=== PATIENT | female | born 1990 | race Caucasian/White ===

== ENCOUNTER 2017-12-15 18:28 | Outpatient (CLI) | payer MEDICAID ==
[2017-12-15] MEDS ORDERED: TERBUTALINE 1 MG/ML VIAL SUBQ ONE (19:12)
[2017-12-15 19:34] VITALS: BP 130/56
[2017-12-15] MEDS ORDERED: TERBUTALINE 1 MG/ML VIAL SUBQ SCH (20:00)
[2017-12-15] MEDS ORDERED: TERBUTALINE 2.5 MG TABLET PO SCH ×2 (20:12→21:00)
[2017-12-15] MEDS ORDERED: TERBUTALINE 2.5 MG TABLET PO PRN (21:00)
== END 2017-12-15 20:52 | disposition home or self-care (01) ==
LOC: WFO 18:28 → FBP 18:36 → WFO 20:52
PROVIDERS: ATTEND Obstetrics & Gynecology
DX: O47.03 False labor before 37 completed weeks of gestation, third trimester (principal); Z3A.34 34 weeks gestation of pregnancy; O99.89 Other specified diseases and conditions complicating pregnancy, childbirth and the puerperium; R10.11 Right upper quadrant pain; R51 Headache
CPT/HCPCS: 82731; 96372; 99213; A9270

== ENCOUNTER 2018-01-11 20:22 | Outpatient (CLI) | payer MEDICAID ==
[2018-01-11 20:44] VITALS: BP 121/76
== END 2018-01-11 21:48 | disposition home or self-care (01) ==
LOC: WFO 20:22 → FBP 20:25 → WFO 21:48
PROVIDERS: ATTEND Obstetrics & Gynecology
DX: Z34.03 Encounter for supervision of normal first pregnancy, third trimester (principal); Z3A.37 37 weeks gestation of pregnancy
CPT/HCPCS: 99213

== ENCOUNTER 2018-01-19 12:46 | Outpatient (CLI) | payer MEDICAID ==
[2018-01-19 12:59] VITALS: BP 127/79
[2018-01-19 14:15] LABS: RUPTURE OF MEMBRANES PLUS NEGATIVE (NEGATIVE)
== END 2018-01-19 14:30 | disposition home or self-care (01) ==
LOC: WFO 12:46 → FBP 12:46 → WFO 14:30
PROVIDERS: ATTEND Obstetrics & Gynecology
DX: O75.89 Other specified complications of labor and delivery (principal); Z3A.37 37 weeks gestation of pregnancy
CPT/HCPCS: 84112; 99213

== ENCOUNTER 2019-01-10 15:23 | Emergency (ER) | payer MEDICAID ==
[2019-01-10 16:04] LABS: BILIRUBIN,URINE NEGATIVE (NEGATIVE); CLARITY,URINE CLEAR (CLEAR); GLUCOSE, URINE (UA) NEGATIVE (NEGATIVE); KETONES,URINE (UA) NEGATIVE (NEGATIVE); LEUKOCYTE ESTERASE, URINE NEGATIVE (NEGATIVE); NITRITE,URINE NEGATIVE (NEGATIVE); OCCULT BLOOD,URINE TRACE-LYSE (NEGATIVE); PROTEIN,URINE NEGATIVE (NEGATIVE); UROBILINOGEN,URINE 0.2 (NORMAL) E.U./dL (NORMAL)
[2019-01-10 16:07] LABS: HCG UR QUAL POSITIVE
--- NOTE | 2019-01-10 17:18 | Ultrasound Report ---
Reason: vaginal bleeding Procedure Date: 01/10/2019 Accession Number: [id number] / [id number] Procedure: US - OB First Trimester CPT Code: FULL RESULT: EXAM: FIRST TRIMESTER OBSTETRIC ULTRASOUND (Less than 11 weeks) EXAM DATE: 01/10/2019 04:49 PM. CLINICAL HISTORY: Vaginal bleeding. LMP: 11/23/2018. COMPARISONS: None. TECHNIQUE: Transabdominal and transvaginal ultrasound examination with static image documentation. ASSESSMENT: Gestational Sac: Single intrauterine. Mean gestational sac diameter: 8 mm = 4 weeks 5 days. Embryo: CRL (crown-rump length) 3 mm = 5 weeks 6 days. Cardiac activity: 113 beats per minute. Yolk sac: 2 mm. Amniotic fluid: Not accurately assessed at this gestational age. Early placenta: Not visible at this gestational age. Other: No perigestational fluid collection demonstrated. MATERNAL STRUCTURES: Uterus: Anteverted. Unremarkable. Cervix: Closed. Right Ovary/Adnexa: Unremarkable. Left Ovary/Adnexa: Unremarkable. Free Fluid: None. Other: None. IMPRESSION: There is a single live intrauterine gestation. [place]-rump length of 0.3 cm corresponds to an estimated gestational age by ultrasound of 5 weeks 6 days. heart rate is 113 bpm. No significant perigestational or adnexal abnormalities are seen. RADIA
--- NOTE | 2019-01-10 17:34 | ED Physician Documentation ---
PD HPI ABD PAIN - Stated complaint Stated Complaint: FEM /7WKS PREG - Chief complaint Chief Complaint: Abd Pain - History obtained from History obtained from: Patient - History of Present Illness Timing - onset: Other ( at 6-7 weeks presents with ongoing light vaginal bleeding for a few days. She was seen in the clinic but was unable to obtain an outpatient ultrasound. Blood type is known to be O+.) Review of Systems Constitutional: reports: Reviewed and negative Cardiac: reports: Reviewed and negative Respiratory: reports: Reviewed and negative PD PAST MEDICAL HISTORY - Allergies Allergies/Adverse Reactions: Allergies Allergy/AdvReac Type Severity Reaction Status Date / Time Sulfa (Sulfonamide Allergy Unknown Unknown Verified 01/10/19 15:40 Antibiotics) PD ED PE NORMAL - Vitals Vital signs reviewed: Yes - General General: Alert and oriented X 3, No acute distress - Abdomen Abdomen: Soft, Non tender - Neuro Neuro: Alert and oriented X 3, Normal speech Results - Vitals Vitals: Vital Signs - 24 hr 01/10/19 15:36 Temperature 36.6 C Heart Rate 97 Respiratory 18 Rate Blood Pressure 132/69 H O2 Saturation 100 Oxygen O2 Source Room air - Labs Labs: Laboratory Tests 01/10/19 01/10/19 01/10/19 15:57 15:57 16:00 Urine Color YELLOW Urine Clarity CLEAR Urine pH 6.0 Ur Specific [place] <=1.005 <=1.005 Urine Protein NEGATIVE Urine Glucose (UA) NEGATIVE Urine Ketones NEGATIVE Urine Occult Blood TRACE-LYSE Urine Nitrite NEGATIVE Urine Bilirubin NEGATIVE Urine Urobilinogen 0.2 (NORMAL) Ur Leukocyte Esterase NEGATIVE Ur Microscopic Review NOT INDICATED Urine Culture Comments NOT INDICATED Urine HCG, Qual POSITIVE Blood Type O POSITIVE - Rads (name of study) OB sono Radiology: EMP read contemporaneously (Single live intrauterine with gestational age of 5 weeks and 6 days, heart rate 113.) Departure - Departure Disposition: 01 Home, Self Care Clinical Impression: Threatened affecting intrauterine Condition: Good Record reviewed to determine appropriate education?: Yes Comments: Return for new or worsening symptoms, follow-up with your OB later this week.
[2019-01-10 17:47] VITALS: BP 115/80
== END 2019-01-10 17:50 | disposition home or self-care (01) ==
LOC: ED 15:23
DX: O20.0 Threatened abortion (principal); Z3A.01 Less than 8 weeks gestation of pregnancy
CPT/HCPCS: 36415; 76801; 76817; 81001; 81003; 81025; 86900; 86901; 87086; 99283

== ENCOUNTER 2019-04-10 06:59 | Emergency (ER) | payer MEDICAID ==
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
--- NOTE | 2019-04-10 08:50 | Ultrasound Report ---
Reason: abdominal contusion right sided pain/contractions Procedure Date: 04/10/2019 Accession Number: [id number] / [id number] Procedure: US - OB 14+ Weeks CPT Code: FULL RESULT: EXAM: FOLLOW-UP OBSTETRICAL ULTRASOUND EXAM DATE: 04/10/2019 07:40 AM. CLINICAL HISTORY: Abdominal contusion right sided pain/contractions. COMPARISON: OB FIRST TRIMESTER 01/10/2019 4:17 PM. TECHNIQUE: Real-time sonographic evaluation of the fetus performed by the court stenographer. Additional transvaginal imaging to more accurately evaluate cervical length/placental position/etc. Multiple airline security representative static images were saved for review. DATING: DATING: Established EGA 18 weeks 3 days with RITA 09/08/2019 per patient stated RITA. EGA by prior ultrasound of 01/10/2019 18 weeks 5 days with RITA 09/06/2019. EGA by current ultrasound 18 weeks 2 days with RITA 09/09/2019. GENERAL EVALUATION Bartholomew . Cardiac activity: 146 bpm. movement: Visualized. Presentation: Cephalic. Placenta: Anterior/maternal right position. Focal thickening of the anterior lower uterine segment probably contraction. Amniotic fluid: Objectively normal. MVP 5.9 cm. BIOMETRY Bi-Parietal Diameter (BPD): 4.3 cm, 18 weeks 6 days Head Circumference (HC): 15.4 cm, 18 weeks 2 days Abdominal Circumference (AC): 13.2 cm, 18 weeks 4 days Femur Length (FL): 2.6 cm, 18 weeks 6 days Estimated Weight: 236 g, 41 percentile for 18 weeks 3 days. ANATOMY Limited evaluation of anatomy. No gross abnormality. MATERNAL STRUCTURES Cervix appears closed measuring 4.2 cm transabdominally. Otherwise unremarkable to the extent visualized. IMPRESSION: 1. Bartholomew live intrauterine with gestational age 18 weeks 3 days (RITA 09/08/2019) based on patient stated RITA. 2. Estimated weight is within expected limits for assigned dating. 3. Probable lower uterine segment contraction. Consider short interval follow-up ultrasound to confirm resolution. RADIA
[2019-04-10 09:30] LABS: BILIRUBIN,URINE NEGATIVE (NEGATIVE); GLUCOSE, URINE (UA) NEGATIVE (NEGATIVE); KETONES,URINE (UA) NEGATIVE (NEGATIVE); LEUKOCYTE ESTERASE, URINE NEGATIVE (NEGATIVE); NITRITE,URINE NEGATIVE (NEGATIVE); OCCULT BLOOD,URINE NEGATIVE (NEGATIVE); PH,URINE 6.5 PH (5.0-7.5); PROTEIN,URINE NEGATIVE (NEGATIVE); UROBILINOGEN,URINE 0.2 (NORMAL) E.U./dL (NORMAL)
[2019-04-10 09:33] LABS: CLARITY,URINE CLEAR (CLEAR)
[2019-04-10] MEDS ORDERED: NIFEdipine 10 MG CAPSULE PO STA (09:47)
[2019-04-10] MEDS ORDERED: ONDANSETRON 4 MG/2 ML VIAL IVP STA (12:12)
[2019-04-10] MEDS ORDERED: ONDANSETRON ODT 4 MG TABLET TL STA ×2 (12:13→12:46)
[2019-04-10 13:17] VITALS: BP 115/73
== END 2019-04-10 13:22 | disposition home or self-care (01) ==
LOC: ED 06:59
DX: O99.89 Other specified diseases and conditions complicating pregnancy, childbirth and the puerperium (principal); S30.1XXA Contusion of abdominal wall, initial encounter; X50.9XXA Other and unspecified overexertion or strenuous movements or postures, initial encounter; Y93.89 Activity, other specified
CPT/HCPCS: 76805; 81003; 87210; 99283; A9270; Q0162; 81001; 87086

== ENCOUNTER 2019-06-27 09:01 | Outpatient (CLI) | payer MEDICAID ==
[2019-06-27 09:33] VITALS: BP 129/81
[2019-06-27 10:01] LABS: BASOPHILS % (AUTO) 0.4 %; EOSINOPHILS # (AUTO) 0.1 10^3/uL (0.0-0.7); HGB - HEMOGLOBIN 11.7 g/dL (12.0-16.0); LYMPHOCYTES # (AUTO) 1.2 10^3/uL (1.5-3.5); LYMPHOCYTES % (AUTO) 10.7 %; MEAN CORPUSCULAR HEMOGLOBIN 30.6 pg (27.0-31.0); MEAN CORPUSCULAR HGB CONC 33.5 g/dL (32.0-36.0); MEAN CORPUSCULAR VOLUME 91.4 fL (81.0-99.0); MEAN PLATELET VOLUME 9.8 fL (7.9-10.8); MONOCYTES # (AUTO) 0.9 10^3/uL (0.0-1.0); MONOCYTES % (AUTO) 8.3 %; NEUTROPHILS # (AUTO) 8.7 10^3/uL (1.5-6.6); NEUTROPHILS % (AUTO) 78.9 %; PLT - PLATELET COUNT 222 10^3/uL (130-450); RED BLOOD COUNT 3.82 10^6/uL (4.20-5.40); RED CELL DISTRIBUTION WIDTH 12.1 % (12.0-15.0)
[2019-06-27 10:22] LABS: BILIRUBIN,URINE NEGATIVE (NEGATIVE); GLUCOSE, URINE (UA) NEGATIVE (NEGATIVE); KETONES,URINE (UA) NEGATIVE (NEGATIVE); LEUKOCYTE ESTERASE, URINE NEGATIVE (NEGATIVE); NITRITE,URINE NEGATIVE (NEGATIVE); OCCULT BLOOD,URINE NEGATIVE (NEGATIVE); PROTEIN,URINE NEGATIVE (NEGATIVE); UROBILINOGEN,URINE 0.2 (NORMAL) E.U./dL (NORMAL)
[2019-06-27 10:28] LABS: CLARITY,URINE CLEAR (CLEAR)
[2019-06-27 10:33] LABS: BACTERIA,URINE Rare /HPF (None Seen); RBC,URINE 0-5 /HPF (0-5); SQUAMOUS EPITHELIAL CELL,UR FEW Squamous (<= Few)
[2019-06-27] MEDS ORDERED: SODIUM CHLORIDE FLUSH 0.9% 10 ML SYRINGE ONE ×2 (12:39→13:08)
[2019-06-27] MEDS ORDERED: LACTATED RINGERS 1,000 ML IV ONE ×2 (12:39→13:45)
--- NOTE | 2019-06-27 14:30 | PROVIDER PROGRESS NOTE ---
- HPI Chief Complaint: Labor Check (The patient came in todayComplaining of lower pelvic pain mostly on the right at first and then bilateral as well as low back pain. She is a patient of [facility]. She is a 28-year-old 3 Para 1-0-1-1. She has an RITA of 09/08/2019.She had intercourse last night and had some spotting earlier.She denies any fevers or chills or vaginal fluid.) Current : Vital Signs Temperature 37.2 C 06/27/19 09:29 Heart Rate 98 06/27/19 09:29 Respiratory Rate 17 06/27/19 09:29 Blood Pressure 129/81 H 06/27/19 09:29 O2 Saturation 100 06/27/19 09:29 Temperature 37.2 C 06/27/19 09:29 Heart Rate 98 06/27/19 09:29 Respiratory Rate 17 06/27/19 09:29 Blood Pressure 129/81 H 06/27/19 09:29 O2 Saturation 100 06/27/19 09:29 - Procedures OB Procedure Performed: NST Diagnosis/Indication for NST: Other ( contractions) NST Procedure: The fetus is reactive. Service Date of procedure: 06/27/19 Findings: The fetus is reactive. - Plan Plan: Physical exam: Heart: Regular rate and rhythm without murmur Lungs: Lungs are clear to auscultation bilaterally without wheezes, Rales or rhonchi Neck: Neck is supple without thyromegaly, cervical lymphadenopathy or supraclavicular lymphadenopathy. Abdomen: The abdomen is soft, pliable and nontender. She has normoactive bowel sounds. The uterus is soft and nontender. She appears to be having some very mild contractions on the monitor when she arrived. These are not even palpable however on exam. Pelvic: The cervix is thick closed and posterior. No parts are noted in the pelvis at all. The patient was hydrated. A urine and CBC were both unremarkable.After hydration there was no contractions noted all the patient also stated that she felt better. When she first arrived the nurse tried to have her take p.o. fluids but she really was not taking much with regards to p.o. fluids.The IV was therefore started.Her cervix was rechecked after approximately 2-1/2 to 3 hours and no cervical changes were appreciated. Impression: at29 weeks and 4 days gestation. Mild dehydration. Plan: The patient is being discharged home. She will follow-up with her regular OB provider. She will follow-up at [facility] if she has any further problems.
== END 2019-06-27 14:20 | disposition home or self-care (01) ==
LOC: WFO 09:01 → FBP 09:03 → WFO 14:20
PROVIDERS: ATTEND Obstetrics & Gynecology
DX: O99.283 Endocrine, nutritional and metabolic diseases complicating pregnancy, third trimester (principal); E86.0 Dehydration; Z3A.29 29 weeks gestation of pregnancy
CPT/HCPCS: 36415; 81001; 85025; 99214; J7120; 59025; 87086

== ENCOUNTER 2019-07-30 17:19 | Outpatient (CLI) | payer MEDICAID ==
[2019-07-30 17:33] VITALS: BP 130/74
--- NOTE | 2019-07-30 18:51 | PROVIDER PROGRESS NOTE ---
- HPI Chief Complaint: Labor Check Current : Current EDU 09/08/19 Gestation 34 Weeks and 2 Days 3 Para 1 Vital Signs Temperature 37.1 C 07/30/19 17:30 Heart Rate 100 07/30/19 17:30 Respiratory Rate 18 07/30/19 17:30 Blood Pressure 130/74 07/30/19 17:30 O2 Saturation 100 07/30/19 17:30 Temperature 37.1 C 07/30/19 17:30 Heart Rate 100 07/30/19 17:30 Respiratory Rate 18 07/30/19 17:30 Blood Pressure 130/74 07/30/19 17:30 O2 Saturation 100 07/30/19 17:30 The patient came to labor and delivery tonight for evaluation of your contractions. She stated that they began somewhat abruptly at about 3:00 this afternoon and were occurring about every 2 minutes and got stronger. She denied any vaginal bleeding or fluid. She did say that she passed a lot of mucus yesterday.She is without other complaint. She states that she is to deliver at [facility] due to possible skeletal dysplasia with regards to the fetus. Review of her last note reports that diagnosis somewhat in question at this time but still for safeguard reason she will deliver there. - Exam Lungs: Lungs were clear to auscultation bilaterally without wheezes rales or rhonchi Heart: Heart has regular rate and rhythm without murmur Abdomen: The abdomen is soft, pliable and nontender. The patient is having somewhat irregular contractions palpated. The uterus is soft and nontender between actually moderate contractions. Pelvic the labor and delivery nurse checked her about 45 minutes ago and her cervix at that time was reported to be 1 to 2 cm. My exam at this time reveals it to be unchanged. She appears to be may be 25% effaced. Cervix is posterior. The fetus is at a -2 station.There is a category 1 EFM noted. The fetus has good accelerations. The patient has now been in labor and delivery for proximately 2 hours. Her cervix is again rechecked and found to be completely unchanged.Contractions are somewhat irregular.A category 1 EFM is still noted - Procedures Findings: Impression: Intrauterine at 34 weeks 2 days gestation False labor Rule out early labor Possible skeletal dysplasia Plan: The patient is going to be discharged home. She was told that if she begins having strong contractions which occur every 5 minutesOr if she has vaginal bleeding or fluid to come back here or to had to [facility] for further evaluation.Her next appointment is on 08/08/2019.She was told to keep that appointment.Again her care at this point in time has been transferred completely to [facility] from [facility].
== END 2019-07-30 20:08 | disposition home or self-care (01) ==
LOC: WFO 17:19 → FBP 17:21 → WFO 20:08
PROVIDERS: ATTEND Obstetrics & Gynecology
DX: O47.03 False labor before 37 completed weeks of gestation, third trimester (principal); Z3A.34 34 weeks gestation of pregnancy
CPT/HCPCS: 59025; 99214

== ENCOUNTER 2019-11-04 05:38 | Emergency (ER) | payer MEDICAID ==
[2019-11-04] MEDS ORDERED: ONDANSETRON ODT 4 MG TABLET TL STA (05:54)
--- NOTE | 2019-11-04 05:57 | ED Physician Documentation ---
History of Present Illness - Stated complaint Stated Complaint: CHEST PX/ ARMS HEAVY, N/V - Chief complaint Chief Complaint: Cardiac - Additonal information Additional information: This is a 29-year-old female who presents with chest pain and left arm tingling. Patient was up around 3 hours ago with her young child, and she suddenly began developing some pain in her chest, which was substernal, and was followed by her left arm going numb and tingly. The subsequently resolved, patient states that she has been under a lot of stress and not sleeping well because the new child. She is about 9 weeks . She denies any history of blood clots, no leg swelling, her breathing feels normal at this time. She has no fever, no abdominal pain. She did vomit at home prior to arrival. Review of Systems Constitutional: denies: Fever Cardiac: reports: Chest pain / pressure Respiratory: denies: Hemoptysis GI: denies: Abdominal Pain : denies: Dysuria Skin: denies: Rash Neurologic: denies: Generalized weakness Immunocompromised: denies: Immunocompromised PD PAST MEDICAL HISTORY - Past Surgical History Past Surgical History: No - Present Medications Home Medications: Ambulatory Orders Medication Instructions Recorded Confirmed Sertraline [Zoloft] 25 mg PO DAILY 11/04/19 11/04/19 - Allergies Allergies/Adverse Reactions: Allergies Allergy/AdvReac Type Severity Reaction Status Date / Time Sulfa (Sulfonamide Allergy Unknown Unknown Verified 11/04/19 05:45 Antibiotics) - Social History Does the pt smoke?: No Smoking Status: Never smoker Does the pt drink ETOH?: No Does the pt have substance abuse?: No - Immunizations Immunizations are current?: Yes PD ED PE NORMAL - Vitals Vital signs reviewed: Yes - General General: Alert and oriented X 3, No acute distress - HEENT HEENT: PERRL - Neck Neck: Supple, no meningeal sign - Cardiac Cardiac: Other (Tachycardic, regular rhythm) - Respiratory Respiratory: No respiratory distress, Clear bilaterally - Abdomen Abdomen: Normal bowel sounds, Soft, Non distended, Other (Mild epigastric tenderness with very deep palpation, abdomen is otherwise nontender. No RUQ tenderness) - Derm Derm: Warm and dry - Extremities Extremities: No deformity - Neuro Neuro: Alert and oriented X 3, supply chain development manager 2-12 intact, No motor deficit, No sensory deficit, Normal speech - Psych Psych: Normal mood, Normal affect Results - Vitals Vitals: Vital Signs - 24 hr 11/04/19 11/04/19 11/04/19 05:42 06:04 06:25 Temperature 36.7 C Heart Rate 101 H 97 93 Respiratory 16 27 H 17 Rate Blood Pressure 142/85 H 156/107 H 156/107 H O2 Saturation 96 95 96 Oxygen O2 Source Room air - EKG (time done) 5:54 Other comments: Other comments (Rate 93, rhythm sinus, there is no ST segment elevation or depression, no abnormal T wave inversions.) - Labs Labs: Laboratory Tests 11/04/19 11/04/19 11/04/19 06:00 06:00 06:00 WBC 4.0 L RBC 4.46 Hgb 13.7 Hct 41.5 MCV 93.0 MCH 30.7 MCHC 33.0 RDW 14.9 Plt Count 185 MPV 9.4 Neut # (Auto) 2.9 Lymph # (Auto) 0.7 L [place] # (Auto) 0.4 Eos # (Auto) 0.0 Baso # (Auto) 0.0 Absolute Nucleated RBC 0.00 Nucleated RBC % 0.0 D-Dimer Sodium 138 Potassium 3.7 Chloride 101 Carbon Dioxide 23 Anion Gap 14.0 H BUN 11 Creatinine 0.5 Estimated GFR (MDRD) 144 Glucose 90 Calcium 8.6 Total Bilirubin 0.9 AST 210 H ALT 191 H Alkaline Phosphatase 82 Troponin I High Sens < 2.3 L Total Protein 7.8 Albumin 4.5 Globulin 3.3 Albumin/Globulin Ratio 1.4 Lipase 24 HCG, Quant 11/04/19 11/04/19 06:00 06:00 WBC RBC Hgb Hct MCV MCH MCHC RDW Plt Count MPV Neut # (Auto) Lymph # (Auto) [place] # (Auto) Eos # (Auto) Baso # (Auto) Absolute Nucleated RBC Nucleated RBC % D-Dimer 233.0 Sodium Potassium Chloride Carbon Dioxide Anion Gap BUN Creatinine Estimated GFR (MDRD) Glucose Calcium Total Bilirubin AST ALT Alkaline Phosphatase Troponin I High Sens Total Protein Albumin Globulin Albumin/Globulin Ratio Lipase HCG, Quant < 0.60 - Rads (name of study) Chest Radiology: Other (No acute cardiopulmonary abnormality) RUQ US Radiology: Other (Increased echogenicity of the liver, representing potentially fatty liver disease. No gallstones, gallbladder wall edema, or common bile duct dilation.) PD MEDICAL DECISION MAKING - ED course Complexity details: considered differential (ACS, dysrhythmia, PE, anxiety, biliary colic, cholecystitis, choledocholithiasis, hepatitis, electrolyte abnormality) ED course: On arrival patient is mildly tachycardic, well-appearing with a normal neurologic exam. Her EKG shows no convincing signs of ischemia or dysrhythmia. Labs were drawn, and her blood counts are unremarkable, HS troponin is negative, given her history, and low cardiac risk factors ACS is extremely unlikely. PE also is unlikely, but given that she is tachycardic a d-dimer was obtained and is negative. Chest x-ray shows no acute cardiopulmonary abnormality. Her labs are notable for an ALT and AST elevation, reviewing her past records I do not see any prior values for comparison. She is not really tender in her abdomen, but given her vomiting, right upper quadrant ultrasound was obtained and shows likely fatty liver disease with no signs of acute biliary pathology. On repeat examination patient is feeling well, her abdomen is soft and non-tender, she is tolerating PO fluids without issue, she has had no further chest pain or arm symptoms. I discussed the results, return precautions, and the importance of following up closely with her primary care provider on both her symptoms and her LFT elevations. It also sounds like patient has been under a lot of stress with her new baby, she has no SI, and it sounds like she has excellent support network and plans to lean on them more going forward. Patient agrees with this plan and was discharged home in the care of family. Departure - Departure Disposition: 01 Home, Self Care Clinical Impression: Elevated LFTs Chest pain Qualifiers: Chest pain type: unspecified Qualified Code(s): R07.9 - Chest pain, unspecified Condition: Good Instructions: ED Chest Pain Atypical Unkn Cause Follow-Up: Your,PCP [Other] Comments: You were seen today for an episode of chest pain, arm tingling, and vomiting. Your labs today are overall reassuring, though your liver enzymes are somewhat elevated (AST 210, ALT 190 alk phos 82, bilirubin 0.9). We do not see signs of acute problems with your gallbladder, but there is some fatty liver on ultras ound. Please follow-up on your liver enzyme tests with your primary care provider. If you are having worsening symptoms such as recurring or worsening chest pain, repeated vomiting, abdominal pain, yellowing of your skin, or fever, return to the emergency department.
[2019-11-04 06:11] LABS: BASOPHILS % (AUTO) 0.7 %; EOSINOPHILS % (AUTO) 0.5 %; HGB - HEMOGLOBIN 13.7 g/dL (12.0-16.0); LYMPHOCYTES # (AUTO) 0.7 10^3/uL (1.5-3.5); LYMPHOCYTES % (AUTO) 17.4 %; MEAN CORPUSCULAR HEMOGLOBIN 30.7 pg (27.0-31.0); MEAN PLATELET VOLUME 9.4 fL (7.9-10.8); MONOCYTES # (AUTO) 0.4 10^3/uL (0.0-1.0); MONOCYTES % (AUTO) 9.5 %; NEUTROPHILS # (AUTO) 2.9 10^3/uL (1.5-6.6); NEUTROPHILS % (AUTO) 71.7 %; PLT - PLATELET COUNT 185 10^3/uL (130-450); RED BLOOD COUNT 4.46 10^6/uL (4.20-5.40); RED CELL DISTRIBUTION WIDTH 14.9 % (12.0-15.0)
[2019-11-04 06:26] LABS: ALBUMIN 4.5 g/dL (3.2-5.5); ALBUMIN/GLOBULIN RATIO 1.4 (1.0-2.2); BILIRUBIN,TOTAL 0.9 mg/dL (0.2-1.0); CALCIUM 8.6 mg/dL (8.5-10.3); CREATININE 0.5 mg/dL (0.4-1.0); TOTAL PROTEIN 7.8 g/dL (6.7-8.2)
--- NOTE | 2019-11-04 06:53 | XRAY Report ---
Reason: cough Procedure Date: 11/04/2019 Accession Number: [id number] / [id number] Procedure: XR - Chest 2 View X-Ray CPT Code: 45808 Final Report FULL RESULT: EXAM: CHEST RADIOGRAPHY EXAM DATE: 11/04/2019 06:46 AM. CLINICAL HISTORY: Cough. COMPARISON: XR CHEST PA AND LAT 01/05/2009 11:42 PM. TECHNIQUE: 2 views. FINDINGS: Lungs/Pleura: No focal opacities evident. No pleural effusion. No pneumothorax. Normal volumes. Mediastinum: Heart and mediastinal contours are unremarkable. Other: None. IMPRESSION: Normal 2-view chest radiography. RADIA
--- NOTE | 2019-11-04 07:42 | Ultrasound Report ---
Reason: Vomiting, LFT elevations Procedure Date: 11/04/2019 Accession Number: [id number] / [id number] Procedure: US - Abdomen Limited CPT Code: Final Report FULL RESULT: EXAM: ABDOMEN ULTRASOUND LIMITED, RUQ EXAM DATE: 11/04/2019 07:14 AM. CLINICAL HISTORY: Vomiting, LFT elevations. Epigastric pain. COMPARISON: None. TECHNIQUE: Real-time scanning was performed with static images obtained. FINDINGS: Liver: Diffusely heterogeneous and increased in echogenicity suggesting fatty infiltration or other hepatocellular disease. Measures 16.2 cm. No focal lesions identified sonographically. Main portal vein flow: Hepatopetal. Gallbladder: Normal. No stones, pericholecystic fluid, wall thickening, or sonographic Valdovinos's sign. Biliary System: CBD measures 4 mm, within normal limits. No intrahepatic or extrahepatic ductal dilatation. Pancreas: Visualized portions unremarkable. Other: Right kidney measures 12.7 cm in length without hydronephrosis. IMPRESSION: 1. No cholelithiasis or cholecystitis. 2. Diffusely echogenic/heterogeneous liver suggesting fatty infiltration or other hepatocellular disease. RADIA
[2019-11-04 08:08] VITALS: BP 147/81
== END 2019-11-04 08:09 | disposition home or self-care (01) ==
LOC: ED 05:38
DX: R07.9 Chest pain, unspecified (principal); R00.0 Tachycardia, unspecified; R11.10 Vomiting, unspecified; R74.8 Abnormal levels of other serum enzymes; R94.5 Abnormal results of liver function studies
CPT/HCPCS: 36415; 71046; 76705; 80053; 83690; 84484; 84702; 85025; 85379; 93005; 99284; Q0162

== ENCOUNTER 2019-11-05 14:18 | Emergency (ER) | payer MEDICAID ==
[2019-11-05 14:26] VITALS: BP 139/88
[2019-11-05] MEDS ORDERED: PROPARACAINE 0.5% OPHTH DROPS 15 ML LEFTEYE STA (14:36)
--- NOTE | 2019-11-05 14:37 | ED Physician Documentation ---
PD HPI OPHTHO - Stated complaint Stated Complaint: EYE PX - Chief complaint Chief Complaint: Heent - History obtained from History obtained from: Patient, Family - History of Present Illness Timing - onset: Last night Timing - duration: Hours Timing - details: Abrupt onset, Still present, Still present in ED Location: Left Quality / character: Sharp Associated symptoms: Redness, Tearing, FB sensation, Photophobia. No: Decreased vision, Loss of vision Contributing factors: Wears contacts Similar symptoms before: Diagnosis (corneal abrasion) Recently seen: Emergency Dept - Additional information Additional information: 29-year-old female who wears contact lenses got something in her eye last night. She has persistent FB sensation and tearing. She has had corneal abrasion previously and this feels similar. She has had shingles to the area around her waist previously. She was recently seen in the ED for stress. Review of Systems Constitutional: denies: Fever Eyes: reports: Photophobia, Irritation. denies: Decreased vision Ears: denies: Ear pain Nose: denies: Rhinorrhea / runny nose, Congestion Respiratory: denies: Cough PD PAST MEDICAL HISTORY - Past Medical History Psych: Depression, Other Other Past Medical History: Narcolepsy. - Past Surgical History Past Surgical History: Yes HEENT: Tonsil/Adenoidectomy - Present Medications Home Medications: Ambulatory Orders Medication Instructions Recorded Confirmed Sertraline [Zoloft] 25 mg PO DAILY 11/04/19 11/04/19 Neomycin/Poly/Dex Ophth Drops 1 drops LEFTEYE QID #1 bottle 11/05/19 [Maxitrol Ophth Drops] - Allergies Allergies/Adverse Reactions: Allergies Allergy/AdvReac Type Severity Reaction Status Date / Time Sulfa (Sulfonamide Allergy Unknown Unknown Verified 11/04/19 05:45 Antibiotics) - Social History Does the pt smoke?: No Smoking Status: Never smoker Does the pt drink ETOH?: No Does the pt have substance abuse?: No - Immunizations Immunizations are current?: Yes - POLST Patient has POLST: No PD ED PE NORMAL - Vitals Vital signs reviewed: Yes (hypertensive ) - General General: Alert and oriented X 3, Well developed/nourished - HEENT HEENT: Atraumatic, PERRL, EOMI, Other (There is central uptake of fluoscien in a tiny spot isolated. There is no FB under the lid, there is no direct trauma to the globe. It appears intact without hyphema and a symetric pupil. ) - Neck Neck: Supple, no meningeal sign, No bony TTP - Respiratory Respiratory: No respiratory distress - Derm Derm: Normal color, Warm and dry, No rash - Extremities Extremities: No deformity, No edema - Neuro Neuro: Alert and oriented X 3, sole buffer 2-12 intact, No motor deficit, No sensory deficit, Normal speech Eye Opening: Spontaneous Motor: Obeys Commands Verbal: Oriented GCS Score: 15 - Psych Psych: Normal mood, Normal affect Results - Vitals Vitals: Vital Signs - 24 hr 11/05/19 14:24 Temperature 36.9 C Heart Rate 76 Respiratory 18 Rate Blood Pressure 139/88 H O2 Saturation 99 Oxygen O2 Source Room air PD MEDICAL DECISION MAKING - ED course Complexity details: considered differential, d/w patient ED course: 29-year-old female with a corneal abrasion to the left eye does not have evidence of simplex and the abrasion does not appear deep or large. We will place her on Maxitrol ophthalmic drops and she will follow-up with Dr. Jung as needed. Departure - Departure Disposition: 01 Home, Self Care Clinical Impression: Corneal abrasion, left Qualifiers: Encounter type: initial encounter Qualified Code(s): S05.02XA - Injury of conjunctiva and corneal abrasion without foreign body, left eye, initial encounter Condition: Stable Instructions: ED Eye Injury Corneal Abrasion Follow-Up: Joseph Jung MD [Provider Admit Priv/Credential] - Prescriptions: Neomycin/Poly/Dex Ophth Drops [Maxitrol Ophth Drops] 1 drops LEFTEYE QID #1 bottle
== END 2019-11-05 15:06 | disposition home or self-care (01) ==
LOC: ED 14:18
DX: S05.02XA Injury of conjunctiva and corneal abrasion without foreign body, left eye, initial encounter (principal); X58.XXXA Exposure to other specified factors, initial encounter
CPT/HCPCS: 99282; 99284; J3490

== ENCOUNTER 2020-01-29 19:58 | Emergency (ER) | payer MEDICAID ==
[2020-01-29] MEDS ORDERED: SODIUM CHLORIDE 0.9% 1,000 ML IV ONE (20:34)
[2020-01-29] MEDS ORDERED: HYDROmorphone 1 MG/ML SYRINGE IVP STA (20:34)
[2020-01-29] MEDS ORDERED: KETOROLAC 30 MG/ML VIAL IVP STA (20:34)
--- NOTE | 2020-01-29 20:37 | ED Physician Documentation ---
History of Present Illness - Stated complaint Stated Complaint: RT SIDE PX - Chief complaint Chief Complaint: Abd Pain - History obtained from History obtained from: Patient - Additonal information Additional information: Patient comes emergency department complaining of right upper quadrant abdominal pain that started today. Patient states she has had a little bit of nausea but has not been vomiting. She states that the pain started soon after she woke up. She does not notice any worsening with eating or with certain types of foods. She states that she has chronic diarrhea to some degree, and has a history of diverticulitis. She has not had any fevers. No blood in her stools. No urinary symptoms. Patient has no history of urinary calculi. She still has her gallbladder and appendix. She does not have any personal or family history of gallstones that she knows of. Patient states she does have a history of fatty liver. Otherwise, she states she is healthy. She states she is about 5 months . She describes her pain as a strong cramp which comes in waves. She states at worst is a 10 out of 10 and is made worse by movement or deep breathing. Nothing makes it better. No other complaints at this time. Review of Systems Ten Systems: 10 systems reviewed and negative Constitutional: reports: Reviewed and negative Eyes: reports: Reviewed and negative Ears: reports: Reviewed and negative Nose: reports: Reviewed and negative Throat: reports: Reviewed and negative Cardiac: reports: Reviewed and negative Respiratory: reports: Reviewed and negative GI: reports: Abdominal Pain, Nausea : reports: Reviewed and negative Skin: reports: Reviewed and negative Musculoskeletal: reports: Reviewed and negative Neurologic: reports: Reviewed and negative Psychiatric: reports: Reviewed and negative Endocrine: reports: Reviewed and negative Immunocompromised: reports: Reviewed and negative PD PAST MEDICAL HISTORY - Past Medical History Past Medical History: Yes GI: Diverticulitis Psych: Other Other Past Medical History: Fatty Liver; Cataplexy - Past Surgical History Past Surgical History: Yes HEENT: Tonsil/Adenoidectomy - Present Medications Home Medications: Ambulatory Orders Medication Instructions Recorded Confirmed No Known Home Medications 01/29/20 01/29/20 - Allergies Allergies/Adverse Reactions: Allergies Allergy/AdvReac Type Severity Reaction Status Date / Time Sulfa (Sulfonamide Allergy Unknown Unknown Verified 01/29/20 20:13 Antibiotics) codeine AdvReac Nausea Verified 01/29/20 20:13 - Social History Does the pt smoke?: No Smoking Status: Never smoker Does the pt drink ETOH?: No Does the pt have substance abuse?: No - Immunizations Immunizations are current?: Yes - POLST Patient has POLST: No PD ED PE NORMAL - Vitals Vital signs reviewed: Yes - General General: Alert and oriented X 3, No acute distress, Well developed/nourished, Other (Patient appears moderately uncomfortable, holding her right side and occasionally grimacing.) - HEENT HEENT: Atraumatic, PERRL, EOMI, Moist mucous membranes - Neck Neck: Supple, no meningeal sign - Cardiac Cardiac: RRR, No murmur - Respiratory Respiratory: Clear bilaterally - Abdomen Abdomen: Soft, Non distended, Other (Patient has marked tenderness in her epigastrium and right upper quadrant without rebound. She has voluntary guarding.) - Back Back: Other (Moderate right CVA tenderness.) - Derm Derm: Warm and dry - Extremities Extremities: No deformity, Normal ROM s pain, No edema - Neuro Neuro: Alert and oriented X 3, lieutenant governor 2-12 intact, No motor deficit, No sensory deficit, Normal speech - Psych Psych: Normal mood, Normal affect Results - Vitals Vitals: Vital Signs - 24 hr 01/29/20 01/29/20 01/29/20 20:00 20:57 21:06 Temperature 37.0 C Heart Rate 108 H 88 102 H Respiratory 16 16 Rate Blood Pressure 137/113 H 139/93 H 130/93 H O2 Saturation 97 92 95 01/29/20 01/29/20 01/30/20 21:48 23:10 00:07 Temperature 36.5 C Heart Rate 85 80 85 Respiratory 16 16 16 Rate Blood Pressure 115/98 H 144/90 H 137/85 H O2 Saturation 97 98 97 Oxygen O2 Source Room air - Labs Labs: Laboratory Tests 01/29/20 01/29/20 01/29/20 20:45 20:45 20:45 WBC 5.6 RBC 4.29 Hgb 13.8 Hct 41.5 MCV 96.7 MCH 32.2 H MCHC 33.3 RDW 13.4 Plt Count 150 MPV 10.2 Neut # (Auto) 3.7 Lymph # (Auto) 1.2 L [place] # (Auto) 0.6 Eos # (Auto) 0.0 Baso # (Auto) 0.0 Absolute Nucleated RBC 0.00 Nucleated RBC % 0.0 PT 12.2 INR 1.1 Sodium 135 Potassium 3.7 Chloride 99 L Carbon Dioxide 25 Anion Gap 11.0 BUN 9 Creatinine 0.4 Estimated GFR (MDRD) 186 Glucose 94 Calcium 8.6 Total Bilirubin 0.6 AST 143 H ALT 103 H Alkaline Phosphatase 69 Total Protein 6.9 Albumin 4.2 Globulin 2.7 Albumin/Globulin Ratio 1.6 Lipase 37 Urine Color Urine Clarity Urine pH Ur Specific [place] Urine Protein Urine Glucose (UA) Urine Ketones Urine Occult Blood Urine Nitrite Urine Bilirubin Urine Urobilinogen Ur Leukocyte Esterase Ur Microscopic Review Urine Culture Comments Urine HCG, Qual 01/29/20 20:50 WBC RBC Hgb Hct MCV MCH MCHC RDW Plt Count MPV Neut # (Auto) Lymph # (Auto) [place] # (Auto) Eos # (Auto) Baso # (Auto) Absolute Nucleated RBC Nucleated RBC % PT INR Sodium Potassium Chloride Carbon Dioxide Anion Gap BUN Creatinine Estimated GFR (MDRD) Glucose Calcium Total Bilirubin AST ALT Alkaline Phosphatase Total Protein Albumin Globulin Albumin/Globulin Ratio Lipase Urine Color LT. YELLOW Urine Clarity CLEAR Urine pH 7.0 Ur Specific [place] <=1.005 Urine Protein NEGATIVE Urine Glucose (UA) NEGATIVE Urine Ketones NEGATIVE Urine Occult Blood NEGATIVE Urine Nitrite NEGATIVE Urine Bilirubin NEGATIVE Urine Urobilinogen 0.2 (NORMAL) Ur Leukocyte Esterase NEGATIVE Ur Microscopic Review NOT INDICATED Urine Culture Comments NOT INDICATED Urine HCG, Qual NEGATIVE PD MEDICAL DECISION MAKING - ED course Complexity details: reviewed results, re-evaluated patient, considered differential, d/w patient ED course: Patient was treated symptomatically in the emergency department with IV fluids, Zofran, Toradol, and Dilaudid. She was worked up with labs and initially, ultrasound of the right upper quadrant. Departure - Departure Disposition: 01 Home, Self Care Clinical Impression: Abdominal pain Qualifiers: Abdominal location: right upper quadrant Qualified Code(s): R10.11 - Right upper quadrant pain Condition: Fair Instructions: ED Abdominal Pain Unkn Cause Comments: Your labs show mild elevation of your liver enzymes. This is most likely from the fatty liver that you have chronically. Your gallbladder actually looks okay, and the CT scan does not show an unusually placed, inflamed appendix or other identifiable reason for your pain. As we have discussed, fatty liver generally is not a painful condition. It is possible that you have some focal inflammation from a viral illness, or that you could have some inflammation within the first part of your small intestine from other causes. This can sometimes lead to ulceration. If you continue to have the pain for more than the next few days, you should follow-up with your primary care physician to discuss whether an endoscopy may be helpful for further evaluation. Please take the medication for pain and nausea, as needed.
[2020-01-29] MEDS ORDERED: ONDANSETRON 4 MG/2 ML VIAL IVP STA (20:39)
[2020-01-29 20:55] LABS: BASOPHILS % (AUTO) 0.4 %; EOSINOPHILS % (AUTO) 0.7 %; HGB - HEMOGLOBIN 13.8 g/dL (12.0-16.0); LYMPHOCYTES # (AUTO) 1.2 10^3/uL (1.5-3.5); LYMPHOCYTES % (AUTO) 21.1 %; MEAN CORPUSCULAR HEMOGLOBIN 32.2 pg (27.0-31.0); MEAN CORPUSCULAR HGB CONC 33.3 g/dL (32.0-36.0); MEAN CORPUSCULAR VOLUME 96.7 fL (81.0-99.0); MEAN PLATELET VOLUME 10.2 fL (7.9-10.8); MONOCYTES # (AUTO) 0.6 10^3/uL (0.0-1.0); NEUTROPHILS # (AUTO) 3.7 10^3/uL (1.5-6.6); NEUTROPHILS % (AUTO) 66.4 %; PLT - PLATELET COUNT 150 10^3/uL (130-450); RED BLOOD COUNT 4.29 10^6/uL (4.20-5.40); RED CELL DISTRIBUTION WIDTH 13.4 % (12.0-15.0); WHITE BLOOD COUNT 5.6 x10^3/uL (4.8-10.8)
[2020-01-29 21:00] LABS: BILIRUBIN,URINE NEGATIVE (NEGATIVE); GLUCOSE, URINE (UA) NEGATIVE (NEGATIVE); KETONES,URINE (UA) NEGATIVE (NEGATIVE); LEUKOCYTE ESTERASE, URINE NEGATIVE (NEGATIVE); NITRITE,URINE NEGATIVE (NEGATIVE); OCCULT BLOOD,URINE NEGATIVE (NEGATIVE); PROTEIN,URINE NEGATIVE (NEGATIVE); UROBILINOGEN,URINE 0.2 (NORMAL) E.U./dL (NORMAL)
[2020-01-29 21:01] LABS: INR 1.1 (0.8-1.2); PT - PROTHROMBIN TIME 12.2 secs (9.9-12.6)
[2020-01-29 21:03] LABS: CLARITY,URINE CLEAR (CLEAR); HCG UR QUAL NEGATIVE
[2020-01-29 21:12] LABS: ALBUMIN 4.2 g/dL (3.2-5.5); ALBUMIN/GLOBULIN RATIO 1.6 (1.0-2.2); BILIRUBIN,TOTAL 0.6 mg/dL (0.2-1.0); CALCIUM 8.6 mg/dL (8.5-10.3); CREATININE 0.4 mg/dL (0.4-1.0); TOTAL PROTEIN 6.9 g/dL (6.7-8.2)
--- NOTE | 2020-01-29 22:25 | Ultrasound Report ---
Reason: RUQ abd pain/nausea Procedure Date: 01/29/2020 Accession Number: [id number] / [id number] Procedure: US - Abdomen Limited CPT Code: Final Report FULL RESULT: EXAM: ABDOMEN ULTRASOUND LIMITED, RUQ EXAM DATE: 01/29/2020 09:54 PM. CLINICAL HISTORY: RUQ abd pain/nausea. COMPARISON: ABDOMEN LIMITED 11/04/2019 6:46 AM. TECHNIQUE: Real-time scanning was performed with static images obtained. FINDINGS: Liver: Enlarged and diffusely echogenic with coarsened echotexture.. 19.6 cm. Main portal vein flow: Hepatopetal. No ascites. Gallbladder: Normal. No stones, wall thickening, or sonographic Valdovinos's sign. Biliary System: CBD measures 4 mm. No intrahepatic or extrahepatic ductal dilatation. Pancreas: The visible portions are within normal limits. Right kidney: 12.8 cm in length. Normal echogenicity. No hydronephrosis. IMPRESSION: 1. Moderate diffuse hepatic steatosis. 2. Normal gallbladder. [facility]
[2020-01-29] MEDS ORDERED: diphenhydrAMINE INJ 50 MG/ML VIAL IVP STA (22:59)
[2020-01-29] MEDS ORDERED: PROMETHAZINE INJ 25 MG in SODIUM CHLORIDE 0.9% 50 ML IV STA (22:59)
[2020-01-29] MEDS ORDERED: IOVERSOL 320 100 ML VIAL IVP ONE ×2 (23:00→23:38)
--- NOTE | 2020-01-29 23:54 | CT Report ---
Reason: R side abdominal pain Procedure Date: 01/29/2020 Accession Number: [id number] / [id number] Procedure: CT - Abdomen/Pelvis W CPT Code: Final Report FULL RESULT: EXAM: CT ABDOMEN AND PELVIS EXAM DATE: 01/29/2020 11:36 PM. CLINICAL HISTORY: R side abdominal pain. COMPARISONS: None. TECHNIQUE: Routine helical CT imaging was performed through the abdomen and pelvis. IV contrast: OPTIRAY 320. Enteric contrast: No. Reconstructions: Coronal and sagittal. In accordance with CT protocol optimization, one or more of the following dose reduction techniques were utilized for this exam: automated exposure control, adjustment of mA and/or KV based on patient size, or use of iterative reconstructive technique. FINDINGS: Lung Bases: Unremarkable. Liver: The liver is enlarged measuring 20 cm in length and there is diffuse fatty infiltration. Gallbladder/Bile Ducts: Unremarkable. Spleen: Normal. Pancreas: Normal. Adrenal Glands: Normal. Kidneys: Normal. No masses or hydronephrosis. Peritoneal Cavity/Bowel: Normal. No free fluid, free air or adenopathy. No masses or acute inflammatory process. The appendix is partially seen and there are no inflammatory changes. No inflammatory changes contiguous with the cecum. The colon is unremarkable. Pelvic Organs: Normal. The bladder and visualized pelvic organs are within normal limits. Vasculature: No aneurysms or other significant abnormality. Bones: No significant abnormality. Other: None. IMPRESSION: 1. Hepato-steatosis. Hepatomegaly. 2. Otherwise, negative CT scan abdomen and pelvis. RAD[facility]
[2020-01-30] MEDS ORDERED: HYDROmorphone 1 MG/ML SYRINGE IVP STA (00:25)
[2020-01-30 00:38] VITALS: BP 134/85
== END 2020-01-30 00:38 | disposition home or self-care (01) ==
LOC: ED 19:58
DX: R10.11 Right upper quadrant pain (principal); K76.0 Fatty (change of) liver, not elsewhere classified
CPT/HCPCS: 36415; 74177; 76705; 80053; 81003; 81025; 83690; 85025; 85610; 96361; 96365; 96375; 96376; 99285; J1170; J1200; J7040; Q9967; 81001; 87086

== ENCOUNTER 2020-02-11 16:56 | Outpatient (CLI) | payer MEDICAID | END 2020-02-11 16:57 | disposition critical access hospital (66) | LOC: EMS 16:56 | PROVIDERS: ATTEND Surgery | DX: R55 Syncope and collapse (principal); R06.02 Shortness of breath; R07.89 Other chest pain | CPT/HCPCS: A0425; A0427; A0999 ==

== ENCOUNTER 2020-02-11 17:17 | Emergency (ER) | payer MEDICAID ==
[2020-02-11] MEDS ORDERED: SODIUM CHLORIDE 0.9% 1,000 ML IV ONE (17:24)
--- NOTE | 2020-02-11 17:26 | ED Physician Documentation ---
History of Present Illness - Stated complaint Stated Complaint: SYNCOPE - Chief complaint Chief Complaint: Neuro - History obtained from History obtained from: Patient, EMS - History of Present Illness Timing: Today (29-year-old woman with history of narcolepsy and cataplexy recently treated for diverticulitis about 2 months ago and more recently diagnosed by ultrasound? With a ulcer last week. Today she suddenly felt dizzy and short of breath couple of hours ago. She felt like maybe her usual narcolepsy medicine was too strong but it is her usual dose, no new prescription. Usual timing. She got short of breath and passed out twice without injury. No cough. She remains short of breath now.) Review of Systems Ten Systems: 10 systems reviewed and negative Constitutional: reports: Fatigue. denies: Fever, Chills Nose: denies: Rhinorrhea / runny nose, Congestion Throat: denies: Sore throat Cardiac: denies: Chest pain / pressure, Palpitations, Pedal edema, Calf pain Respiratory: reports: Dyspnea. denies: Cough PD PAST MEDICAL HISTORY - Past Medical History GI: Diverticulitis Psych: Other - Past Surgical History Past Surgical History: Yes HEENT: Tonsil/Adenoidectomy - Present Medications Home Medications: Ambulatory Orders Medication Instructions Recorded Confirmed Dextroamphetamine/Amphetamine 5 mg PO 02/11/20 [Adderall 5 mg Tablet] - Allergies Allergies/Adverse Reactions: Allergies Allergy/AdvReac Type Severity Reaction Status Date / Time Sulfa (Sulfonamide Allergy Unknown Unknown Verified 01/29/20 20:13 Antibiotics) codeine AdvReac Nausea Verified 01/29/20 20:13 - Social History Does the pt smoke?: No Smoking Status: Never smoker Does the pt drink ETOH?: No Does the pt have substance abuse?: No - Immunizations Immunizations are current?: Yes - POLST Patient has POLST: No PD ED PE NORMAL - Vitals Vital signs reviewed: Yes - General General: Alert and oriented X 3, No acute distress - HEENT HEENT: PERRL, EOMI - Neck Neck: Supple, no meningeal sign, No bony TTP - Cardiac Cardiac: Other (Cardiac but regular without murmur) - Respiratory Respiratory: Clear bilaterally, Other (Slightly tachypneic to my eye) - Abdomen Abdomen: Normal bowel sounds, Soft, Non tender - Back Back: No CVA TTP, No spinal TTP - Derm Derm: Normal color, Warm and dry - Extremities Extremities: No edema, No calf tenderness / cord - Neuro Neuro: Alert and oriented X 3, Normal speech Results - Vitals Vitals: Vital Signs - 24 hr 02/11/20 02/11/20 02/11/20 17:20 17:24 17:54 Temperature 37.7 C H Heart Rate 118 H 108 H 110 H Heart Rate [ Sitting] Heart Rate [ Standing] Heart Rate [ Supine] Respiratory 16 20 20 Rate Blood Pressure 173/111 H 145/99 H 153/110 H Blood Pressure [Sitting] Blood Pressure [Standing] Blood Pressure [Supine] O2 Saturation 98 100 100 02/11/20 02/11/20 02/11/20 18:24 18:54 19:12 Temperature 36.7 C Heart Rate 116 H 112 H 110 H Heart Rate [ Sitting] Heart Rate [ Standing] Heart Rate [ Supine] Respiratory 16 16 18 Rate Blood Pressure 129/76 120/74 147/101 H Blood Pressure [Sitting] Blood Pressure [Standing] Blood Pressure [Supine] O2 Saturation 99 100 99 02/11/20 19:28 Temperature Heart Rate Heart Rate [ 112 H Sitting] Heart Rate [ 123 H Standing] Heart Rate [ 114 H Supine] Respiratory Rate Blood Pressure Blood Pressure 149/103 H [Sitting] Blood Pressure 144/110 H [Standing] Blood Pressure 152/96 H [Supine] O2 Saturation Oxygen O2 Source Room air - EKG (time done) 1727 Rate: Rate (enter#) (104) Rhythm: Sinus tachycardia [place]: Normal Intervals: Normal DC QRS: Normal Ischemia: Normal ST segments Computer interpretation: Agree with computer 1920 Rate: Rate (enter#) (113) Rhythm: Sinus tachycardia [place]: Normal Intervals: Normal DC QRS: Normal Ischemia: Normal ST segments Computer interpretation: Agree with computer - Labs Labs: Laboratory Tests 02/11/20 02/11/20 02/11/20 17:25 17:25 17:25 WBC 3.1 L RBC 3.88 L Hgb 12.6 Hct 37.6 MCV 96.9 MCH 32.5 H MCHC 33.5 RDW 14.2 Plt Count 123 L MPV 9.9 Neut # (Auto) 2.0 Lymph # (Auto) 0.7 L [place] # (Auto) 0.4 Eos # (Auto) 0.0 Baso # (Auto) 0.0 Absolute Nucleated RBC 0.00 Nucleated RBC % 0.0 Sodium 137 Potassium 3.0 L Chloride 103 Carbon Dioxide 21 Anion Gap 13.0 BUN 6 Creatinine 0.4 Estimated GFR (MDRD) 186 Glucose 99 Calcium 8.5 Total Bilirubin 0.9 AST 175 H ALT 103 H Alkaline Phosphatase 64 Troponin I High Sens 3.5 Total Protein 7.0 Albumin 4.3 Globulin 2.7 Albumin/Globulin Ratio 1.6 Lipase 29 Ur Specific [place] Urine HCG, Qual Urine Opiates Screen Ur Oxycodone Screen Urine Methadone Screen Ur Propoxyphene Screen Ur Barbiturates Screen Ur Tricyclics Screen Ur Phencyclidine Scrn Ur Amphetamine Screen U Methamphetamines Scrn U Benzodiazepines Scrn Urine Cocaine Screen U Cannabinoids Screen Influenza A (Rapid) Influenza B (Rapid) 02/11/20 02/11/20 02/11/20 17:40 17:48 17:48 WBC RBC Hgb Hct MCV MCH MCHC RDW Plt Count MPV Neut # (Auto) Lymph # (Auto) [place] # (Auto) Eos # (Auto) Baso # (Auto) Absolute Nucleated RBC Nucleated RBC % Sodium Potassium Chloride Carbon Dioxide Anion Gap BUN Creatinine Estimated GFR (MDRD) Glucose Calcium Total Bilirubin AST ALT Alkaline Phosphatase Troponin I High Sens Total Protein Albumin Globulin Albumin/Globulin Ratio Lipase Ur Specific [place] 1.010 Urine HCG, Qual NEGATIVE Urine Opiates Screen NEGATIVE Ur Oxycodone Screen NEGATIVE Urine Methadone Screen NEGATIVE Ur Propoxyphene Screen NEGATIVE Ur Barbiturates Screen NEGATIVE Ur Tricyclics Screen NEGATIVE Ur Phencyclidine Scrn NEGATIVE Ur Amphetamine Screen POSITIVE H U Methamphetamines Scrn NEGATIVE U Benzodiazepines Scrn NEGATIVE Urine Cocaine Screen NEGATIVE U Cannabinoids Screen NEGATIVE Influenza A (Rapid) Negative Influenza B (Rapid) Negative - Rads (name of study) CTA chest Radiology: EMP read contemporaneously (neg except hepatic steatosis which the patient was already aware of) PD MEDICAL DECISION MAKING - ED course ED course: 29-year-old woman presents with 2 syncopal episodes today, she is tachycardic and borderline febrile with shortness of breath. Flu swab negative. CBC notable for leukopenia which could be consistent with COVID19, test is ordered but limitations including turnaround time are discussed with the patient and the need to self quarantine were discussed. No evidence of pneumonia on CT. PE also considered but CT negative for that too. After the administration of IV fluids she was not orthostatic, she had a repeat EKG which was without ischemic change given some new mild chest pain. Departure - Departure Disposition: 01 Home, Self Care Clinical Impression: Viral syndrome, Hepatic steatosis Syncope Qualifiers: Syncope type: unspecified Qualified Code(s): R55 - Syncope and collapse Condition: Good Record reviewed to determine appropriate education?: Yes Instructions: ED Fainting Unkn Cause Comments: Your work-up today is notable for some lymphopenia and low platelet count. This could be due to a viral syndrome. We have sent coronavirus testing but currently the turnaround time for that test is taking a long time so you need to self quarantine until you are completely better +24 hours. Return for new or worsening symptoms drink plenty of fluids. Continue current medications. Call your doctor to arrange a follow-up appointment, make the next available appointment. In the interim, return anytime if worse or if new symptoms develop.
[2020-02-11] MEDS ORDERED: IOVERSOL 320 100 ML VIAL IVP ONE ×2 (17:31→18:38)
[2020-02-11 17:33] LABS: BASOPHILS % (AUTO) 0.6 %; EOSINOPHILS % (AUTO) 0.6 %; HGB - HEMOGLOBIN 12.6 g/dL (12.0-16.0); LYMPHOCYTES # (AUTO) 0.7 10^3/uL (1.5-3.5); LYMPHOCYTES % (AUTO) 21.2 %; MEAN CORPUSCULAR HEMOGLOBIN 32.5 pg (27.0-31.0); MEAN CORPUSCULAR HGB CONC 33.5 g/dL (32.0-36.0); MEAN CORPUSCULAR VOLUME 96.9 fL (81.0-99.0); MEAN PLATELET VOLUME 9.9 fL (7.9-10.8); MONOCYTES # (AUTO) 0.4 10^3/uL (0.0-1.0); MONOCYTES % (AUTO) 12.5 %; NEUTROPHILS % (AUTO) 64.8 %; PLT - PLATELET COUNT 123 10^3/uL (130-450); RED BLOOD COUNT 3.88 10^6/uL (4.20-5.40); RED CELL DISTRIBUTION WIDTH 14.2 % (12.0-15.0); WHITE BLOOD COUNT 3.1 x10^3/uL (4.8-10.8)
[2020-02-11 17:49] LABS: ALBUMIN 4.3 g/dL (3.2-5.5); ALBUMIN/GLOBULIN RATIO 1.6 (1.0-2.2); BILIRUBIN,TOTAL 0.9 mg/dL (0.2-1.0); CALCIUM 8.5 mg/dL (8.5-10.3); CREATININE 0.4 mg/dL (0.4-1.0)
[2020-02-11 18:03] LABS: MUDS CUTOFF CONCENTRATIONS CUTOFF CONC BELOW:
[2020-02-11 18:11] LABS: HCG UR QUAL NEGATIVE
[2020-02-11 18:18] LABS: AMPHETAMINE SCREEN,URINE POSITIVE (NEGATIVE); BENZODIAZEPINES SCREEN, URINE NEGATIVE (NEGATIVE); COCAINE SCREEN URINE NEGATIVE (NEGATIVE); METHADONE SCREEN, URINE NEGATIVE (NEGATIVE); METHAMPHETAMINES SCREEN, URINE NEGATIVE (NEGATIVE); OPIATE SCREEN, URINE NEGATIVE (NEGATIVE); OXYCODONE SCREEN, URINE NEGATIVE (NEGATIVE); PROPOXYPHENE SCREEN, URINE NEGATIVE (NEGATIVE); TRICYCLIC ANTIDEPRESSANT,URINE NEGATIVE (NEGATIVE)
--- NOTE | 2020-02-11 19:07 | CT Report ---
Reason: syncope/dyspnea Procedure Date: 02/11/2020 Accession Number: [id number] / [id number] Procedure: CT - ANGIO CHEST W/WO CPT Code: Final Report FULL RESULT: EXAM: CT ANGIOGRAM CHEST EXAM DATE: 02/11/2020 06:37 PM. CLINICAL HISTORY: Syncope/dyspnea. COMPARISON: None. TECHNIQUE: Routine helical imaging was performed through the chest in the pulmonary arterial phase. IV Contrast: OPTIRAY 320. Reconstructions: Coronal 3-D MIP reconstructions. Sagittal and coronal. In accordance with CT protocol optimization, one or more of the following dose reduction techniques were utilized for this exam: automated exposure control, adjustment of mA and/or KV based on patient size, or use of iterative reconstructive technique. FINDINGS: Pulmonary Arteries: Diagnostic quality: Adequate through the mid segmental arteries. No evidence for acute or chronic pulmonary emboli. RV/LV is within normal limits. There is no interventricular septal bowing. There is no reflux of contrast material in the IVC. Lungs/Pleura: No consolidation, nodules, or edema. No effusions or pneumothorax. Mediastinum: Normal. No cardiac enlargement or adenopathy. Thoracic Aorta: Unremarkable. Upper Abdomen: There is severe hepatic steatosis. Other: None. IMPRESSION: 1. No evidence of acute pulmonary embolism. 2. No aortic dissection. 3. No consolidation or pneumothorax. 4. There is severe hepatic steatosis. RAD[facility]
[2020-02-11 19:50] VITALS: BP 146/96
== END 2020-02-11 20:10 | disposition home or self-care (01) ==
LOC: EDUNIT# → ED 17:17
DX: J06.9 Acute upper respiratory infection, unspecified (principal); R55 Syncope and collapse; K76.0 Fatty (change of) liver, not elsewhere classified
CPT/HCPCS: 36415; 71275; 80053; 80306; 81025; 81599; 83690; 84484; 85025; 87275; 87276; 93005; 99283; 99284; Q9967

== ENCOUNTER 2020-04-18 18:41 | Outpatient (CLI) | payer MEDICAID | END 2020-04-18 23:59 | disposition EMS.NT | LOC: EMS 18:41 | PROVIDERS: ATTEND Surgery | DX: R42 Dizziness and giddiness (principal); R07.9 Chest pain, unspecified; R03.0 Elevated blood-pressure reading, without diagnosis of hypertension ==

== ENCOUNTER 2020-04-20 11:06 | Emergency (ER) | payer MEDICAID ==
[2020-04-20 12:04] LABS: BASOPHILS # (AUTO) 0.1 10^3/uL (0.0-0.1); BASOPHILS % (AUTO) 0.7 %; EOSINOPHILS % (AUTO) 0.4 %; HGB - HEMOGLOBIN 14.6 g/dL (12.0-16.0); LYMPHOCYTES # (AUTO) 1.5 10^3/uL (1.5-3.5); LYMPHOCYTES % (AUTO) 18.8 %; MEAN CORPUSCULAR HGB CONC 34.9 g/dL (32.0-36.0); MEAN CORPUSCULAR VOLUME 97.2 fL (81.0-99.0); MEAN PLATELET VOLUME 10.4 fL (7.9-10.8); MONOCYTES # (AUTO) 0.6 10^3/uL (0.0-1.0); MONOCYTES % (AUTO) 7.8 %; NEUTROPHILS # (AUTO) 5.9 10^3/uL (1.5-6.6); NEUTROPHILS % (AUTO) 71.9 %; PLT - PLATELET COUNT 269 10^3/uL (130-450); RED CELL DISTRIBUTION WIDTH 11.2 % (12.0-15.0); WHITE BLOOD COUNT 8.2 x10^3/uL (4.8-10.8)
[2020-04-20 12:12] LABS: ACETAMINOPHEN < 10 ug/mL (10-30); ALBUMIN 4.4 g/dL (3.2-5.5); ALBUMIN/GLOBULIN RATIO 1.3 (1.0-2.2); ALKALINE PHOSPHATASE 86 IU/L (42-121); ALT ALANINE AMINOTRANSFERASE 98 IU/L (10-60); AST ASPARTATE AMINOTRANSFERASE 95 IU/L (10-42); BILIRUBIN,TOTAL 0.6 mg/dL (0.2-1.0); BUN - BLOOD UREA NITROGEN 13 mg/dL (6-20); CALCIUM 9.6 mg/dL (8.5-10.3); CARBON DIOXIDE - CO2 24 mmol/L (21-32); CHLORIDE 98 mmol/L (101-111); CREATININE 0.6 mg/dL (0.4-1.0); GLUCOSE 100 mg/dL (70-100); LIPASE 24 U/L (22-51); MAGNESIUM 1.9 mg/dL (1.7-2.8); SALICYLATE < 6.0 mg/dL; SODIUM 135 mmol/L (135-145); TOTAL PROTEIN 7.8 g/dL (6.7-8.2)
[2020-04-20 12:31] LABS: MUDS CUTOFF CONCENTRATIONS CUTOFF CONC BELOW:
[2020-04-20 12:35] LABS: BILIRUBIN,URINE NEGATIVE (NEGATIVE); GLUCOSE, URINE (UA) NEGATIVE (NEGATIVE); KETONES,URINE (UA) TRACE mg/dL (NEGATIVE); LEUKOCYTE ESTERASE, URINE NEGATIVE (NEGATIVE); NITRITE,URINE NEGATIVE (NEGATIVE); OCCULT BLOOD,URINE NEGATIVE (NEGATIVE); PH,URINE >=9.0 PH (5.0-7.5); PROTEIN,URINE NEGATIVE (NEGATIVE); UROBILINOGEN,URINE 0.2 (NORMAL) E.U./dL (NORMAL)
[2020-04-20 12:40] LABS: CLARITY,URINE CLEAR (CLEAR)
[2020-04-20 12:44] LABS: AMPHETAMINE SCREEN,URINE POSITIVE (NEGATIVE)
[2020-04-20 12:45] LABS: BENZODIAZEPINES SCREEN, URINE NEGATIVE (NEGATIVE); COCAINE SCREEN URINE NEGATIVE (NEGATIVE); METHADONE SCREEN, URINE NEGATIVE (NEGATIVE); METHAMPHETAMINES SCREEN, URINE NEGATIVE (NEGATIVE); OPIATE SCREEN, URINE NEGATIVE (NEGATIVE); OXYCODONE SCREEN, URINE NEGATIVE (NEGATIVE); PROPOXYPHENE SCREEN, URINE NEGATIVE (NEGATIVE); TRICYCLIC ANTIDEPRESSANT,URINE NEGATIVE (NEGATIVE)
--- NOTE | 2020-04-20 12:47 | XRAY Report ---
Reason: soa Procedure Date: 04/20/2020 Accession Number: [id number] / [id number] Procedure: XR - Chest 1 View X-Ray CPT Code: 24174 Final Report FULL RESULT: EXAM: CHEST RADIOGRAPHY EXAM DATE: 04/20/2020 12:06 PM. CLINICAL HISTORY: Shortness of breath COMPARISON: CHEST 2 VIEW 11/04/2019 6:37 AM. TECHNIQUE: 1 view. FINDINGS: Lungs/Pleura: No focal opacities evident. No pleural effusion. No pneumothorax. Mediastinum: Within exam limitations, the cardiomediastinal contour is normal. Other: None. IMPRESSION: Negative for active cardiopulmonary process. RADIA
[2020-04-20] MEDS ORDERED: POTASSIUM CHLORIDE 20 MEQ TABLET PO STA (13:42)
--- NOTE | 2020-04-20 14:30 | ED Physician Documentation ---
History of Present Illness - Stated complaint Stated Complaint: SOA/CHEST PX - Chief complaint Chief Complaint: Neuro - History obtained from History obtained from: Patient, Family, EMS - History of Present Illness Timing: Today - Additonal information Additional information: 29-year-old female with Ross has developed episodes of weakness and jitteriness that she will have for a day at a time and today she was having a bad day developed some shaking some numbness around her lips fingertips and toes and she became unable to move her extremities. She called the ambulance was transported to the hospital with some shaking she was conscious the entire time. She has a prior history of a seizure disorder. She does not feel that this was a seizure she was conscious the entire time. She did not note rapid breathing but does state that she has been having some dyspnea. She has been told that she has a 10% function of her liver left and she has an appointment to be seen at the [facility] which has been canceled a number of times. She has a 8-month-old and a 3-year-old child at home. Review of Systems Constitutional: reports: Fatigue. denies: Fever, Chills Ears: denies: Ear pain Nose: denies: Congestion Throat: denies: Sore throat Cardiac: reports: Chest pain / pressure, Palpitations Respiratory: reports: Dyspnea GI: denies: Nausea, Vomiting : denies: Dysuria Skin: denies: Rash PD PAST MEDICAL HISTORY - Past Medical History GI: Diverticulitis Psych: Other - Past Surgical History Past Surgical History: Yes HEENT: Tonsil/Adenoidectomy - Present Medications Home Medications: Ambulatory Orders Medication Instructions Recorded Confirmed No Known Home Medications 04/20/20 04/20/20 - Allergies Allergies/Adverse Reactions: Allergies Allergy/AdvReac Type Severity Reaction Status Date / Time Sulfa (Sulfonamide Allergy Unknown Unknown Verified 04/20/20 11:26 Antibiotics) codeine AdvReac Nausea Verified 04/20/20 11:26 - Social History Does the pt smoke?: No Smoking Status: Never smoker Does the pt drink ETOH?: No Does the pt have substance abuse?: No - Immunizations Immunizations are current?: Yes - POLST Patient has POLST: No PD ED PE NORMAL - Vitals Vital signs reviewed: Yes (tachycardic and hypertensive ) - General General: Alert and oriented X 3, No acute distress, Well developed/nourished - HEENT HEENT: Atraumatic, PERRL, EOMI, Ears normal, Moist mucous membranes, Pharynx benign, Dentition benign - Neck Neck: Supple, no meningeal sign, No bony TTP - Cardiac Cardiac: RRR, No murmur - Respiratory Respiratory: No respiratory distress, Clear bilaterally - Abdomen Abdomen: Normal bowel sounds, Soft, Non distended, No organomegaly, Other (mild LUQ tenderness without garding. ) - Back Back: No CVA TTP, No spinal TTP - Derm Derm: Normal color, Warm and dry, No rash - Extremities Extremities: No deformity, No tenderness to palpate, Normal ROM s pain, No edema, No calf tenderness / cord - Neuro Neuro: Alert and oriented X 3, gliding pilot instructor 2-12 intact, No motor deficit, No sensory deficit, Normal speech Eye Opening: Spontaneous Motor: Obeys Commands Verbal: Oriented GCS Score: 15 - Psych Psych: Normal mood, Normal affect Results - Vitals Vitals: Vital Signs - 24 hr 04/20/20 04/20/20 04/20/20 11:10 11:26 11:39 Temperature 37.4 C Heart Rate 121 H 110 H 104 H Respiratory 18 20 Rate Blood Pressure 116/115 H 154/101 H 146/97 H O2 Saturation 99 96 04/20/20 04/20/20 04/20/20 12:38 13:00 13:30 Temperature Heart Rate 101 H 96 92 Respiratory 17 14 20 Rate Blood Pressure 137/93 H 140/95 H 139/94 H O2 Saturation 96 99 95 04/20/20 04/20/20 04/20/20 14:00 14:30 15:00 Temperature Heart Rate 98 88 95 Respiratory 18 18 16 Rate Blood Pressure 142/98 H 144/96 H 139/103 H O2 Saturation 96 97 96 Oxygen O2 Source Room air - EKG (time done) 1111 Rate: Rate (enter#) (105) Rhythm: Sinus tachycardia Ischemia: Normal ST segments Compare to prior EKG: Unchanged from prior EKG (SPT 02-11-2020 no changes) Computer interpretation: Agree with computer - Labs Labs: Laboratory Tests 04/20/20 04/20/20 04/20/20 11:12 11:12 11:12 WBC 8.2 RBC 4.30 Hgb 14.6 Hct 41.8 MCV 97.2 MCH 34.0 H MCHC 34.9 RDW 11.2 L Plt Count 269 MPV 10.4 Neut # (Auto) 5.9 Lymph # (Auto) 1.5 [place] # (Auto) 0.6 Eos # (Auto) 0.0 Baso # (Auto) 0.1 Absolute Nucleated RBC 0.00 Nucleated RBC % 0.0 Sodium 135 Potassium 3.3 L Chloride 98 L Carbon Dioxide 24 Anion Gap 13.0 BUN 13 Creatinine 0.6 Estimated GFR (MDRD) 117 Glucose 100 Lactic Acid Calcium 9.6 Magnesium 1.9 Total Bilirubin 0.6 AST 95 H ALT 98 H Alkaline Phosphatase 86 Total Protein 7.8 Albumin 4.4 Globulin 3.4 Albumin/Globulin Ratio 1.3 Lipase 24 TSH 1.10 HCG, Quant Urine Color Urine Clarity Urine pH Ur Specific [place] Urine Protein Urine Glucose (UA) Urine Ketones Urine Occult Blood Urine Nitrite Urine Bilirubin Urine Urobilinogen Ur Leukocyte Esterase Ur Microscopic Review Urine Culture Comments Salicylates < 6.0 Urine Opiates Screen Ur Oxycodone Screen Urine Methadone Screen Ur Propoxyphene Screen Acetaminophen < 10 L Ur Barbiturates Screen Ur Tricyclics Screen Ur Phencyclidine Scrn Ur Amphetamine Screen U Methamphetamines Scrn U Benzodiazepines Scrn Urine Cocaine Screen U Cannabinoids Screen Ethyl Alcohol < 5.0 04/20/20 04/20/20 04/20/20 11:12 12:06 12:23 WBC RBC Hgb Hct MCV MCH MCHC RDW Plt Count MPV Neut # (Auto) Lymph # (Auto) [place] # (Auto) Eos # (Auto) Baso # (Auto) Absolute Nucleated RBC Nucleated RBC % Sodium Potassium Chloride Carbon Dioxide Anion Gap BUN Creatinine Estimated GFR (MDRD) Glucose Lactic Acid 1.1 Calcium Magnesium Total Bilirubin AST ALT Alkaline Phosphatase Total Protein Albumin Globulin Albumin/Globulin Ratio Lipase TSH HCG, Quant < 0.60 Urine Color YELLOW Urine Clarity CLEAR Urine pH >=9.0 H Ur Specific [place] 1.010 Urine Protein NEGATIVE Urine Glucose (UA) NEGATIVE Urine Ketones TRACE Urine Occult Blood NEGATIVE Urine Nitrite NEGATIVE Urine Bilirubin NEGATIVE Urine Urobilinogen 0.2 (NORMAL) Ur Leukocyte Esterase NEGATIVE Ur Microscopic Review NOT INDICATED Urine Culture Comments NOT INDICATED Salicylates Urine Opiates Screen NEGATIVE Ur Oxycodone Screen NEGATIVE Urine Methadone Screen NEGATIVE Ur Propoxyphene Screen NEGATIVE Acetaminophen Ur Barbiturates Screen NEGATIVE Ur Tricyclics Screen NEGATIVE Ur Phencyclidine Scrn NEGATIVE Ur Amphetamine Screen POSITIVE H U Methamphetamines Scrn NEGATIVE U Benzodiazepines Scrn NEGATIVE Urine Cocaine Screen NEGATIVE U Cannabinoids Screen NEGATIVE Ethyl Alcohol - Rads (name of study) Chest Radiology: Prelim report reviewed (Impression negative for active cardiopulmonary process.), EMP read indepedently, See rad report Procedures - IVC sono (time) 1125 Bedside IVC sono: IVC measures (cm) (1.49), Euvolemia PD MEDICAL DECISION MAKING - ED course Complexity details: reviewed old records, reviewed results, re-evaluated patient, considered differential, d/w patient, d/w family ED course: 29-year-old female with acute lip numbness fingertip numbness leg numbness and inability to move likely had this resulted as a panic attack or hyperventilation syndrome.Her work-up today is unremarkable. When I have gone into the patient's room with her mother present and described the reaction the patient was having as a panic attack or hyperventilation syndrome the mother became concerned and that she suspects there is something different going on and the patient herself wants to go home. When I confronted her with the amphetamine in her urine her heart rate jumped from 97 to 140. She indicated that she does not take that medicine anymore and has not taken it for 3 years. She does have a history of cataplexy and narcolepsy. She denies any current use of amphetamine. When I offered Ativan to the patient her mother insisted that this was a medication easy to get addicted to and the patient refused. Departure - Departure Disposition: 01 Home, Self Care Clinical Impression: Hyperventilation syndrome Condition: Stable Instructions: ED Hyperventilation Syndrome Follow-Up: Your, doctor [Other] Comments: Today your dramatic presentation is consistent with a hyperventilation attack. This is usually related to anxiety. Follow-up with your primary care doctor and discuss alternative forms of treatment for anxiety. Follow-up with your hepatic team as planned on April 28. Discharge Date/Time: 04/20/20 15:11
[2020-04-20 19:45] VITALS: BP 139/103
== END 2020-04-20 15:11 | disposition home or self-care (01) ==
LOC: ED 11:06
DX: F45.8 Other somatoform disorders (principal); R00.0 Tachycardia, unspecified
CPT/HCPCS: 36415; 71045; 80053; 80306; 80307; 80320; 80329; 81003; 83605; 83690; 83735; 84443; 84702; 85025; 93005; 99284; A9270; 81001; 87086

== ENCOUNTER 2021-07-06 06:59 | Emergency (ER) | payer MEDICAID ==
[2021-07-06 07:32] VITALS: BP 101/64
--- NOTE | 2021-07-06 08:39 | XRAY Report ---
PROCEDURE: Tib/Fib LT INDICATIONS: foot twist pain up fibula TECHNIQUE: 2 views of the tibia and fibula were acquired. COMPARISON: None FINDINGS: Bones: No fractures or dislocations. No suspicious bony lesions. Soft tissues: No suspicious soft tissue calcifications or masses. IMPRESSION: Unremarkable tibia and fibular radiographs Reviewed by: Curtis Calixto MD on 07/06/2021 7:38 AM MALIA Approved by: Curtis Calixto MD on 07/06/2021 7:38 AM AKSAVANAH Station ID: [id number]
--- NOTE | 2021-07-06 08:41 | XRAY Report ---
PROCEDURE: Foot 3 View LT INDICATIONS: twist inversion injury, pain to dorsum middle TECHNIQUE: 3 views of the foot were acquired. COMPARISON: None FINDINGS: Bones: No fractures or dislocations. No suspicious bony lesions. Soft tissues: No tibiotalar joint effusion. Achilles tendon appears normal. IMPRESSION: Unremarkable left foot radiographs Reviewed by: Curtis Calixto MD on 07/06/2021 7:40 AM MALIA Approved by: Curtis Calixto MD on 07/06/2021 7:40 AM MALIA Station ID: [id number]
--- NOTE | 2021-07-06 08:46 | ED Physician Documentation ---
PD HPI LOWER EXT INJURY - Stated complaint Stated Complaint: LT ANKLE/FOOT INJURY - Chief complaint Chief Complaint: Ext Problem - History obtained from History obtained from: Patient, Family - History of Present Illness PD HPI LOW EXT INJURY LOCATION: Left, Lower leg, Foot Type of injury: Fall, Twist Where injury occurred: Home Timing - onset: How many days ago (2) Timing - duration: Days (2) Timing - details: Abrupt onset, Still present Improved by: Rest Worsened by: Moving, Palpating Associated symptoms: No: Weakness, Numbness, Tingling, Swelling Contributing factors: No: Anticoagulated Similar symptoms before: Has not had sx before Recently seen: Not recently seen - Additional information Additional information: Please well 30-year-old female has had a twisting injury to her left leg. She was wearing flip-flops caught on the ground and her foot was inverted and she fell forward. She has pain from the dorsum of the foot all the way up to the lateral aspect of the knee. She has pain along the fibula and over the dorsum of the foot. Review of Systems Constitutional: denies: Fever Respiratory: denies: Cough GI: denies: Vomiting, Diarrhea PD PAST MEDICAL HISTORY - Past Medical History Cardiovascular: None Respiratory: None Neuro: Seizure disorder Endocrine/Autoimmune: None GI: Cirrhosis, Diverticulitis EMS EDUCATOR: None : None HEENT: None Psych: Anxiety, Other Musculoskeletal: None Derm: None - Past Surgical History Past Surgical History: Yes HEENT: Tonsil/Adenoidectomy - Present Medications Home Medications: Ambulatory Orders Medication Instructions Recorded Confirmed Gabapentin [Neurontin] 300 mg PO BID 07/06/21 07/06/21 Ondansetron Odt [Zofran Odt] 4 mg TL Q6H PRN 07/06/21 07/06/21 Promethazine [Phenergan] 12.5 mg PO Q6H PRN 07/06/21 07/06/21 hydrOXYzine pamoate [Vistaril] 50 mg PO Q6H PRN 07/06/21 07/06/21 traZODone [Desyrel] 50 mg PO HS 07/06/21 07/06/21 - Allergies Allergies/Adverse Reactions: Allergies Allergy/AdvReac Type Severity Reaction Status Date / Time Sulfa (Sulfonamide Allergy Unknown Anaphylaxis Verified 07/06/21 07:36 Antibiotics) adhesive tape AdvReac Unknown Rash Verified 07/06/21 07:36 codeine AdvReac Unknown Nausea Verified 07/06/21 07:36 - Social History Does the pt smoke?: No Smoking Status: Never smoker Does the pt drink ETOH?: Yes Does the pt have substance abuse?: No - Immunizations Immunizations are current?: Yes - POLST Patient has POLST: No PD ED PE NORMAL - Vitals Vital signs reviewed: Yes (Tachycardic) - General General: Alert and oriented X 3, No acute distress, Well developed/nourished - HEENT HEENT: Atraumatic, PERRL, EOMI - Respiratory Respiratory: No respiratory distress - Derm Derm: Normal color, Warm and dry, No rash - Extremities Extremities: No deformity, No edema, Other (Tenderness to the dorsum of the left foot over the midshaft of #2 and 3. There is tenderness along the fibula as well along the entire shaft. There is no mass no crepitance and no deformity) - Neuro Neuro: Alert and oriented X 3, helper steel fabrication 2-12 intact, No motor deficit, No sensory deficit, Normal speech Eye Opening: Spontaneous Motor: Obeys Commands Verbal: Oriented GCS Score: 15 - Psych Psych: Normal mood, Normal affect Results - Vitals Vitals: Vital Signs - 24 hr 07/06/21 07:29 Temperature 37.1 C Heart Rate 105 H Respiratory 18 Rate Blood Pressure 101/64 O2 Saturation 100 Oxygen O2 Source Room air - Rads (name of study) foot Radiology: Prelim report reviewed (Impression: Unremarkable left foot radiographs.), EMP read indepedently, See rad report Left tib-fib Radiology: Prelim report reviewed (Impression: Unremarkable tibia and fibular radiographs.), EMP read indepedently, See rad report Procedures - Splint (location) Left LE Splint applied by: Tech Type of splint: Fiberglass, Posterior Other: Patient tolerated well, No complications, Neurovascular intact, Good alignment, Crutches provided PD MEDICAL DECISION MAKING - ED course Complexity details: reviewed results, considered differential, d/w patient, d/w family ED course: 30-year-old female has twisted her left leg with injury to her foot extending up the lateral aspect of her calf. She is placed into a posterior splint and onto crutches. There is no evidence of a fracture. Departure - Departure Disposition: Home, Self Care Clinical Impression: Sprain and strain of left ankle Sprain of foot Qualifiers: Encounter type: initial encounter Laterality: left Qualified Code(s): S93.602A - Unspecified sprain of left foot, initial encounter Condition: Stable Instructions: ED Sprain Foot, ED Sprain Ankle Follow-Up: [facility] [Provider Group] Discharge Date/Time: 07/06/21 09:20
== END 2021-07-06 09:20 | disposition home or self-care (01) ==
LOC: ED 06:59
DX: G40.909 Epilepsy, unspecified, not intractable, without status epilepticus (principal); F41.9 Anxiety disorder, unspecified; S93.402A Sprain of unspecified ligament of left ankle, initial encounter; X50.1XXA Overexertion from prolonged static or awkward postures, initial encounter; Y92.009 Unspecified place in unspecified non-institutional (private) residence as the place of occurrence of the external cause
CPT/HCPCS: 29515; 99282

== ENCOUNTER 2021-08-29 17:49 | Emergency (ER) | payer MEDICAID ==
[2021-08-29 18:35] LABS: BASOPHILS % (AUTO) 0.7 %; EOSINOPHILS # (AUTO) 0.1 10^3/uL (0.0-0.7); EOSINOPHILS % (AUTO) 3.1 %; HCT - HEMATOCRIT 39.7 % (37.0-47.0); HGB - HEMOGLOBIN 13.2 g/dL (12.0-16.0); LYMPHOCYTES # (AUTO) 0.9 10^3/uL (1.5-3.5); LYMPHOCYTES % (AUTO) 22.2 %; MEAN CORPUSCULAR HEMOGLOBIN 31.2 pg (27.0-31.0); MEAN CORPUSCULAR HGB CONC 33.2 g/dL (32.0-36.0); MEAN CORPUSCULAR VOLUME 93.9 fL (81.0-99.0); MEAN PLATELET VOLUME 10.5 fL (7.9-10.8); MONOCYTES # (AUTO) 0.4 10^3/uL (0.0-1.0); MONOCYTES % (AUTO) 10.6 %; NEUTROPHILS # (AUTO) 2.6 10^3/uL (1.5-6.6); NEUTROPHILS % (AUTO) 62.9 %; PLT - PLATELET COUNT 115 10^3/uL (130-450); RED BLOOD COUNT 4.23 10^6/uL (4.20-5.40); RED CELL DISTRIBUTION WIDTH 13.3 % (12.0-15.0); WHITE BLOOD COUNT 4.1 x10^3/uL (4.8-10.8)
[2021-08-29] MEDS ORDERED: SODIUM CHLORIDE 0.9% 1,000 ML IV STA ×3 (18:37→20:48)
[2021-08-29] MEDS ORDERED: ONDANSETRON 4 MG/2 ML VIAL IVP STA (18:37)
[2021-08-29] MEDS ORDERED: ONDANSETRON 4 MG/2 ML VIAL ONE (18:38)
[2021-08-29 18:55] LABS: ALBUMIN/GLOBULIN RATIO 1.3 (1.0-2.2); BILIRUBIN,TOTAL 2.2 mg/dL (0.2-1.0); CALCIUM 9.3 mg/dL (8.5-10.3); CREATININE 0.5 mg/dL (0.4-1.0); POTASSIUM 3.7 mmol/L (3.5-5.0); TOTAL PROTEIN 8.8 g/dL (6.7-8.2)
--- NOTE | 2021-08-29 18:59 | ED Physician Documentation ---
PD HPI NVD - Stated complaint Stated Complaint: VOMITING BLOOD - Chief complaint Chief Complaint: Abd Pain - History obtained from History obtained from: Patient - History of Present Illness Timing - onset: Today Timing - duration: Days (1) Timing - details: Abrupt onset, Still present Associated symptoms: Abdominal pain (upper to mid abd cramping during the day.), Hematemesis (dark blood to coffee ground. No BRB. Also has had diarrhea several times today without noted blood/melena.), Loss of appetite. No: Fever Contributing factors: No: Sick contact, Bad food, Travel, Alcohol use Similar symptoms before: Has not had sx before Recently seen: Not recently seen (reports she had been doing okay recent with stomach/liver. Stable LFTs. Had EGD about a year ago without ulcers and she did not recognized the term varices. Her GI is at , but also has had some testing at [facility].) Review of Systems Constitutional: reports: Myalgias. denies: Fever, Chills Nose: denies: Rhinorrhea / runny nose, Congestion Throat: reports: Sore throat Respiratory: reports: Cough (today) GI: reports: Nausea, Vomiting (multiple times today), Diarrhea (multiple episodes today, watery), Hematemesis (coffee ground to dark purple. No bright red per patient.). denies: Abdominal Pain, Bloody / black stool Musculoskeletal: denies: Neck pain, Back pain Neurologic: reports: Generalized weakness. 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 Elevated LFTs. No prior gallbladder nor pancreatic problems. Last EGD about a years ago, per patient. Does not recognize the term varices.) [employer]ANT [employer] SERVICES: None : None HEENT: None Psych: Anxiety, Other Musculoskeletal: None Derm: None - Past Surgical History Past Surgical History: Yes HEENT: Tonsil/Adenoidectomy - Present Medications Home Medications: Ambulatory Orders Medication Instructions Recorded Confirmed Gabapentin [Neurontin] 300 mg PO BID 07/06/21 07/06/21 Ondansetron Odt [Zofran Odt] 4 mg TL Q6H PRN 07/06/21 07/06/21 Promethazine [Phenergan] 12.5 mg PO Q6H PRN 07/06/21 07/06/21 hydrOXYzine pamoate [Vistaril] 50 mg PO Q6H PRN 07/06/21 07/06/21 traZODone [Desyrel] 50 mg PO HS 07/06/21 07/06/21 Famotidine [Pepcid] 20 mg PO DAILY #20 tablet 08/30/21 Metoclopramide HCl [Metoclopramide 10 mg PO Q6H PRN #15 tab 08/30/21 HCl Odt] - Allergies Allergies/Adverse Reactions: Allergies Allergy/AdvReac Type Severity Reaction Status Date / Time Sulfa (Sulfonamide Allergy Unknown Anaphylaxis Verified 08/29/21 18:25 Antibiotics) adhesive tape AdvReac Unknown Rash Verified 08/29/21 18:25 codeine AdvReac Unknown Nausea Verified 08/29/21 18:25 - Living Situation Living Situation: reports: With family Living Arrangement: reports: At home - Social History Does the pt smoke?: No Smoking Status: Never smoker Does the pt drink ETOH?: Yes ETOH Use: Other (occasional, denies daily/heavy.) Does the pt have substance abuse?: No - Immunizations Immunizations are current?: Yes - POLST Patient has POLST: No PD ED PE NORMAL - Vitals Vital signs reviewed: Yes - General General: Alert and oriented X 3, Well developed/nourished, Other (appears in discomfort, somewhat pale, holding emesis bag and there is about 10-15 ml of coffee ground and purple colored blood in bag. Dry heaving during exam. ) - Neck Neck: Supple, no meningeal sign, No adenopathy - Cardiac Cardiac: No murmur. No: RRR (regular but tachycardic) - Respiratory Respiratory: Clear bilaterally - Abdomen Abdomen: Non distended, Other (liver enlargement to palpation. Very tender RUQ (I did minimal exam RUQ at patient request). LUQ tender with some guarding. No masses. Lower abd not tender. ). No: Normal bowel sounds (diminished) - Female Female : Deferred - Rectal Rectal: Deferred - Back Back: No CVA TTP - Derm Derm: Normal color, Warm and dry - Neuro Neuro: Alert and oriented X 3, No motor deficit, Normal speech Results - Vitals Vitals: Vital Signs - 24 hr 08/29/21 08/29/21 08/29/21 18:14 19:42 21:14 Temperature 37.8 C Heart Rate 132 H 110 H 115 H Respiratory 22 18 Rate Blood Pressure 148/74 H 133/73 H 138/78 H O2 Saturation 98 08/29/21 08/30/21 22:06 00:00 Temperature Heart Rate 108 H 107 H Respiratory 17 Rate Blood Pressure 137/78 H 120/65 O2 Saturation 100 Oxygen O2 Source Room air - Labs Labs: Laboratory Tests 08/29/21 08/29/21 08/29/21 18:29 18:29 18:29 WBC 4.1 L RBC 4.23 Hgb 13.2 Hct 39.7 MCV 93.9 MCH 31.2 H MCHC 33.2 RDW 13.3 Plt Count 115 L MPV 10.5 Neut # (Auto) 2.6 Lymph # (Auto) 0.9 L [place] # (Auto) 0.4 Eos # (Auto) 0.1 Baso # (Auto) 0.0 Absolute Nucleated RBC 0.00 Nucleated RBC % 0.0 Sodium 144 Potassium 3.7 Chloride 104 Carbon Dioxide 20 L Anion Gap 20.0 H BUN 10 Creatinine 0.5 Estimated GFR (MDRD) 142 Glucose 95 Calcium 9.3 Total Bilirubin 2.2 H AST 125 H ALT 45 Alkaline Phosphatase 149 H Total Protein 8.8 H Albumin 5.0 Globulin 3.8 Albumin/Globulin Ratio 1.3 Lipase 32 Serum HCG, Qual NEGATIVE Urine Color Urine Clarity Urine pH Ur Specific [place] Urine Protein Urine Glucose (UA) Urine Ketones Urine Occult Blood Urine Nitrite Urine Bilirubin Urine Urobilinogen Ur Leukocyte Esterase Urine RBC Urine WBC Ur Squamous Epith Cells Urine Bacteria Urine Mucus Ur Microscopic Review Urine Culture Comments Nasal Adenovirus (PCR) Nasal B. parapertussis DNA (PCR) Nasal Coronavir 229E PCR Nasal Coronavir HKU1 PCR Nasal Coronavir NL63 PCR Nasal Coronavir OC43 PCR Nasal Enterovir/Rhinovir PCR Nasal Influenza B PCR Nasal Influenza A PCR Nasal Parainfluen 1 PCR Nasal Parainfluen 2 PCR Nasal Parainfluen 3 PCR Nasal Parainfluen 4 PCR Nasal RSV (PCR) Nasal B.pertussis DNA PCR Nasal C.pneumoniae (PCR) Hitesh Human Metapneumo PCR Nasal M.pneumoniae (PCR) Nasal SARS-CoV-2 (PCR) 08/29/21 08/29/21 20:21 21:05 WBC RBC Hgb Hct MCV MCH MCHC RDW Plt Count MPV Neut # (Auto) Lymph # (Auto) [place] # (Auto) Eos # (Auto) Baso # (Auto) Absolute Nucleated RBC Nucleated RBC % Sodium Potassium Chloride Carbon Dioxide Anion Gap BUN Creatinine Estimated GFR (MDRD) Glucose Calcium Total Bilirubin AST ALT Alkaline Phosphatase Total Protein Albumin Globulin Albumin/Globulin Ratio Lipase Serum HCG, Qual Urine Color YELLOW Urine Clarity CLEAR Urine pH 6.0 Ur Specific [place] 1.025 Urine Protein TRACE Urine Glucose (UA) NEGATIVE Urine Ketones >=80 H Urine Occult Blood SMALL H Urine Nitrite NEGATIVE Urine Bilirubin NEGATIVE Urine Urobilinogen 0.2 (NORMAL) Ur Leukocyte Esterase NEGATIVE Urine RBC 6-10 H Urine WBC 0-3 Ur Squamous Epith Cells FEW Squamous Urine Bacteria Rare Urine Mucus Few Strands Ur Microscopic Review INDICATED Urine Culture Comments NOT INDICATED Nasal Adenovirus (PCR) NOT DETECTED Nasal B. parapertussis DNA (PCR) NOT DETECTED Nasal Coronavir 229E PCR NOT DETECTED Nasal Coronavir HKU1 PCR NOT DETECTED Nasal Coronavir NL63 PCR NOT DETECTED Nasal Coronavir OC43 PCR NOT DETECTED Nasal Enterovir/Rhinovir PCR NOT DETECTED Nasal Influenza B PCR NOT DETECTED Nasal Influenza A PCR NOT DETECTED Nasal Parainfluen 1 PCR NOT DETECTED Nasal Parainfluen 2 PCR NOT DETECTED Nasal Parainfluen 3 PCR NOT DETECTED Nasal Parainfluen 4 PCR NOT DETECTED Nasal RSV (PCR) NOT DETECTED Nasal B.pertussis DNA PCR NOT DETECTED Nasal C.pneumoniae (PCR) NOT DETECTED Hitesh Human Metapneumo PCR NOT DETECTED Nasal M.pneumoniae (PCR) NOT DETECTED Nasal SARS-CoV-2 (PCR) NOT DETECTED PD MEDICAL DECISION MAKING - ED course Complexity details: reviewed results, re-evaluated patient (several doses of antiemetics for improvement to stop vomiting in ER. ), considered differential, d/w patient ED course: evaluated and treated over several hours with fluids and antiemetics, some pain meds. She did have repeated vomiting after first doses of antiemetics. Further meds stopped the vomiting but remained nauseated. Her emeses in ER showed coffee ground to dark purple 5-10 ml volume or so. Evaluation with blood count and CT scan showed good H/H and CT did not show any signs of perforations/free fluid, no noted varices. Comment about likely portal HTN due to varicosities on the abd wall. With this, I felt the patient was not having variceal bleeding, and is safe being treated here. Concern certainly for gastritis/GI bleeding, even though the initiating process sounds likely viral GE or food related. She had 4 antiemetics dosings over several hours and still nauseated. I felt this met intractable criteria and compounded with concern of gastritis/bleeding, I felt pt less likely to return to good PO intake promptly. I talked with Hospitalist Dr. Sotelo about potential OBS with intractable nausea/vomiting and upper GI bleeding. He however did not feel the patient met criteria for hospitalization. Pt keeping down sips of water/ pennie kristina, though with nausea increased subsequent. Pt and mom willing to try going home. Encouraged to return if worse again. Departure - Departure Disposition: Home, Self Care Clinical Impression: Nausea vomiting and diarrhea Hematemesis Qualifiers: Nausea presence: with nausea Qualified Code(s): K92.0 - Hematemesis Acute gastritis Qualifiers: Gastritis type: unspecified gastritis Gastritis bleeding: with bleeding Qualified Code(s): K29.01 - Acute gastritis with bleeding Condition: Stable Record reviewed to determine appropriate education?: Yes Instructions: ED Bleed UGI Stable Prescriptions: Metoclopramide HCl [Metoclopramide HCl Odt] 10 mg PO Q6H PRN #15 tab PRN Reason: Nausea / Vomiting Famotidine [Pepcid] 20 mg PO DAILY #20 tablet Comments: Your blood count and vital signs are good so does not appear to be an excessive amount of bleeding. I understand you are still feeling not well and nauseous but not continuing to vomit. With these above findings, are hospitalist did not feel that you fit criteria for admission at this time. Your symptoms sound likely to be stomach and intestinal virus given the nausea vomiting and diarrhea. Obviously the stomach is irritated with the bleeding as well. Small frequent fluids and bland food for the next few days. Use your ondansetron at home if needed for nausea or alternatively metoclopramide dissolving tablet as well. Famotidine acid reducing medicine twice daily for the next several days and then once daily for another week or 2. I transmitted the scripts to [facility] pharmacy. You would anticipate some dark stool over the next day or 2 as bleeding from the stomach transits out through the intestine. It should clear after couple of days. Recheck if not improved well over the next day or 2 and return sooner if worse again. Discharge Date/Time: 08/30/21 00:26
[2021-08-29] MEDS ORDERED: HYDROmorphone 1 MG/ML CARPUJECT IVP STA (19:10)
[2021-08-29] MEDS ORDERED: FAMOTIDINE 20 MG/2 ML VIAL IVP STA (19:10)
[2021-08-29] MEDS ORDERED: DROPERIDOL 5 MG/2 ML VIAL IVP STA ×2 (19:10→20:03)
[2021-08-29] MEDS ORDERED: diphenhydrAMINE INJ 50 MG/ML VIAL IVP STA (20:03)
[2021-08-29 20:34] LABS: HCG,QUALITATIVE BLOOD NEGATIVE
[2021-08-29] MEDS ORDERED: IOVERSOL 320 100 ML VIAL IVP ONE ×2 (21:17→21:25)
[2021-08-29 21:25] LABS: BILIRUBIN,URINE NEGATIVE (NEGATIVE); GLUCOSE, URINE (UA) NEGATIVE (NEGATIVE); KETONES,URINE (UA) >=80 mg/dL (NEGATIVE); LEUKOCYTE ESTERASE, URINE NEGATIVE (NEGATIVE); NITRITE,URINE NEGATIVE (NEGATIVE); OCCULT BLOOD,URINE SMALL (NEGATIVE); PROTEIN,URINE TRACE mg/dL (NEGATIVE); UROBILINOGEN,URINE 0.2 (NORMAL) E.U./dL (NORMAL)
[2021-08-29 21:29] LABS: B. PARAPERTUSSIS- RESP PCR PAN NOT DETECTED; B. PERTUSSIS- RESP PCR PANEL NOT DETECTED; C. PNEUMONIAE- RESP PCR PANEL NOT DETECTED; CORONAVIRUS 229E-RESP PCR NOT DETECTED; CORONAVIRUS HKU1-RESP PCR NOT DETECTED; CORONAVIRUS NL63-RESP PCR NOT DETECTED; CORONAVIRUS OC43-RESP PCR NOT DETECTED; HUMAN METAPNEUMOVIRUS NOT DETECTED; INFLUENZA A- RESP PCR PANEL NOT DETECTED; INFLUENZA B - RESP PCR PANEL NOT DETECTED; M. PNEUMONIAE- RESP PCR PANEL NOT DETECTED; PARAINFLUENZA VIRUS 1 NOT DETECTED; PARAINFLUENZA VIRUS 2 NOT DETECTED; PARAINFLUENZA VIRUS 3 NOT DETECTED; PARAINFLUENZA VIRUS 4 NOT DETECTED; RHINOVIRUS/ENTEROVIRUS NOT DETECTED; RSV- RESP PCR PANEL NOT DETECTED; SARS-CoV-2 -RESP PCR PANEL NOT DETECTED
[2021-08-29 21:33] LABS: CLARITY,URINE CLEAR (CLEAR)
[2021-08-29 21:39] LABS: BACTERIA,URINE Rare /HPF (None Seen); MUCUS,URINE Few Strands; SQUAMOUS EPITHELIAL CELL,UR FEW Squamous (<= Few); WBC,URINE 0-3 /HPF (0-5)
--- NOTE | 2021-08-29 21:51 | CT Report ---
PROCEDURE: Abdomen/Pelvis W INDICATIONS: liver dz (Wilsons) and today hematemesis/abd pain CONTRAST: IV CONTRAST: Optiray 320 ml: 100 PO CONTRAST: *NO PO CONTRAST TECHNIQUE: After the administration of intravenous contrast, 5 mm thick sections acquired from the diaphragms to the symphysis. 5 mm thick coronal and sagittal reformats were acquired. For radiation dose reducti on, the following was used: automated exposure control, adjustment of mA and/or kV according to renato ent size. COMPARISON: 01/29/2020 spleen is normal in size. FINDINGS: Image quality: Excellent. ABDOMEN: Lung bases: Lung bases are clear. Heart size is normal. Solid organs: Again noted is diffuse hepatic steatosis. The left lobe of the liver is hypertrophied. Spleen is normal in size. Gallbladder is grossly unremarkable. Biliary system is non dilated. Pancr eas enhances normally. No adrenal nodules. Kidneys demonstrate normal size and enhancement, without hydronephrosis. Peritoneum and bowel: Bowel loops demonstrate normal wall thickness and caliber. No free fluid or a ir. Nodes and vessels: No retroperitoneal or mesenteric adenopathy by size criteria. Aorta and inferior vena cava are normal in size. Small upper abdominal varicosities. Miscellaneous: No ventral hernias. PELVIS: Genitourinary: Bladder wall thickness is normal. Miscellaneous: No inguinal hernias or adenopathy. 6.4 cm right adnexal cyst. Bones: No suspicious bony lesions. No vertebral body compression fractures. IMPRESSION: 1. Diffuse hepatic steatosis with a hypertrophied left lobe of the liver. 2. Small varicosities suggests portal venous hypertension. 3. 6.4 cm right adnexal cyst. Comment: Consider pelvic ultrasound in approximately 6 weeks to document resolution of the right adne xal cyst. Reviewed by: Mason Stevens MD on 08/29/2021 9:49 PM PDT Approved by: Mason Stevens MD on 08/29/2021 9:49 PM PDT Station ID: [id number]
[2021-08-29] MEDS ORDERED: PROCHLORPERAZINE 10 MG/2 ML VIAL IVP STA (22:56)
[2021-08-30 00:06] VITALS: BP 120/65
== END 2021-08-30 00:26 | disposition home or self-care (01) ==
LOC: ED 17:49
DX: K29.01 Acute gastritis with bleeding (principal); K21.9 Gastro-esophageal reflux disease without esophagitis; Z20.822 Contact with and (suspected) exposure to COVID-19; E83.01 Wilson's disease
CPT/HCPCS: 0202U; 36415; 74177; 80053; 81001; 83690; 84703; 85025; 96374; 96375; 96376; 99284; 99285; J1170; J1200; Q9967; 81003; 87086

== ENCOUNTER 2021-10-24 09:51 | Emergency (ER) | payer MEDICAID ==
--- NOTE | 2021-10-24 10:33 | ED Physician Documentation ---
PD HPI UPPER EXT INJURY - Stated complaint Stated Complaint: GLF-LT ARM/WRIST PX - Chief complaint Chief Complaint: Ext Problem - History obtained from History obtained from: Patient - Additonal information Additional information: Patient comes emergency department for chief complaint of alcohol withdrawal and left arm injury. Patient states that 2 days ago, she was walking when she tripped and fell forward onto her left arm. She states the entire thing hurts including her shoulder elbow, wrist, and fingers. No deformity. She has a point area of edema on the flexor aspect of her wrist on the radial side. She states that she has been drinking for the last several days and just now noticed the pain is alcohol is wearing off. She denies any vomiting but has been nauseated. She feels shaky. She would like to get help with her drinking. No other complaints at this time. No hallucinations. Review of Systems Ten Systems: 10 systems reviewed and negative Constitutional: reports: Reviewed and negative Eyes: reports: Reviewed and negative Ears: reports: Reviewed and negative Nose: reports: Reviewed and negative Throat: reports: Reviewed and negative Cardiac: reports: Reviewed and negative Respiratory: reports: Reviewed and negative GI: reports: Nausea : reports: Reviewed and negative Skin: reports: Reviewed and negative Musculoskeletal: reports: Extremity pain Neurologic: reports: Other (Tremors) Psychiatric: reports: Reviewed and negative Endocrine: reports: Reviewed and negative Immunocompromised: reports: Reviewed and negative PD PAST MEDICAL HISTORY - Past Medical History Cardiovascular: None Respiratory: None Neuro: Seizure disorder Endocrine/Autoimmune: None GI: GERD, 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 Elevated LFTs. No prior gallbladder nor pancreatic problems. Last EGD about a years ago, per patient. 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 : None HEENT: None Psych: Anxiety, Other Musculoskeletal: None Derm: None - Past Surgical History Past Surgical History: Yes HEENT: Tonsil/Adenoidectomy - Present Medications Home Medications: Ambulatory Orders Medication Instructions Recorded Confirmed Gabapentin [Neurontin] 300 mg PO BID 07/06/21 07/06/21 Ondansetron Odt [Zofran Odt] 4 mg TL Q6H PRN 07/06/21 07/06/21 Promethazine [Phenergan] 12.5 mg PO Q6H PRN 07/06/21 07/06/21 hydrOXYzine pamoate [Vistaril] 50 mg PO Q6H PRN 07/06/21 07/06/21 traZODone [Desyrel] 50 mg PO HS 07/06/21 07/06/21 Famotidine [Pepcid] 20 mg PO DAILY #20 tablet 08/30/21 Metoclopramide HCl [Metoclopramide 10 mg PO Q6H PRN #15 tab 08/30/21 HCl Odt] Ondansetron Odt [Zofran] 4 mg TL Q6H PRN #10 tablet 10/24/21 diazePAM [Valium] 5 mg PO TID PRN #6 tablet 10/24/21 - Allergies Allergies/Adverse Reactions: Allergies Allergy/AdvReac Type Severity Reaction Status Date / Time Sulfa (Sulfonamide Allergy Unknown Anaphylaxis Verified 10/24/21 10:12 Antibiotics) adhesive tape AdvReac Unknown Rash Verified 10/24/21 10:12 codeine AdvReac Unknown Nausea Verified 10/24/21 10:12 - Social History Does the pt smoke?: No Smoking Status: Never smoker Does the pt drink ETOH?: Yes Does the pt have substance abuse?: No - Immunizations Immunizations are current?: Yes - POLST Patient has POLST: No PD ED PE NORMAL - Vitals Vital signs reviewed: Yes - General General: Alert and oriented X 3, No acute distress, Well developed/nourished - HEENT HEENT: Atraumatic, PERRL, EOMI, Moist mucous membranes - Neck Neck: Supple, no meningeal sign - Cardiac Cardiac: No murmur, Strong equal pulses, Other (Tachycardic rate regular rhythm no murmurs) - Respiratory Respiratory: No respiratory distress, Clear bilaterally - Abdomen Abdomen: Soft, Non tender, Non distended - Derm Derm: Normal color, Warm and dry, No rash - Extremities Extremities: No deformity, No edema, No calf tenderness / cord, Other (2 cm diameter hematoma on radial/flexor aspect of left wrist. No deformity or edema elsewhere. No contusion. Patient has slow but fairly full range of motion of all joints in the left upper extremity.) - Neuro Neuro: Alert and oriented X 3, hand candle dipper 2-12 intact, Normal speech, Other (Mild tremors bilateral upper extremities.) - Psych Psych: Normal mood, Normal affect Results - Vitals Vitals: Oxygen O2 Source Room air - Labs Labs: Laboratory Tests 10/24/21 10/24/21 10/24/21 10:23 10:48 10:48 WBC 4.2 L RBC 3.69 L Hgb 11.0 L Hct 33.5 L MCV 90.8 MCH 29.8 MCHC 32.8 RDW 13.8 Plt Count 126 L MPV 10.3 Neut # (Auto) 3.1 Lymph # (Auto) 0.6 L [place] # (Auto) 0.4 Eos # (Auto) 0.0 Baso # (Auto) 0.0 Absolute Nucleated RBC 0.00 Nucleated RBC % 0.0 Sodium 140 Potassium 3.4 L Chloride 104 Carbon Dioxide 26 Anion Gap 10.0 BUN 10 Creatinine 0.3 L Estimated GFR (MDRD) 256 Glucose 99 Calcium 9.0 Total Bilirubin 2.0 H AST 69 H ALT 25 Alkaline Phosphatase 140 H Total Protein 7.8 Albumin 4.3 Globulin 3.5 Albumin/Globulin Ratio 1.2 Lipase 31 Nasal Adenovirus (PCR) Nasal B. parapertussis DNA (PCR) Nasal Coronavir 229E PCR Nasal Coronavir HKU1 PCR Nasal Coronavir NL63 PCR Nasal Coronavir OC43 PCR Nasal Enterovir/Rhinovir PCR Nasal Influenza B PCR Nasal Influenza A PCR Nasal Parainfluen 1 PCR Nasal Parainfluen 2 PCR Nasal Parainfluen 3 PCR Nasal Parainfluen 4 PCR Nasal RSV (PCR) Nasal B.pertussis DNA PCR Nasal C.pneumoniae (PCR) Hitesh Human Metapneumo PCR Nasal M.pneumoniae (PCR) Nasal SARS-CoV-2 (PCR) Urine Opiates Screen NEGATIVE Ur Oxycodone Screen NEGATIVE Urine Methadone Screen NEGATIVE Ur Propoxyphene Screen NEGATIVE Ur Barbiturates Screen NEGATIVE Ur Tricyclics Screen NEGATIVE Ur Phencyclidine Scrn NEGATIVE Ur Amphetamine Screen NEGATIVE U Methamphetamines Scrn NEGATIVE U Benzodiazepines Scrn NEGATIVE Urine Cocaine Screen NEGATIVE U Cannabinoids Screen POSITIVE H Ethyl Alcohol < 5.0 10/24/21 12:35 WBC RBC Hgb Hct MCV MCH MCHC RDW Plt Count MPV Neut # (Auto) Lymph # (Auto) [place] # (Auto) Eos # (Auto) Baso # (Auto) Absolute Nucleated RBC Nucleated RBC % Sodium Potassium Chloride Carbon Dioxide Anion Gap BUN Creatinine Estimated GFR (MDRD) Glucose Calcium Total Bilirubin AST ALT Alkaline Phosphatase Total Protein Albumin Globulin Albumin/Globulin Ratio Lipase Nasal Adenovirus (PCR) NOT DETECTED Nasal B. parapertussis DNA (PCR) NOT DETECTED Nasal Coronavir 229E PCR NOT DETECTED Nasal Coronavir HKU1 PCR NOT DETECTED Nasal Coronavir NL63 PCR NOT DETECTED Nasal Coronavir OC43 PCR NOT DETECTED Nasal Enterovir/Rhinovir PCR NOT DETECTED Nasal Influenza B PCR NOT DETECTED Nasal Influenza A PCR NOT DETECTED Nasal Parainfluen 1 PCR NOT DETECTED Nasal Parainfluen 2 PCR NOT DETECTED Nasal Parainfluen 3 PCR NOT DETECTED Nasal Parainfluen 4 PCR NOT DETECTED Nasal RSV (PCR) NOT DETECTED Nasal B.pertussis DNA PCR NOT DETECTED Nasal C.pneumoniae (PCR) NOT DETECTED Hitesh Human Metapneumo PCR NOT DETECTED Nasal M.pneumoniae (PCR) NOT DETECTED Nasal SARS-CoV-2 (PCR) NOT DETECTED Urine Opiates Screen Ur Oxycodone Screen Urine Methadone Screen Ur Propoxyphene Screen Ur Barbiturates Screen Ur Tricyclics Screen Ur Phencyclidine Scrn Ur Amphetamine Screen U Methamphetamines Scrn U Benzodiazepines Scrn Urine Cocaine Screen U Cannabinoids Screen Ethyl Alcohol - Rads (name of study) Left wrist x-ray series Radiology: Final report received, EMP read indepedently, See rad report (No fracture or dislocation) PD MEDICAL DECISION MAKING - ED course Complexity details: reviewed results, re-evaluated patient, considered differential, d/w patient ED course: Patient was treated with IV fluids, phenobarbital, Ativan and Toradol, after which she was feeling somewhat better. The patient's wrist x-ray was negative. Social work did speak with the patient and gave her some resource options for her alcohol abuse and desire for detox. The patient called around to various facilities, but no beds were available. At this point in time, social work and patient agreed that patient would go home and stay with her family and continue to call the rehab facilities to get the next available bed. We have discussed home management of her condition and the usual indications for return. The patient has been given a prescription for Valium to help with her alcohol withdrawal and transition off of alcohol. Departure - Departure Disposition: 01 Home, Self Care Clinical Impression: Alcohol withdrawal Qualifiers: Complication of substance-induced condition: uncomplicated Qualified Code(s): F10.230 - Alcohol dependence with withdrawal, uncomplicated Wrist contusion Qualifiers: Encounter type: initial encounter Laterality: left Qualified Code(s): S60.212A - Contusion of left wrist, initial encounter Condition: Stable Instructions: ED Withdrawal Alcohol, ED Contusion Upper Ext Prescriptions: diazePAM [Valium] 5 mg PO TID PRN #6 tablet PRN Reason: Spasms Ondansetron Odt [Zofran] 4 mg TL Q6H PRN #10 tablet PRN Reason: Nausea / Vomiting Comments: Your x-rays look good. Please call the detox facilities again tomorrow to see if any spaces have become available. You may take the Valium as needed for alcohol withdrawal symptoms. On the last day, you may cut the pills in half to help wean yourself down. Please do not drink any alcohol while you are on the pills. If you decide to drink, then please do not take the Valium, as this can be life-threatening. Your prescriptions have been electronically transmitted to [facility] pharmacy in [place]. Discharge Date/Time: 10/24/21 13:51
[2021-10-24] MEDS ORDERED: KETOROLAC 30 MG/ML VIAL IVP STA (10:34)
[2021-10-24] MEDS ORDERED: SODIUM CHLORIDE 0.9% 1,000 ML IV STA (10:35)
[2021-10-24] MEDS ORDERED: PHENobarbital 65 MG/ML VIAL IV STA (10:35)
[2021-10-24 10:58] LABS: BASOPHILS % (AUTO) 0.7 %; EOSINOPHILS % (AUTO) 0.2 %; HCT - HEMATOCRIT 33.5 % (37.0-47.0); LYMPHOCYTES # (AUTO) 0.6 10^3/uL (1.5-3.5); LYMPHOCYTES % (AUTO) 14.9 %; MEAN CORPUSCULAR HEMOGLOBIN 29.8 pg (27.0-31.0); MEAN CORPUSCULAR HGB CONC 32.8 g/dL (32.0-36.0); MEAN CORPUSCULAR VOLUME 90.8 fL (81.0-99.0); MEAN PLATELET VOLUME 10.3 fL (7.9-10.8); MONOCYTES # (AUTO) 0.4 10^3/uL (0.0-1.0); MONOCYTES % (AUTO) 9.7 %; NEUTROPHILS # (AUTO) 3.1 10^3/uL (1.5-6.6); NEUTROPHILS % (AUTO) 74.3 %; PLT - PLATELET COUNT 126 10^3/uL (130-450); RED BLOOD COUNT 3.69 10^6/uL (4.20-5.40); RED CELL DISTRIBUTION WIDTH 13.8 % (12.0-15.0); WHITE BLOOD COUNT 4.2 x10^3/uL (4.8-10.8)
[2021-10-24 11:08] LABS: MUDS CUTOFF CONCENTRATIONS CUTOFF CONC BELOW:
[2021-10-24 11:11] LABS: ALBUMIN 4.3 g/dL (3.2-5.5); ALBUMIN/GLOBULIN RATIO 1.2 (1.0-2.2); ALKALINE PHOSPHATASE 140 IU/L (42-121); ALT ALANINE AMINOTRANSFERASE 25 IU/L (10-60); AST ASPARTATE AMINOTRANSFERASE 69 IU/L (10-42); BUN - BLOOD UREA NITROGEN 10 mg/dL (6-20); CARBON DIOXIDE - CO2 26 mmol/L (21-32); CHLORIDE 104 mmol/L (101-111); CREATININE 0.3 mg/dL (0.4-1.0); ETOH - ETHANOL < 5.0 mg/dL; GFR - MDRD 256 (>89); GLUCOSE 99 mg/dL (70-100); LIPASE 31 U/L (22-51); POTASSIUM 3.4 mmol/L (3.5-5.0); SODIUM 140 mmol/L (135-145); TOTAL PROTEIN 7.8 g/dL (6.7-8.2)
[2021-10-24 11:27] LABS: AMPHETAMINE SCREEN,URINE NEGATIVE (NEGATIVE); BARBITURATE SCREEN,UR NEGATIVE (NEGATIVE); BENZODIAZEPINES SCREEN, URINE NEGATIVE (NEGATIVE); COCAINE SCREEN URINE NEGATIVE (NEGATIVE); METHADONE SCREEN, URINE NEGATIVE (NEGATIVE); METHAMPHETAMINES SCREEN, URINE NEGATIVE (NEGATIVE); OPIATE SCREEN, URINE NEGATIVE (NEGATIVE); OXYCODONE SCREEN, URINE NEGATIVE (NEGATIVE); PROPOXYPHENE SCREEN, URINE NEGATIVE (NEGATIVE); THC CANNABINOID SCREEN, URINE POSITIVE (NEGATIVE); TRICYCLIC ANTIDEPRESSANT,URINE NEGATIVE (NEGATIVE)
--- NOTE | 2021-10-24 12:11 | XRAY Report ---
PROCEDURE: Wrist 3 View LT INDICATIONS: fall/pain/swelling TECHNIQUE: 3 views of the wrist were acquired. COMPARISON: None. FINDINGS: Bones: No acute fractures or dislocations. No suspicious bony lesions. Soft tissues: No suspicious soft tissue calcifications. IMPRESSION: No acute osseous abnormality. If there is clinical concern or persistent symptoms, additional imaging such as repeat radiographs or advanced imaging (e.g. CT, MRI) may be helpful for further evaluation. Reviewed by: Gorge Neal MD on 10/24/2021 12:09 PM [facility] Approved by: Gorge Neal MD on 10/24/2021 12:09 PM [facility] Station ID: [id number]
[2021-10-24] MEDS ORDERED: diazePAM 5 MG TABLET PO STA (12:49)
[2021-10-24 13:41] LABS: B. PARAPERTUSSIS- RESP PCR PAN NOT DETECTED; B. PERTUSSIS- RESP PCR PANEL NOT DETECTED; C. PNEUMONIAE- RESP PCR PANEL NOT DETECTED; CORONAVIRUS 229E-RESP PCR NOT DETECTED; CORONAVIRUS HKU1-RESP PCR NOT DETECTED; CORONAVIRUS NL63-RESP PCR NOT DETECTED; CORONAVIRUS OC43-RESP PCR NOT DETECTED; HUMAN METAPNEUMOVIRUS NOT DETECTED; INFLUENZA A- RESP PCR PANEL NOT DETECTED; INFLUENZA B - RESP PCR PANEL NOT DETECTED; M. PNEUMONIAE- RESP PCR PANEL NOT DETECTED; PARAINFLUENZA VIRUS 1 NOT DETECTED; PARAINFLUENZA VIRUS 2 NOT DETECTED; PARAINFLUENZA VIRUS 3 NOT DETECTED; PARAINFLUENZA VIRUS 4 NOT DETECTED; RHINOVIRUS/ENTEROVIRUS NOT DETECTED; RSV- RESP PCR PANEL NOT DETECTED; SARS-CoV-2 -RESP PCR PANEL NOT DETECTED
[2021-10-24 13:51] VITALS: BP 126/80
== END 2021-10-24 13:51 | disposition home or self-care (01) ==
LOC: ED 09:51
DX: S60.212A Contusion of left wrist, initial encounter (principal); W01.0XXA Fall on same level from slipping, tripping and stumbling without subsequent striking against object, initial encounter; Y93.01 Activity, walking, marching and hiking; F10.230 Alcohol dependence with withdrawal, uncomplicated; Z20.822 Contact with and (suspected) exposure to COVID-19
CPT/HCPCS: 0202U; 36415; 73110; 80053; 80306; 80320; 83690; 85025; 96374; 99284; A9270

== ENCOUNTER 2021-12-23 19:28 | Outpatient (CLI) | payer MEDICAID | END 2021-12-23 19:29 | disposition EMS.NT | LOC: EMS 19:28 | DX: U07.1 COVID-19 (principal) ==

== ENCOUNTER 2022-01-18 05:03 | Emergency (ER) | payer MEDICAID ==
--- NOTE | 2022-01-18 05:30 | ED Physician Documentation ---
History of Present Illness - Stated complaint Stated Complaint: HEART PALPITATIONS - Chief complaint Chief Complaint: Cardiac - History obtained from History obtained from: Patient - History of Present Illness Timing: How many days ago (2-3) - Additonal information Additional information: patient states Marion relapsed on drugs and alcohol. She was inpatient at [facility] earlier this week, released 2 days ago. She says she has been drinking alcohol since release and has taken 2-3 adderall (not her rx although she had been on this rx in the past). She c/o insomnia, vague chest pain and rapid palpitations. Last drink of alcohol was last night. 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 Review of Systems Cardiac: reports: Palpitations. denies: Chest pain / pressure Respiratory: reports: Reviewed and negative GI: reports: Reviewed and negative : denies: Now EGA Neurologic: reports: Reviewed and negative Psychiatric: reports: Anxiety, Insomnia. 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 Elevated LFTs. No prior gallbladder nor pancreatic problems. Last EGD about a years ago, per patient. 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 DINKEY: None : None HEENT: None Psych: Anxiety, Other Musculoskeletal: None Derm: None - Past Surgical History Past Surgical History: Yes HEENT: Tonsil/Adenoidectomy - Present Medications Home Medications: Ambulatory Orders Medication Instructions Recorded Confirmed Gabapentin [Neurontin] 300 mg PO BID 07/06/21 01/18/22 hydrOXYzine pamoate [Vistaril] 50 mg PO Q6H PRN 07/06/21 01/18/22 LORazepam [Ativan] 1 mg PO TID PRN #8 tablet 01/18/22 - Allergies Allergies/Adverse Reactions: Allergies Allergy/AdvReac Type Severity Reaction Status Date / Time Sulfa (Sulfonamide Allergy Unknown Anaphylaxis Verified 01/18/22 05:24 Antibiotics) adhesive tape AdvReac Unknown Rash Verified 01/18/22 05:24 codeine AdvReac Unknown Nausea Verified 01/18/22 05:24 - Social History Does the pt smoke?: No Smoking Status: Never smoker Does the pt drink ETOH?: Yes Does the pt have substance abuse?: No - Immunizations Immunizations are current?: Yes - POLST Patient has POLST: No PD ED PE NORMAL - Vitals Vital signs reviewed: Yes - General General: Alert and oriented X 3, No acute distress, Well developed/nourished - HEENT HEENT: PERRL, EOMI, Moist mucous membranes - Cardiac Cardiac: No murmur - Respiratory Respiratory: No respiratory distress, Clear bilaterally - Neuro Neuro: Alert and oriented X 3 - Psych Psych: Normal mood, Normal affect PD ED PE EXPANDED - Cardiac Cardiac: Tachy, Regular Rhythm Results - Vitals Vitals: Vital Signs - 24 hr 01/18/22 01/18/22 01/18/22 05:05 05:27 05:40 Temperature 36.5 C Heart Rate 117 H 112 H 118 H Respiratory 16 19 16 Rate Blood Pressure 134/84 H 128/78 125/72 Blood Pressure 125/72 [Left] Blood Pressure 124/85 H [Right] O2 Saturation 99 97 98 01/18/22 06:44 Temperature Heart Rate 113 H Respiratory 18 Rate Blood Pressure 117/67 Blood Pressure [Left] Blood Pressure [Right] O2 Saturation 97 Oxygen O2 Source Room air - EKG (time done) No standard instances Rate: Rate (enter#) (109) Rhythm: Sinus tachycardia [place]: Normal Intervals: Normal OK QRS: Normal Ischemia: Normal ST segments - Labs Labs: Laboratory Tests 01/18/22 01/18/22 01/18/22 05:10 05:10 05:36 WBC RBC Hgb Hct MCV MCH MCHC RDW Plt Count MPV Neut # (Auto) Lymph # (Auto) [place] # (Auto) Eos # (Auto) Baso # (Auto) Absolute Nucleated RBC Nucleated RBC % Sodium 137 Potassium 3.5 Chloride 101 Carbon Dioxide 26 Anion Gap 10.0 BUN 10 Creatinine 0.6 Estimated GFR (MDRD) 115 Glucose 92 Calcium 9.2 Total Bilirubin 1.4 H AST 61 H ALT 28 Alkaline Phosphatase 80 Total Protein 7.5 Albumin 4.4 Globulin 3.1 Albumin/Globulin Ratio 1.4 Lipase 29 Urine Color YELLOW Urine Clarity CLEAR Urine pH 6.0 Ur Specific [place] >=1.030 H Urine Protein NEGATIVE Urine Glucose (UA) NEGATIVE Urine Ketones NEGATIVE Urine Occult Blood NEGATIVE Urine Nitrite NEGATIVE Urine Bilirubin NEGATIVE Urine Urobilinogen 1 (NORMAL) Ur Leukocyte Esterase NEGATIVE Ur Microscopic Review NOT INDICATED Urine HCG, Qual NEGATIVE Urine Opiates Screen NEGATIVE Ur Oxycodone Screen NEGATIVE Urine Methadone Screen NEGATIVE Ur Propoxyphene Screen NEGATIVE Ur Barbiturates Screen NEGATIVE Ur Tricyclics Screen NEGATIVE Ur Phencyclidine Scrn NEGATIVE Ur Amphetamine Screen POSITIVE H U Methamphetamines Scrn POSITIVE H U Benzodiazepines Scrn POSITIVE H Urine Cocaine Screen NEGATIVE U Cannabinoids Screen NEGATIVE Ethyl Alcohol 5.1 01/18/22 05:36 WBC 4.6 L RBC 3.78 L Hgb 10.9 L Hct 32.4 L MCV 85.7 MCH 28.8 MCHC 33.6 RDW 13.9 Plt Count 135 MPV 10.1 Neut # (Auto) 2.3 Lymph # (Auto) 1.6 [place] # (Auto) 0.5 Eos # (Auto) 0.1 Baso # (Auto) 0.0 Absolute Nucleated RBC 0.00 Nucleated RBC % 0.0 Sodium Potassium Chloride Carbon Dioxide Anion Gap BUN Creatinine Estimated GFR (MDRD) Glucose Calcium Total Bilirubin AST ALT Alkaline Phosphatase Total Protein Albumin Globulin Albumin/Globulin Ratio Lipase Urine Color Urine Clarity Urine pH Ur Specific [place] Urine Protein Urine Glucose (UA) Urine Ketones Urine Occult Blood Urine Nitrite Urine Bilirubin Urine Urobilinogen Ur Leukocyte Esterase Ur Microscopic Review Urine HCG, Qual Urine Opiates Screen Ur Oxycodone Screen Urine Methadone Screen Ur Propoxyphene Screen Ur Barbiturates Screen Ur Tricyclics Screen Ur Phencyclidine Scrn Ur Amphetamine Screen U Methamphetamines Scrn U Benzodiazepines Scrn Urine Cocaine Screen U Cannabinoids Screen Ethyl Alcohol PD MEDICAL DECISION MAKING - ED course Complexity details: reviewed old records, re-evaluated patient, considered differential, d/w patient ED course: drowsy but easily awakens to verbal stimuli. Recently released from [facility]. She says she was sober during [facility] stay and ETOH level tonight is 5.1. Given this timeline, patient is not in danger of serious alcohol withdrawal. She is tachyca rdic during ED stay which is attributable to adderall; she denies other drug use, specifically denies methamphetamine use. She is given 2mg IM lorazepam and on reevaluation her pulse improved to 90s-100s. She is calm, drowsy but awakens to verbal; we discussed what her goals are from this ED visit and after long discussion, she decides she is comfortable with d/c home with rx for short course of lorazepam to help with withdrawal. She says she intends to seek outpatient help with her addictions, and will consider inpatient if available and appropriate. I offer social work consult which she declines. Departure - Departure Disposition: Home, Self Care Clinical Impression: Alcohol withdrawal Qualifiers: Complication of substance-induced condition: uncomplicated Qualified Code(s): F10.230 - Alcohol dependence with withdrawal, uncomplicated Condition: Good Instructions: ED Withdrawal Alcohol Prescriptions: LORazepam [Ativan] 1 mg PO TID PRN #8 tablet PRN Reason: Anxiety Comments: Follow up with your primary care provider to discuss options for detox/rehab. A prescription for lorazepam (Ativan) has been electronically submitted to [facility] pharmacy in [place]. This is to be used sparingly for anxiety and alcohol withdrawal. Discharge Date/Time: 01/18/22 09:19
[2022-01-18 05:33] LABS: MUDS CUTOFF CONCENTRATIONS CUTOFF CONC BELOW:
[2022-01-18 05:34] LABS: BILIRUBIN,URINE NEGATIVE (NEGATIVE); GLUCOSE, URINE (UA) NEGATIVE (NEGATIVE); KETONES,URINE (UA) NEGATIVE (NEGATIVE); LEUKOCYTE ESTERASE, URINE NEGATIVE (NEGATIVE); NITRITE,URINE NEGATIVE (NEGATIVE); OCCULT BLOOD,URINE NEGATIVE (NEGATIVE); PROTEIN,URINE NEGATIVE (NEGATIVE); UROBILINOGEN,URINE 1 (NORMAL) E.U./dL (NORMAL)
[2022-01-18 05:35] LABS: CLARITY,URINE CLEAR (CLEAR)
[2022-01-18 05:37] LABS: HCG UR QUAL NEGATIVE
[2022-01-18 05:42] LABS: BASOPHILS % (AUTO) 0.7 %; EOSINOPHILS # (AUTO) 0.1 10^3/uL (0.0-0.7); EOSINOPHILS % (AUTO) 2.2 %; HCT - HEMATOCRIT 32.4 % (37.0-47.0); HGB - HEMOGLOBIN 10.9 g/dL (12.0-16.0); LYMPHOCYTES # (AUTO) 1.6 10^3/uL (1.5-3.5); LYMPHOCYTES % (AUTO) 35.5 %; MEAN CORPUSCULAR HEMOGLOBIN 28.8 pg (27.0-31.0); MEAN CORPUSCULAR HGB CONC 33.6 g/dL (32.0-36.0); MEAN CORPUSCULAR VOLUME 85.7 fL (81.0-99.0); MEAN PLATELET VOLUME 10.1 fL (7.9-10.8); MONOCYTES # (AUTO) 0.5 10^3/uL (0.0-1.0); MONOCYTES % (AUTO) 10.9 %; NEUTROPHILS # (AUTO) 2.3 10^3/uL (1.5-6.6); NEUTROPHILS % (AUTO) 50.5 %; PLT - PLATELET COUNT 135 10^3/uL (130-450); RED BLOOD COUNT 3.78 10^6/uL (4.20-5.40); RED CELL DISTRIBUTION WIDTH 13.9 % (12.0-15.0); WHITE BLOOD COUNT 4.6 x10^3/uL (4.8-10.8)
[2022-01-18 05:44] LABS: AMPHETAMINE SCREEN,URINE POSITIVE (NEGATIVE); BARBITURATE SCREEN,UR NEGATIVE (NEGATIVE); BENZODIAZEPINES SCREEN, URINE POSITIVE (NEGATIVE); COCAINE SCREEN URINE NEGATIVE (NEGATIVE); METHADONE SCREEN, URINE NEGATIVE (NEGATIVE); METHAMPHETAMINES SCREEN, URINE POSITIVE (NEGATIVE); OPIATE SCREEN, URINE NEGATIVE (NEGATIVE); OXYCODONE SCREEN, URINE NEGATIVE (NEGATIVE); PROPOXYPHENE SCREEN, URINE NEGATIVE (NEGATIVE); THC CANNABINOID SCREEN, URINE NEGATIVE (NEGATIVE); TRICYCLIC ANTIDEPRESSANT,URINE NEGATIVE (NEGATIVE)
[2022-01-18 05:54] LABS: ALBUMIN 4.4 g/dL (3.2-5.5); ALBUMIN/GLOBULIN RATIO 1.4 (1.0-2.2); BILIRUBIN,TOTAL 1.4 mg/dL (0.2-1.0); CALCIUM 9.2 mg/dL (8.5-10.3); CREATININE 0.6 mg/dL (0.4-1.0); ETOH - ETHANOL 5.1 mg/dL; POTASSIUM 3.5 mmol/L (3.5-5.0); TOTAL PROTEIN 7.5 g/dL (6.7-8.2)
[2022-01-18] MEDS ORDERED: LORazepam 2 MG/ML VIAL IM STA (06:32)
[2022-01-18 06:46] VITALS: BP 117/67
== END 2022-01-18 09:19 | disposition home or self-care (01) ==
LOC: ED 05:03
DX: F10.230 Alcohol dependence with withdrawal, uncomplicated (principal); Y90.0 Blood alcohol level of less than 20 mg/100 ml
CPT/HCPCS: 36415; 80053; 80306; 80320; 81003; 81025; 83690; 85025; 93005; 96372; 99284; J2060; 81001

== ENCOUNTER 2022-01-19 02:36 | Emergency (ER) | payer MEDICAID ==
[2022-01-19] MEDS ORDERED: hydrOXYzine PAMOATE 25 MG CAPSULE PO STA (03:06)
--- NOTE | 2022-01-19 03:07 | ED Physician Documentation ---
PD HPI MHE - Stated complaint Stated Complaint: SI - Chief complaint Chief Complaint: MHE - History obtained from History obtained from: Patient - History of Present Illness Primary symptom: Suicidal ideation, Self harm - cut - Additional information Additional information: Patient is a 31-year-old female presenting for evaluation of multiple self- inflicted lacerations to the left forearm that occurred approximately 1 hour ago in addition to suicidal thoughts.Patient is a poor historian at this time, answering questions softly and not wanting to elaborate with her answers. After having a conversation with her , she became upset. She cut herself mu ltiple times with a shaving razor. When asked what her intent was, Patient would not give a clear answer. Patient's tetanus is up-to-date. She does admit to alcohol use tonight but is unsure of how much. She denies any drug use.She denies concern for .She reports a history of suicide attempts and suicidal ideation in the past and was previously hospitalized a few months ago. She is currently taking gabapentin and hydroxyzine. 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 Elevated LFTs. No prior gallbladder nor pancreatic problems. Last EGD about a years ago, per patient. Does not recognize the term varices.) DIRECTOR OF SOCIAL SERVICES: None : None HEENT: None Psych: Anxiety, Other Musculoskeletal: None Derm: None - Past Surgical History Past Surgical History: Yes HEENT: Tonsil/Adenoidectomy - Present Medications Home Medications: Ambulatory Orders Medication Instructions Recorded Confirmed Gabapentin [Neurontin] 300 mg PO BID 07/06/21 01/18/22 hydrOXYzine pamoate [Vistaril] 50 mg PO Q6H PRN 07/06/21 01/18/22 LORazepam [Ativan] 1 mg PO TID PRN #8 tablet 01/18/22 - Allergies Allergies/Adverse Reactions: Allergies Allergy/AdvReac Type Severity Reaction Status Date / Time Sulfa (Sulfonamide Allergy Unknown Anaphylaxis Verified 01/18/22 05:24 Antibiotics) adhesive tape AdvReac Unknown Rash Verified 01/18/22 05:24 codeine AdvReac Unknown Nausea Verified 01/18/22 05:24 - Social History Does the pt smoke?: No Smoking Status: Never smoker Does the pt drink ETOH?: Yes Does the pt have substance abuse?: No - Immunizations Immunizations are current?: Yes - POLST Patient has POLST: No PD ED PE NORMAL - General General: Alert and oriented X 3, No acute distress, Well developed/nourished - HEENT HEENT: Atraumatic - Neck Neck: Supple, no meningeal sign - Cardiac Cardiac: Strong equal pulses, Other (Tachycardic, regular rhythm) - Respiratory Respiratory: No respiratory distress, Clear bilaterally - Extremities Extremities: Other (Multiple lacerations to left forearm, Distal pulses intact, no bony tenderness, No evidence of tendon injury, full range of motion at all joints, Motor and sensation intact) - Neuro Neuro: No motor deficit, No sensory deficit - Psych Psych: Other (Depressed, withdrawn, not wanting to make eye contact and very soft-spoken) PD ED PE EXPANDED - Extremities Extremities: Other - Visual Whole body visual: 1 - laceration Results - Vitals Vitals: Vital Signs - 24 hr 01/19/22 01/19/22 01/19/22 02:40 06:07 08:24 Temperature 36.1 C L 36.9 C Heart Rate 118 H 108 H 102 H Respiratory 18 16 14 Rate Blood Pressure 124/77 112/52 L O2 Saturation 97 96 01/19/22 15:39 Temperature 36.9 C Heart Rate 110 H Respiratory 14 Rate Blood Pressure 135/77 H O2 Saturation 96 Oxygen O2 Source Room air - Labs Labs: Laboratory Tests 01/19/22 01/19/22 01/19/22 03:06 03:11 03:11 WBC 4.6 L RBC 3.85 L Hgb 11.0 L Hct 33.3 L MCV 86.5 MCH 28.6 MCHC 33.0 RDW 13.9 Plt Count 119 L MPV 9.6 Neut # (Auto) 2.0 Lymph # (Auto) 2.0 [place] # (Auto) 0.4 Eos # (Auto) 0.1 Baso # (Auto) 0.0 Absolute Nucleated RBC 0.00 Nucleated RBC % 0.0 Sodium 142 Potassium 3.5 Chloride 104 Carbon Dioxide 25 Anion Gap 13.0 BUN 14 Creatinine 0.6 Estimated GFR (MDRD) 115 Glucose 102 H Calcium 9.3 Total Bilirubin 0.9 AST 55 H ALT 27 Alkaline Phosphatase 86 Total Protein 7.5 Albumin 4.4 Globulin 3.1 Albumin/Globulin Ratio 1.4 Lipase 33 TSH Urine Color Urine Clarity Urine pH Ur Specific [place] Urine Protein Urine Glucose (UA) Urine Ketones Urine Occult Blood Urine Nitrite Urine Bilirubin Urine Urobilinogen Ur Leukocyte Esterase Ur Microscopic Review Urine Culture Comments Urine HCG, Qual Salicylates < 6.0 Urine Opiates Screen Ur Oxycodone Screen Urine Methadone Screen Ur Propoxyphene Screen Acetaminophen < 10 L Ur Barbiturates Screen Ur Tricyclics Screen Ur Phencyclidine Scrn Ur Amphetamine Screen U Methamphetamines Scrn U Benzodiazepines Scrn Urine Cocaine Screen U Cannabinoids Screen Ethyl Alcohol 164.5 SARS-CoV-2 (PCR) DETECTED A 01/19/22 01/19/22 01/19/22 03:11 07:44 09:20 WBC RBC Hgb Hct MCV MCH MCHC RDW Plt Count MPV Neut # (Auto) Lymph # (Auto) [place] # (Auto) Eos # (Auto) Baso # (Auto) Absolute Nucleated RBC Nucleated RBC % Sodium Potassium Chloride Carbon Dioxide Anion Gap BUN Creatinine Estimated GFR (MDRD) Glucose Calcium Total Bilirubin AST ALT Alkaline Phosphatase Total Protein Albumin Globulin Albumin/Globulin Ratio Lipase TSH 1.11 Urine Color YELLOW Urine Clarity CLEAR Urine pH 6.0 Ur Specific [place] >=1.030 H Urine Protein NEGATIVE Urine Glucose (UA) NEGATIVE Urine Ketones NEGATIVE Urine Occult Blood NEGATIVE Urine Nitrite NEGATIVE Urine Bilirubin NEGATIVE Urine Urobilinogen 0.2 (NORMAL) Ur Leukocyte Esterase NEGATIVE Ur Microscopic Review NOT INDICATED Urine Culture Comments NOT INDICATED Urine HCG, Qual NEGATIVE Salicylates Urine Opiates Screen NEGATIVE Ur Oxycodone Screen NEGATIVE Urine Methadone Screen NEGATIVE Ur Propoxyphene Screen NEGATIVE Acetaminophen Ur Barbiturates Screen NEGATIVE Ur Tricyclics Screen NEGATIVE Ur Phencyclidine Scrn NEGATIVE Ur Amphetamine Screen POSITIVE H U Methamphetamines Scrn POSITIVE H U Benzodiazepines Scrn POSITIVE H Urine Cocaine Screen NEGATIVE U Cannabinoids Screen NEGATIVE Ethyl Alcohol 84.4 SARS-CoV-2 (PCR) Procedures - Laceration (location) Upper extremity left Length in cm: 2.5 Wound type: Linear, Clean Neurovascular status: Sensory intact, Motor intact, Vascular intact Tendon involvement: Tendon intact Anesthesia: EMLA Wound preparation: Betadine, Irrigated copiously NS, Wound explored Skin layer closure: Steri strips, Other (Patient refused sutures) Other: Patient tolerated well, Tetanus UTD PD MEDICAL DECISION MAKING - ED course ED course: 0345:Patient repeatedly requesting something to help her with her anxiety. States that the hydroxyzine does not help. She will not tell me how much alcohol she has had tonight. However she is able to converse with me when she wants and does not appear drowsy at this time. we will give her a very small dose of Ativan and reassess. 0405: Patient appears calm, laying on her side in hospital stretcher. EMLA cream was applied to the areas of laceration and were copiously irrigated and cleaned.There is at least one small wound requiring Single-layer stitches. Patient is requesting pain medication prior toSutures. I offered Tylenol which patient states she is not able to take. I also offered ibuprofen which the patient states she does not want. I explained that I would be applying additional lidocaine to the areas that would require sutures and reassured the patient that she is already received a topical anesthetic to the area. Patient states that she wants something stronger For pain before suturing. Her wounds appear quite superficial and I do not think warrant a narcotic medication for repair.I again offered Motrin and additional lidocaine prior to placing any sutures. Patient again declines. I did explain that some areas without sutures would have a larger scar And could be susceptible to infection. Patient indicates that she understands these risks. Patient is agreeable to having Steri-Strips And dressing placed. Psychology labs reviewed. CBC and chemistries additionally reviewed. CBC appears consistent with previous results. Patient h as been medically cleared for psychiatry evaluation.Consult has been requested. 0436: Patient's Covid test returned positive. She reports that she was Covid positive at the beginning of the month and quarantine for 14 days. She had mild symptoms at that time. She took another Covid test which was negative at the end of her quarantine. She denies any symptoms related to Covid at this time such as fever, cough, difficulty breathing.She did receive her first dose of the covid vaccine last week. Patient again was offered sutures to repair her lacerations. One wound in particular is gaping but still relatively superficial. Patient continues to decline sutures unless she is to get a strong pain medication in her words.Again I do not feel that is indicated in this clinical situation. Patient was agreeable to having Steri-Strips placed. 0712: Urine tests pending. Telepsych consult pending. Will sign out to oncoming physician. Departure - Departure Clinical Impression: Alcohol abuse, Suicidal ideation, Self-harming behavior, Multiple lacerations, COVID
[2022-01-19 03:18] LABS: BASOPHILS % (AUTO) 0.4 %; EOSINOPHILS # (AUTO) 0.1 10^3/uL (0.0-0.7); EOSINOPHILS % (AUTO) 3.1 %; HCT - HEMATOCRIT 33.3 % (37.0-47.0); LYMPHOCYTES % (AUTO) 44.5 %; MEAN CORPUSCULAR HEMOGLOBIN 28.6 pg (27.0-31.0); MEAN CORPUSCULAR VOLUME 86.5 fL (81.0-99.0); MEAN PLATELET VOLUME 9.6 fL (7.9-10.8); MONOCYTES # (AUTO) 0.4 10^3/uL (0.0-1.0); MONOCYTES % (AUTO) 8.3 %; NEUTROPHILS % (AUTO) 43.5 %; PLT - PLATELET COUNT 119 10^3/uL (130-450); RED BLOOD COUNT 3.85 10^6/uL (4.20-5.40); RED CELL DISTRIBUTION WIDTH 13.9 % (12.0-15.0); WHITE BLOOD COUNT 4.6 x10^3/uL (4.8-10.8)
[2022-01-19] MEDS ORDERED: LIDOCAINE/PRILOCAINE 2.5% CREAM 5 GM TUBE TOP STA (03:23)
[2022-01-19 03:33] LABS: ACETAMINOPHEN < 10 ug/mL (10-30); ALBUMIN 4.4 g/dL (3.2-5.5); ALBUMIN/GLOBULIN RATIO 1.4 (1.0-2.2); ALKALINE PHOSPHATASE 86 IU/L (42-121); ALT ALANINE AMINOTRANSFERASE 27 IU/L (10-60); AST ASPARTATE AMINOTRANSFERASE 55 IU/L (10-42); BILIRUBIN,TOTAL 0.9 mg/dL (0.2-1.0); BUN - BLOOD UREA NITROGEN 14 mg/dL (6-20); CALCIUM 9.3 mg/dL (8.5-10.3); CARBON DIOXIDE - CO2 25 mmol/L (21-32); CHLORIDE 104 mmol/L (101-111); CREATININE 0.6 mg/dL (0.4-1.0); ETOH - ETHANOL 164.5 mg/dL; GFR - MDRD 115 (>89); GLUCOSE 102 mg/dL (70-100); LIPASE 33 U/L (22-51); POTASSIUM 3.5 mmol/L (3.5-5.0); SALICYLATE < 6.0 mg/dL; SODIUM 142 mmol/L (135-145); TOTAL PROTEIN 7.5 g/dL (6.7-8.2)
[2022-01-19] MEDS ORDERED: LORazepam 0.5 MG TABLET PO STA (03:44)
--- NOTE | 2022-01-19 08:10 | TELEPSYCH PHYS NOTE ---
Telepsych Consultation Note Consult: [facility] Name: Ara SanOB: 1990 DateandTime: 01/19/2022 10:40:18 AM Location of the patient: [facility] EDLocation of the doctor: My office in [place], [place] Length of consult: 50 mins This evaluation was conducted via video telepsychiatry with the assistance of onsite staff Reason for consult: ED evaluation Requested by: Valentín Greene History of Present Illness: 31 year-old female with hx methamphetamine abuse, alcohol use disorder, and depression presented to the ED last night s/p suicide attempt by self-inflicted wrist lacerations in the setting of relapse to drugs and alcohol following release from residential substance abuse treatment; BAL on arrival = 165; UDS + methamphetamine and + benzos. At this time pt is calm, cooperative, and sleepy. She reports that she spent 30 days in "rehab" but became acutely suicidal following her relapse. She states she is glad she survived but she is "not sure" about whether she remains suicidal. She denies HI//AVH. No charles delusions or thought disorder appreciated. She c/o continued depressed mood and anxiety. requests Ativan and pain medication for her wounds. states Seroquel and hydroxyzine "don't work" for her anxiety symptoms. Collateral Contacted: Karen for not contacting the collateral:Patient meets criteria for admission Sleep issues?: YesSleep Quantity:Chronic insomniaSleep Quality:Poor Psychiatric History/Treatment History: Past diagnoses: Hx depression and PTSD Hospitalizations: YesDescription:Hx multiple IP BH; most recently admitted approx. 6 months ago Current Treatment:No Suicide Assessment: PSS-3: 1) Over the past 2 weeks have you felt down, depressed or hopeless?Yes 2) Over the past 2 weeks have you had thoughts of killing yourself?Yes 3) Have you ever in your life attempted to kill yourself?Yes If yes, within the past 6 months Yes PSS-3 Secondary Screen: If #2 is yes or #3 is yes within the past 6 months, then complete secondary screen: 1) Positive on PSS-3 questions 2 & 3 active SI with a past attempt?No 2) Have you been thinking about how you might kill yourself?Yes 3) Have you had some intention of acting on your thoughts?Yes 4) Lifetime psychiatric hospitalization?Yes 5) Has drinking or substance abuse ever been a problem for you?Yes 6) Current irritability, agitation, or aggression?No PSS-3 Secondary Screen Scoring: Mild Notes: Mild(0-2) No current attempt and no plan/intent Moderate(3-4) No current attempt, Plan OR intent but not both Severe(5-6) Current Attempt with Plan AND [facility] Safety Assessment: Risk Factors Stressors: relapse to drugs and alcohol Attempts/Self-injury: YesDescription:Recent suicide attempt by cutting Impulsivity:YesDescription: Drug/Alcohol History:YesDescription: Trauma History:YesDescription: Access to firearms:No HI/Violence/Property destruction:No Legal: No Family Psych History:Unknown-NA Family History of suicide:Unknown-NA Protective Factors: Can handle stress well?No Jehovah'S Witness?No External: Social supports/ Therapeutic relationships: YesDescription:Mother is supportive Relationship history: Living situation: Lives with her mother Employment: No Education: Some college Responsibility to family/children/work: No Future orientation:No Health History: Medical History: Trey's Disease Medications & Freq: Seroquel hydroxyzine Gabapentin 300mg PO TID Allergies: Sulfa Mental Status Exam: Appearance and Attire:Disheveled Psychomotor agitation:Psychomotor retardation Attitude and behavior:Cooperative Speech:Paucity of speech Mood:Depressed, Sleepy Affect:Flat Thought process:Linear, Vague Thought content:Suicidal ideation, No homicidal ideation Perception:No hallucinations Intel: Abstract:[place] Language: Orientation:Grossly oriented Sense:Normal Knowledge: Memory: Insight:Severe impairment Judgement:Severe impairment Gait:No abnormality Impression/Risk Assessment: Current Suicide Risk Elevated?Yes Current Violence Risk Elevated?No Issues with ability to care for self?No Summary: 31 year-old female with unspecified depression, methamphetamine abuse, alcohol use disorder, and historical PTSD s/p suicide attempt by wrist-cutting; she remains at elevated risk of intentional self-harm. Diagnosis: F32.8 Other depressive episodes CPT Codes: 42038 - Psychiatric Diagnostic Evaluation with Medical Services Treatment Plan: Level of Care: Hold for voluntary referral to [facility] resources; if she refuses then she would meet criteria for DCR referral. Psychiatric Clearance: No Observation level 1:1 needed?: Yes Pharmacological: Restart usual meds when pt more awake and alert Patient psychotic?No Therapy: Supportive Follow up needed while in the hospital?: No Discussed plan with onsite endless steamer tender: Thanks for the opportunity to participate in the care of this patient. Ilya Nicolas MD 01/19/22 @ 11:08 ET List names and roles of persons who participated in consult:
[2022-01-19 09:25] LABS: MUDS CUTOFF CONCENTRATIONS CUTOFF CONC BELOW:
[2022-01-19 09:27] LABS: BILIRUBIN,URINE NEGATIVE (NEGATIVE); GLUCOSE, URINE (UA) NEGATIVE (NEGATIVE); KETONES,URINE (UA) NEGATIVE (NEGATIVE); LEUKOCYTE ESTERASE, URINE NEGATIVE (NEGATIVE); NITRITE,URINE NEGATIVE (NEGATIVE); OCCULT BLOOD,URINE NEGATIVE (NEGATIVE); PROTEIN,URINE NEGATIVE (NEGATIVE); UROBILINOGEN,URINE 0.2 (NORMAL) E.U./dL (NORMAL)
[2022-01-19 09:31] LABS: CLARITY,URINE CLEAR (CLEAR); HCG UR QUAL NEGATIVE
[2022-01-19 09:38] LABS: AMPHETAMINE SCREEN,URINE POSITIVE (NEGATIVE); COCAINE SCREEN URINE NEGATIVE (NEGATIVE); METHAMPHETAMINES SCREEN, URINE POSITIVE (NEGATIVE); OPIATE SCREEN, URINE NEGATIVE (NEGATIVE); THC CANNABINOID SCREEN, URINE NEGATIVE (NEGATIVE)
[2022-01-19 09:39] LABS: BARBITURATE SCREEN,UR NEGATIVE (NEGATIVE); BENZODIAZEPINES SCREEN, URINE POSITIVE (NEGATIVE); METHADONE SCREEN, URINE NEGATIVE (NEGATIVE); OXYCODONE SCREEN, URINE NEGATIVE (NEGATIVE); PROPOXYPHENE SCREEN, URINE NEGATIVE (NEGATIVE); TRICYCLIC ANTIDEPRESSANT,URINE NEGATIVE (NEGATIVE)
--- NOTE | 2022-01-19 14:21 | ED Physician Documentation ---
ED Addendum - Addendum Addendum: 01/19/22 14:20 Social work evaluated the patient. There are no beds available in the region today. She does not appear to be safe to be discharged home at this time. We will continue to hold the patient in the emergency department for safety and further care. Patient is agreeable to staying and seeking voluntary placement.
[2022-01-19] MEDS ORDERED: LORazepam 1 MG TABLET PO STA (15:46)
[2022-01-19] MEDS ORDERED: QUEtiapine 100 MG TABLET PO STA (21:58)
[2022-01-20] MEDS ORDERED: GABAPENTIN 100 MG CAPSULE PO STA (14:15)
[2022-01-20] MEDS ORDERED: hydrOXYzine PAMOATE 25 MG CAPSULE PO STA (14:15)
[2022-01-20] MEDS ORDERED: LORazepam 1 MG TABLET PO STA (14:16)
[2022-01-20] MEDS ORDERED: hydrOXYzine PAMOATE 25 MG CAPSULE PO PRN (14:40)
[2022-01-20 14:42] VITALS: BP 128/73
--- NOTE | 2022-01-20 17:52 | ED Physician Documentation ---
ED Addendum - Addendum Addendum: 01/20/22 17:51 This is a 31-year-old woman who is been boarding in the department for help with depression, drug and alcohol use. Please see the social services's note. At this point she has contracted for safety and is felt safe for discharge. She was given resources and return precautions. Also a prescription for lorazepam 1 p.o. 3 times daily as needed anxiety #7 without refills E prescribed to Denisha. Diagnoses: 1. Depression 2. drug abuse 3. Alcohol use Disposition: Discharged home with mom Condition stable
[2022-01-20] MEDS ORDERED: GABAPENTIN 100 MG CAPSULE PO SCH (21:00)
== END 2022-01-20 18:08 | disposition home or self-care (01) ==
LOC: ED 02:36
DX: U07.1 COVID-19 (principal); F32.A Depression, unspecified; F10.129 Alcohol abuse with intoxication, unspecified; Y90.4 Blood alcohol level of 80-99 mg/100 ml; F15.94 Other stimulant use, unspecified with stimulant-induced mood disorder; F19.90 Other psychoactive substance use, unspecified, uncomplicated; S61.512A Laceration without foreign body of left wrist, initial encounter; X78.8XXA Intentional self-harm by other sharp object, initial encounter
CPT/HCPCS: 12001; 36415; 80053; 80306; 80307; 80320; 80329; 81003; 81025; 83690; 84443; 85025; 87635; 90836; 99283; A9270; J3490; J8499; Q3014; 81001; 87086

== ENCOUNTER 2022-02-12 11:17 | Emergency (ER) | payer MEDICAID ==
--- NOTE | 2022-02-12 11:52 | ED Physician Documentation ---
PD HPI DYSPNEA - Stated complaint Stated Complaint: SOA, CHEST PX - Chief complaint Chief Complaint: Resp - History obtained from History obtained from: Patient - History of Present Illness Inciting event(s): Other (recent heavy drinking and feeling she is having alcohol related symptoms (gastritis and withdrawal)) Worsened by: No: Exertion Associated symptoms: No: Fever, Cough, Hemoptysis Similar symptoms before: Diagnosis (similar to alcoholic gastritis in past. No history of pancreatitis. Has had withdrawal and feeling similar to that as well.) Review of Systems Constitutional: reports: Myalgias. denies: Fever, Chills Nose: denies: Rhinorrhea / runny nose, Congestion Throat: denies: Sore throat Cardiac: reports: Chest pain / pressure (substernal associated with nausea and vomiting.). denies: Palpitations, Pedal edema, Calf pain Respiratory: denies: Cough GI: reports: Abdominal Pain, Nausea, Vomiting, Diarrhea. denies: Hematemesis, Bloody / black stool : denies: Dysuria, Frequency Skin: denies: Rash Musculoskeletal: denies: Neck pain, Back pain Neurologic: reports: Generalized weakness. denies: Near syncope, Syncope, Altered mental status Psychiatric: denies: Suicidal, Homicidal Endocrine: denies: Weight loss Immunocompromised: reports: Other (chronic alcoholism, with recent sober period, but heavily again the past 1-2 weeks.). 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 : None HEENT: None Psych: Anxiety, Other Musculoskeletal: None Derm: None - Past Surgical History Past Surgical History: Yes HEENT: Tonsil/Adenoidectomy - Present Medications Home Medications: Ambulatory Orders Medication Instructions Recorded Confirmed Gabapentin [Neurontin] 300 mg PO BID 07/06/21 01/19/22 hydrOXYzine pamoate [Vistaril] 50 mg PO Q6H PRN 07/06/21 01/19/22 LORazepam [Ativan] 1 mg PO TID PRN #8 tablet 01/18/22 01/19/22 LORazepam [Ativan] 1 mg PO TID PRN #7 tablet 01/20/22 Albuterol Sulf [Ventolin Hfa 1 - 2 puffs INH Q4HR PRN #1 inhaler 02/12/22 Inhaler] LORazepam [Ativan] 1 mg PO BID PRN #12 tablet 02/12/22 Ondansetron Odt [Zofran] 4 mg TL Q6H PRN #20 tablet 02/12/22 PHENobarbitaL [Phenobarbital] 30 mg PO BID 6 Days #9 tablet 02/12/22 - Allergies Allergies/Adverse Reactions: Allergies Allergy/AdvReac Type Severity Reaction Status Date / Time Sulfa (Sulfonamide Allergy Unknown Anaphylaxis Verified 01/18/22 05:24 Antibiotics) adhesive tape AdvReac Unknown Rash Verified 01/18/22 05:24 codeine AdvReac Unknown Nausea Verified 01/18/22 05:24 - Social History Does the pt smoke?: No Smoking Status: Never smoker Does the pt drink ETOH?: Yes Does the pt have substance abuse?: No - Immunizations Immunizations are current?: Yes - POLST Patient has POLST: No PD ED PE NORMAL - Vitals Vital signs reviewed: Yes - General General: Alert and oriented X 3, Well developed/nourished, Other (appears uncomfortable, dry heaving in emesis bag, having upper abd pain, and is tachycardic and shaky. ) - HEENT HEENT: Pharynx benign. No: Moist mucous membranes - Neck Neck: Supple, no meningeal sign, No adenopathy - Cardiac Cardiac: No murmur. No: RRR (regular but tachycardic.) - Respiratory Respiratory: Clear bilaterally - Abdomen Abdomen: Normal bowel sounds, Soft, Non distended, No organomegaly, Other (tender epigastric area with guarding, but no percusssion tenderness.) - Female Female : Deferred - Rectal Rectal: Deferred - Back Back: No CVA TTP - Derm Derm: Normal color, Warm and dry - Extremities Extremities: No tenderness to palpate, Normal ROM s pain, No edema, No calf tenderness / cord - Neuro Neuro: Alert and oriented X 3, No motor deficit, Normal speech Eye Opening: Spontaneous Motor: Obeys Commands Verbal: Oriented GCS Score: 15 - Psych Psych: Normal affect (pleasant and interacts well. answers questions readily. ) Results - Vitals Vitals: Vital Signs - 24 hr 02/12/22 02/12/22 13:09 14:53 Heart Rate 100 80 Respiratory 20 16 Rate Blood Pressure 122/75 118/78 O2 Saturation 98 100 Oxygen O2 Source Room air - EKG (time done) 11:20 Rate: Rate (enter#) (139) Rhythm: Sinus tachycardia [place]: Normal Intervals: Normal SD Ischemia: Non specific changes. No: ST elevation c/w ischemia, ST depression Compare to prior EKG: Unchanged from prior EKG (Dec 2021) - Labs Labs: Laboratory Tests 02/12/22 02/12/22 02/12/22 11:30 11:30 11:30 WBC 4.6 L RBC 4.06 L Hgb 11.8 L Hct 35.3 L MCV 86.9 MCH 29.1 MCHC 33.4 RDW 14.0 Plt Count 165 MPV 10.5 Neut # (Auto) 2.6 Lymph # (Auto) 1.6 [place] # (Auto) 0.4 Eos # (Auto) 0.0 Baso # (Auto) 0.0 Absolute Nucleated RBC 0.00 Nucleated RBC % 0.0 Sodium 140 Potassium 3.7 Chloride 100 L Carbon Dioxide 26 Anion Gap 14.0 H BUN 12 Creatinine 0.5 Estimated GFR (MDRD) 142 Glucose 167 H Calcium 10.2 Total Bilirubin 0.8 AST 61 H ALT 32 Alkaline Phosphatase 124 H B-Natriuretic Peptide < 5 L Total Protein 8.2 Albumin 4.5 Globulin 3.7 Albumin/Globulin Ratio 1.2 Lipase 32 Ethyl Alcohol 137.7 - Rads (name of study) chest xray Radiology: Prelim report reviewed (no acute process), See rad report PD MEDICAL DECISION MAKING - ED course Complexity details: reviewed results (ETOH still moderate but could be having early withdrawal even at that level. She feels better with meds for withdrawal, as well as fluids. She declines SW for detox/rehab placement from ER. ), re- evaluated patient (Patient is feeling better after IV fluids and antiemetics as well as lorazepam for withdrawal. I also will give dose of phenobarbital to help with maintaining withdrawal treatment and prescribe it for follow-up.), considered differential (consider gastritis, pancreatitis, heart process (ACS), but also with tachy/nausea from likely alcohol withdrawal. ), d/w patient ED course: She was offered social work to help with substance or alcohol treatment acutely. She states she has the resources and then to them before we will give a call to the detox centers herself. Her breathing is feeling better at this time. Consider some possibility of viral illness or reactive airway disease subsequent to her Covid a couple of months ago. She could use an albuterol inhaler if needed. Otherwise we will treat with standard dose of phenobarb over 6 days with lorazepam in addition if needed. She states she will stop alcohol. Recheck in the ER showed her to be sleepy but easily arousable and conversant. Heart rate has decreased considerably and is now at 100. Blood pressure remains good. She is able to take sips of water without any feeling of nausea. She has not had any vomiting after initial medications. She does seem improved enough for discharge at this time. She is offered social work again to look at help with alcohol treatment or detox and she declined and says she would call them herself later today. Departure - Departure Disposition: 01 Home, Self Care Clinical Impression: Chest tightness Nausea and vomiting Qualifiers: Vomiting type: unspecified Qualified Code(s): R11.2 - Nausea with vomiting, unspecified Alcohol withdrawal Qualifiers: Complication of substance-induced condition: uncomplicated Qualified Code(s): F10.230 - Alcohol dependence with withdrawal, uncomplicated Condition: Stable Record reviewed to determine appropriate education?: Yes Instructions: ED Withdrawal Alcohol, ED Dyspnea Shortness of Breath Prescriptions: Albuterol Sulf [Ventolin Hfa Inhaler] 1 - 2 puffs INH Q4HR PRN #1 inhaler PRN Reason: Shortness Of Air/Wheezing LORazepam [Ativan] 1 mg PO BID PRN #12 tablet PRN Reason: Alcohol Withdrawal PHENobarbitaL [Phenobarbital] 30 mg PO BID 6 Days #9 tablet Ondansetron Odt [Zofran] 4 mg TL Q6H PRN #20 tablet PRN Reason: Nausea / Vomiting Comments: Small frequent fluids. [place] food initially and progress diet as tolerated. Use ondansetron every 4-6 hours if needed for nausea. Your chest x-ray and EKG are good except for some fast heart rate which improved with treating the withdrawal. No signs of more significant problem such as pneumonia or fluid around the heart or lungs. There may be some airway irritation leading to the trouble breathing. I would suggest using albuterol inhaler 2 puffs 4 times a day as needed for shortness of breath. Regarding the alcohol withdrawal, certainly avoid any alcohol intake. Contact the alcohol treatment programs they have information for. Treat the alcohol withdrawal with phenobarbital twice daily for 3 days then once daily for 3 days. This should provide a baseline treatment for the withdrawal. To that add lorazepam every 6-8 hours if needed for worse symptoms. Return to the ER if your symptoms again. I transmitted your prescriptions to the pharmacy. Discharge Date/Time: 02/12/22 14:54
[2022-02-12] MEDS ORDERED: SODIUM CHLORIDE 0.9% 1,000 ML IV STA (12:06)
[2022-02-12] MEDS ORDERED: DROPERIDOL 5 MG/2 ML VIAL IVP STA (12:06)
[2022-02-12] MEDS ORDERED: KETOROLAC 15 MG/ML VIAL IVP STA (12:06)
[2022-02-12] MEDS ORDERED: FAMOTIDINE 20 MG/2 ML VIAL IVP STA (12:06)
[2022-02-12] MEDS ORDERED: LORazepam 2 MG/ML VIAL IVP STA (12:07)
[2022-02-12 12:14] LABS: BASOPHILS % (AUTO) 0.6 %; EOSINOPHILS % (AUTO) 0.9 %; HCT - HEMATOCRIT 35.3 % (37.0-47.0); HGB - HEMOGLOBIN 11.8 g/dL (12.0-16.0); LYMPHOCYTES # (AUTO) 1.6 10^3/uL (1.5-3.5); LYMPHOCYTES % (AUTO) 35.2 %; MEAN CORPUSCULAR HEMOGLOBIN 29.1 pg (27.0-31.0); MEAN CORPUSCULAR HGB CONC 33.4 g/dL (32.0-36.0); MEAN CORPUSCULAR VOLUME 86.9 fL (81.0-99.0); MEAN PLATELET VOLUME 10.5 fL (7.9-10.8); MONOCYTES # (AUTO) 0.4 10^3/uL (0.0-1.0); MONOCYTES % (AUTO) 7.8 %; NEUTROPHILS # (AUTO) 2.6 10^3/uL (1.5-6.6); NEUTROPHILS % (AUTO) 55.1 %; PLT - PLATELET COUNT 165 10^3/uL (130-450); RED BLOOD COUNT 4.06 10^6/uL (4.20-5.40); WHITE BLOOD COUNT 4.6 x10^3/uL (4.8-10.8)
[2022-02-12 12:22] LABS: ALBUMIN 4.5 g/dL (3.2-5.5); ALBUMIN/GLOBULIN RATIO 1.2 (1.0-2.2); BILIRUBIN,TOTAL 0.8 mg/dL (0.2-1.0); CALCIUM 10.2 mg/dL (8.5-10.3); CREATININE 0.5 mg/dL (0.4-1.0); ETOH - ETHANOL 137.7 mg/dL; POTASSIUM 3.7 mmol/L (3.5-5.0); TOTAL PROTEIN 8.2 g/dL (6.7-8.2)
--- NOTE | 2022-02-12 12:30 | XRAY Report ---
PROCEDURE: Chest 1 View X-Ray INDICATIONS: dyspnea TECHNIQUE: One view of the chest was acquired. COMPARISON: 04/20/2020 FINDINGS: Surgical changes and devices: None. Lungs and pleura: No pleural effusions or pneumothorax. Lungs are clear. Mediastinum: Mediastinal contours appear normal. Heart size is normal. Bones and chest wall: No suspicious bony lesions. Overlying soft tissues appear unremarkable. IMPRESSION: Stable chest; no acute cardiopulmonary disease. Reviewed by: Lety Luther MD on 02/12/2022 12:28 PM PDT Approved by: Lety Luther MD on 02/12/2022 12:28 PM PDT Station ID: [id number]
[2022-02-12] MEDS ORDERED: PHENobarbital 65 MG/ML VIAL IV STA (12:57)
[2022-02-12 14:54] VITALS: BP 118/78
== END 2022-02-12 14:54 | disposition home or self-care (01) ==
LOC: ED 11:17
DX: F10.239 Alcohol dependence with withdrawal, unspecified (principal); Y90.6 Blood alcohol level of 120-199 mg/100 ml
CPT/HCPCS: 36415; 71045; 80053; 80320; 83690; 83880; 85025; 93005; 96361; 96374; 96375; 99283; 99285; J2060

== ENCOUNTER 2022-03-06 10:03 | Emergency (ER) | payer MEDICAID ==
[2022-03-06 10:29] LABS: BASOPHILS % (AUTO) 0.7 %; EOSINOPHILS # (AUTO) 0.1 10^3/uL (0.0-0.7); EOSINOPHILS % (AUTO) 0.9 %; HCT - HEMATOCRIT 35.3 % (37.0-47.0); HGB - HEMOGLOBIN 11.7 g/dL (12.0-16.0); LYMPHOCYTES # (AUTO) 1.4 10^3/uL (1.5-3.5); LYMPHOCYTES % (AUTO) 25.5 %; MEAN CORPUSCULAR HEMOGLOBIN 28.2 pg (27.0-31.0); MEAN CORPUSCULAR HGB CONC 33.1 g/dL (32.0-36.0); MEAN CORPUSCULAR VOLUME 85.1 fL (81.0-99.0); MEAN PLATELET VOLUME 9.7 fL (7.9-10.8); MONOCYTES # (AUTO) 0.3 10^3/uL (0.0-1.0); NEUTROPHILS # (AUTO) 3.5 10^3/uL (1.5-6.6); NEUTROPHILS % (AUTO) 65.8 %; PLT - PLATELET COUNT 175 10^3/uL (130-450); RED BLOOD COUNT 4.15 10^6/uL (4.20-5.40); RED CELL DISTRIBUTION WIDTH 13.6 % (12.0-15.0); WHITE BLOOD COUNT 5.4 x10^3/uL (4.8-10.8)
[2022-03-06 10:46] LABS: ALBUMIN 4.5 g/dL (3.2-5.5); ALBUMIN/GLOBULIN RATIO 1.3 (1.0-2.2); BILIRUBIN,TOTAL 0.9 mg/dL (0.2-1.0); CREATININE 0.4 mg/dL (0.4-1.0); POTASSIUM 3.6 mmol/L (3.5-5.0); TOTAL PROTEIN 8.1 g/dL (6.7-8.2)
--- NOTE | 2022-03-06 10:46 | XRAY Report ---
PROCEDURE: Chest 1 View X-Ray INDICATIONS: Chest Pain TECHNIQUE: One view of the chest was acquired. COMPARISON: 02/12/2022 FINDINGS: Surgical changes and devices: None. Lungs and pleura: No pleural effusions or pneumothorax. Lungs are clear. Mediastinum: Mediastinal contours appear normal. Heart size is normal. Bones and chest wall: No suspicious bony lesions. Overlying soft tissues appear unremarkable. IMPRESSION: No acute cardiopulmonary disease process. Reviewed by: Marija Lau MD, PhD on 03/06/2022 10:45 AM PDT Approved by: Marija Lau MD, PhD on 03/06/2022 10:45 AM PDT Station ID: [id number]
[2022-03-06] MEDS ORDERED: ONDANSETRON 4 MG/2 ML VIAL IVP STA ×2 (11:05→18:04)
[2022-03-06] MEDS ORDERED: PANTOPRAZOLE 40 MG VIAL IV STA (11:06)
[2022-03-06] MEDS ORDERED: SODIUM CHLORIDE 0.9% 1,000 ML IV STA (11:06)
[2022-03-06] MEDS ORDERED: PHENobarbital 65 MG/ML VIAL IV STA (11:06)
--- NOTE | 2022-03-06 11:12 | ED Physician Documentation ---
PD HPI CHEST PAIN - Stated complaint Stated Complaint: CHEST PX - Chief complaint Chief Complaint: Cardiac - History obtained from History obtained from: Patient - Additional information Additional information: The patient comes to the emergency department with chief complaint of chest pain. She states it starts In the anterior left chest and shoots through to her back. She states this is sharp pain and seems to come on randomly. The patient denies shortness of breath. No fevers or chills. She has had some body aches and a mild cough. She is also had some rhinorrhea and feels like she may have a cold. She had a negative Covid test 2 days ago. The patient has a longstanding history of alcohol abuse and states she has been on a burrell for the last few days. Her last drink was at 3:00 this morning and she thinks she is done, but is concerned about the potential for alcohol withdrawal and this was part of the reason she came in today. No other complaints at this time. Review of Systems Ten Systems: 10 systems reviewed and negative Constitutional: reports: Reviewed and negative Eyes: reports: Reviewed and negative Ears: reports: Reviewed and negative Nose: reports: Rhinorrhea / runny nose, Congestion Throat: reports: Reviewed and negative Cardiac: reports: Chest pain / pressure. denies: Pedal edema Respiratory: reports: Cough. denies: Dyspnea GI: reports: Reviewed and negative : reports: Reviewed and negative Skin: reports: Reviewed and negative Musculoskeletal: reports: Reviewed and negative Neurologic: reports: Reviewed and negative Psychiatric: reports: Reviewed and negative Endocrine: reports: Reviewed and negative Immunocompromised: reports: Reviewed and negative PD PAST MEDICAL HISTORY - Past Medical History Past Medical History: Yes Cardiovascular: None Respiratory: Asthma Neuro: Peripheral neuropathy, Seizure disorder Endocrine/Autoimmune: None GI: GERD, Hepatitis MAP MOUNTER: None : None HEENT: None Psych: Depression, Anxiety, Bipolar disorder, Other Musculoskeletal: None Derm: None - Past Surgical History Past Surgical History: Yes HEENT: Tonsil/Adenoidectomy - Present Medications Home Medications: Ambulatory Orders Medication Instructions Recorded Confirmed Gabapentin [Neurontin] 300 mg PO BID 07/06/21 03/06/22 hydrOXYzine pamoate [Vistaril] 50 mg PO Q6H PRN 07/06/21 03/06/22 LORazepam [Ativan] 1 mg PO TID PRN #7 tablet 01/20/22 03/06/22 Albuterol Sulf [Ventolin Hfa 1 - 2 puffs INH Q4HR PRN #1 inhaler 02/12/22 03/06/22 Inhaler] - Allergies Allergies/Adverse Reactions: Allergies Allergy/AdvReac Type Severity Reaction Status Date / Time Sulfa (Sulfonamide Allergy Unknown Anaphylaxis Verified 03/06/22 10:07 Antibiotics) adhesive tape AdvReac Unknown Rash Verified 03/06/22 10:07 codeine AdvReac Unknown Nausea Verified 03/06/22 10:07 - Social History Does the pt smoke?: No Smoking Status: Former smoker Does the pt drink ETOH?: Yes ETOH Use: Liquor Does the pt have substance abuse?: Yes Substance Use and Type: Marijuana - Immunizations Immunizations are current?: Yes - POLST Patient has POLST: No PD ED PE NORMAL - Vitals Vital signs reviewed: Yes - General General: Alert and oriented X 3, No acute distress, Well developed/nourished, Other (Slightly disheveled, but is mentally clear.) - HEENT HEENT: Atraumatic, PERRL, EOMI, Moist mucous membranes - Neck Neck: Supple, no meningeal sign - Cardiac Cardiac: RRR, No murmur, Strong equal pulses - Respiratory Respiratory: No respiratory distress, Clear bilaterally - Abdomen Abdomen: Soft, Non tender, Non distended - Derm Derm: Normal color, Warm and dry, No rash - Extremities Extremities: No deformity, No edema, No calf tenderness / cord - Neuro Neuro: Alert and oriented X 3, [employer]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, Normal speech - Psych Psych: Normal mood, Normal affect Results - Vitals Vitals: Vital Signs - 24 hr 03/06/22 03/06/22 03/06/22 10:07 10:34 12:12 Temperature 37 C 36.5 C Heart Rate 117 H 106 H 103 H Respiratory 18 19 15 Rate Blood Pressure 147/84 H 132/79 H 120/69 O2 Saturation 97 97 98 03/06/22 03/06/22 14:54 16:00 Temperature 37.2 C Heart Rate 105 H 90 Respiratory 15 16 Rate Blood Pressure 121/75 115/81 H O2 Saturation 100 98 Oxygen O2 Source Room air - EKG (time done) 1014 Rate: Rate (enter#) (110) Rhythm: Sinus tachycardia [place]: Normal Intervals: Normal [place] QRS: Normal Ischemia: Normal ST segments Compare to prior EKG: Old EKG unavailable Computer interpretation: Agree with computer - Labs Labs: Laboratory Tests 03/06/22 03/06/22 03/06/22 10:21 10:21 10:21 WBC 5.4 RBC 4.15 L Hgb 11.7 L Hct 35.3 L MCV 85.1 MCH 28.2 MCHC 33.1 RDW 13.6 Plt Count 175 MPV 9.7 Neut # (Auto) 3.5 Lymph # (Auto) 1.4 L [place] # (Auto) 0.3 Eos # (Auto) 0.1 Baso # (Auto) 0.0 Absolute Nucleated RBC 0.00 Nucleated RBC % 0.0 Sodium 137 Potassium 3.6 Chloride 98 L Carbon Dioxide 25 Anion Gap 14.0 H BUN 8 Creatinine 0.4 Estimated GFR (MDRD) 184 Glucose 128 H Calcium 9.0 Total Bilirubin 0.9 AST 57 H ALT 31 Alkaline Phosphatase 131 H Troponin I High Sens 3.0 Total Protein 8.1 Albumin 4.5 Globulin 3.6 Albumin/Globulin Ratio 1.3 Lipase 28 Serum HCG, Qual Nasal Adenovirus (PCR) Nasal B. parapertussis DNA (PCR) Nasal Coronavir 229E PCR Nasal Coronavir HKU1 PCR Nasal Coronavir NL63 PCR Nasal Coronavir OC43 PCR Nasal Enterovir/Rhinovir PCR Nasal Influenza B PCR Nasal Influenza A PCR Nasal Parainfluen 1 PCR Nasal Parainfluen 2 PCR Nasal Parainfluen 3 PCR Nasal Parainfluen 4 PCR Nasal RSV (PCR) Nasal B.pertussis DNA PCR Nasal C.pneumoniae (PCR) Hitesh Human Metapneumo PCR Nasal M.pneumoniae (PCR) Nasal SARS-CoV-2 (PCR) Urine Opiates Screen Ur Oxycodone Screen Urine Methadone Screen Ur Propoxyphene Screen Ur Barbiturates Screen Ur Tricyclics Screen Ur Phencyclidine Scrn Ur Amphetamine Screen U Methamphetamines Scrn U Benzodiazepines Scrn Urine Cocaine Screen U Cannabinoids Screen Ethyl Alcohol 03/06/22 03/06/22 03/06/22 10:21 10:21 13:26 WBC RBC Hgb Hct MCV MCH MCHC RDW Plt Count MPV Neut # (Auto) Lymph # (Auto) [place] # (Auto) Eos # (Auto) Baso # (Auto) Absolute Nucleated RBC Nucleated RBC % Sodium Potassium Chloride Carbon Dioxide Anion Gap BUN Creatinine Estimated GFR (MDRD) Glucose Calcium Total Bilirubin AST ALT Alkaline Phosphatase Troponin I High Sens Total Protein Albumin Globulin Albumin/Globulin Ratio Lipase Serum HCG, Qual NEGATIVE Nasal Adenovirus (PCR) Nasal B. parapertussis DNA (PCR) Nasal Coronavir 229E PCR Nasal Coronavir HKU1 PCR Nasal Coronavir NL63 PCR Nasal Coronavir OC43 PCR Nasal Enterovir/Rhinovir PCR Nasal Influenza B PCR Nasal Influenza A PCR Nasal Parainfluen 1 PCR Nasal Parainfluen 2 PCR Nasal Parainfluen 3 PCR Nasal Parainfluen 4 PCR Nasal RSV (PCR) Nasal B.pertussis DNA PCR Nasal C.pneumoniae (PCR) Hitesh Human Metapneumo PCR Nasal M.pneumoniae (PCR) Nasal SARS-CoV-2 (PCR) Urine Opiates Screen NEGATIVE Ur Oxycodone Screen NEGATIVE Urine Methadone Screen NEGATIVE Ur Propoxyphene Screen NEGATIVE Ur Barbiturates Screen POSITIVE H Ur Tricyclics Screen NEGATIVE Ur Phencyclidine Scrn NEGATIVE Ur Amphetamine Screen NEGATIVE U Methamphetamines Scrn NEGATIVE U Benzodiazepines Scrn POSITIVE H Urine Cocaine Screen NEGATIVE U Cannabinoids Screen POSITIVE H Ethyl Alcohol 89.1 03/06/22 15:10 WBC RBC Hgb Hct MCV MCH MCHC RDW Plt Count MPV Neut # (Auto) Lymph # (Auto) [place] # (Auto) Eos # (Auto) Baso # (Auto) Absolute Nucleated RBC Nucleated RBC % Sodium Potassium Chloride Carbon Dioxide Anion Gap BUN Creatinine Estimated GFR (MDRD) Glucose Calcium Total Bilirubin AST ALT Alkaline Phosphatase Troponin I High Sens Total Protein Albumin Globulin Albumin/Globulin Ratio Lipase Serum HCG, Qual Nasal Adenovirus (PCR) NOT DETECTED Nasal B. parapertussis DNA (PCR) NOT DETECTED Nasal Coronavir 229E PCR NOT DETECTED Nasal Coronavir HKU1 PCR NOT DETECTED Nasal Coronavir NL63 PCR NOT DETECTED Nasal Coronavir OC43 PCR NOT DETECTED Nasal Enterovir/Rhinovir PCR NOT DETECTED Nasal Influenza B PCR NOT DETECTED Nasal Influenza A PCR NOT DETECTED Nasal Parainfluen 1 PCR NOT DETECTED Nasal Parainfluen 2 PCR NOT DETECTED Nasal Parainfluen 3 PCR NOT DETECTED Nasal Parainfluen 4 PCR NOT DETECTED Nasal RSV (PCR) NOT DETECTED Nasal B.pertussis DNA PCR NOT DETECTED Nasal C.pneumoniae (PCR) NOT DETECTED Hitesh Human Metapneumo PCR NOT DETECTED Nasal M.pneumoniae (PCR) NOT DETECTED Nasal SARS-CoV-2 (PCR) NOT DETECTED Urine Opiates Screen Ur Oxycodone Screen Urine Methadone Screen Ur Propoxyphene Screen Ur Barbiturates Screen Ur Tricyclics Screen Ur Phencyclidine Scrn Ur Amphetamine Screen U Methamphetamines Scrn U Benzodiazepines Scrn Urine Cocaine Screen U Cannabinoids Screen Ethyl Alcohol - Rads (name of study) Chest x-ray Radiology: Final report received, EMP read indepedently, See rad report (No acute disease) PD MEDICAL DECISION MAKING - ED course Complexity details: reviewed old records, reviewed results, re-evaluated patient, considered differential, d/w patient ED course: The patient was stable in the emergency department, but did have mild tachycardia and I was concerned that she may be in the early stages of alcohol withdrawal. She was given a dose of phenobarbital in the ED, as well as IV fluids, Zofran, and Protonix. Her laboratory studies showed mild anemia no other concerning findings. Initially, when we had talked, we discussed an outpatient plan and the patient seemed completely fine with this. However, her mother arrived in the meantime and when nurse came in to discharge the patient she suddenly stated that actually, she was suicidal and wanted to go jump off a bridge and felt she should go to inpatient treatment, instead. Social work was consulted to see the patient. At this point in time, the patient is being e valuated for inpatient services and is signed out to the oncoming emergency physician, pending final disposition. Departure - Departure Clinical Impression: Costochondral chest pain, Alcohol abuse Alcohol withdrawal Qualifiers: Complication of substance-induced condition: uncomplicated Qualified Code(s): F10.230 - Alcohol dependence with withdrawal, uncomplicated Condition: Stable Prescriptions: chlordiazePOXIDE [Librium] 25 mg PO Q6H #8 cap
[2022-03-06 13:09] LABS: HCG,QUALITATIVE BLOOD NEGATIVE
[2022-03-06 13:37] LABS: MUDS CUTOFF CONCENTRATIONS CUTOFF CONC BELOW:
[2022-03-06 14:03] LABS: AMPHETAMINE SCREEN,URINE NEGATIVE (NEGATIVE); BENZODIAZEPINES SCREEN, URINE POSITIVE (NEGATIVE); COCAINE SCREEN URINE NEGATIVE (NEGATIVE); METHAMPHETAMINES SCREEN, URINE NEGATIVE (NEGATIVE); OPIATE SCREEN, URINE NEGATIVE (NEGATIVE); THC CANNABINOID SCREEN, URINE POSITIVE (NEGATIVE)
[2022-03-06 14:04] LABS: BARBITURATE SCREEN,UR POSITIVE (NEGATIVE); METHADONE SCREEN, URINE NEGATIVE (NEGATIVE); OXYCODONE SCREEN, URINE NEGATIVE (NEGATIVE); PROPOXYPHENE SCREEN, URINE NEGATIVE (NEGATIVE); TRICYCLIC ANTIDEPRESSANT,URINE NEGATIVE (NEGATIVE)
[2022-03-06 16:13] LABS: B. PARAPERTUSSIS- RESP PCR PAN NOT DETECTED; B. PERTUSSIS- RESP PCR PANEL NOT DETECTED; C. PNEUMONIAE- RESP PCR PANEL NOT DETECTED; CORONAVIRUS 229E-RESP PCR NOT DETECTED; CORONAVIRUS HKU1-RESP PCR NOT DETECTED; CORONAVIRUS NL63-RESP PCR NOT DETECTED; CORONAVIRUS OC43-RESP PCR NOT DETECTED; HUMAN METAPNEUMOVIRUS NOT DETECTED; INFLUENZA A- RESP PCR PANEL NOT DETECTED; INFLUENZA B - RESP PCR PANEL NOT DETECTED; M. PNEUMONIAE- RESP PCR PANEL NOT DETECTED; PARAINFLUENZA VIRUS 1 NOT DETECTED; PARAINFLUENZA VIRUS 2 NOT DETECTED; PARAINFLUENZA VIRUS 3 NOT DETECTED; PARAINFLUENZA VIRUS 4 NOT DETECTED; RHINOVIRUS/ENTEROVIRUS NOT DETECTED; RSV- RESP PCR PANEL NOT DETECTED; SARS-CoV-2 -RESP PCR PANEL NOT DETECTED
[2022-03-06] MEDS ORDERED: LORazepam 2 MG/ML VIAL IVP STA (18:42)
--- NOTE | 2022-03-06 19:10 | ED Physician Documentation ---
ED Addendum - Addendum Addendum: 03/06/22 19:[address] Lucero at shift change. Cooperative on my shift but did need some Ativan for anxiety. She was accepted to [facility] by Zaid Potter. COBRA's are completed. She is stable for transport. Disposition transfer to psychiatric facility Condition: Stable
[2022-03-06 20:07] VITALS: BP 130/78
== END 2022-03-06 20:30 ==
LOC: ED 10:03
DX: Z87.891 Personal history of nicotine dependence (principal); F10.10 Alcohol abuse, uncomplicated; Y90.4 Blood alcohol level of 80-99 mg/100 ml; M94.0 Chondrocostal junction syndrome [Tietze]; Z20.822 Contact with and (suspected) exposure to COVID-19
CPT/HCPCS: 36415; 71045; 80053; 80306; 80320; 83690; 84484; 84703; 85025; 87633; 93005; 96361; 96374; 96375; 96376; 99285; J2060

== ENCOUNTER 2023-01-27 03:33 | Outpatient (CLI) | payer MEDICAID | END 2023-01-27 04:27 | disposition critical access hospital (66) | LOC: EMS 03:33 | DX: R07.9 Chest pain, unspecified (principal); R05.9 Cough, unspecified; J02.9 Acute pharyngitis, unspecified; R10.811 Right upper quadrant abdominal tenderness; R23.8 Other skin changes | CPT/HCPCS: A0425; A0429; A0999 ==

== ENCOUNTER 2023-01-27 04:13 | Emergency (ER) | payer MEDICAID ==
--- OUTSIDE RECORDS SUMMARY | 2023-01-27 04:31 | EXTERNAL MEDICAL SUMMARY RPT | Continuity of Care Document ---
:1990 Author Organization [facility] Address [address] [place] [address] Phone Care Team Providers Name Role Phone Suzie Scott Unavailable Unavailable Allergies and Intolerances date description facility type (no date) [facility] (unknown) (no date) Sulfa (Sulfonamide Antibiotics[facility] adhesive tape [facility] (unknown) (no date) codeine [facility] (unknown) (no date) medroxyprogesterone [facility] (unknown) Encounters No information. Functional Status No information. Immunizations No information. Medications No information. Problems date description facility 2023-01-16 16:52 Unspecified abdominal pain [facility] 2023-01-17 01:49 Unspecified abdominal pain [facility] 2023-01-26 00:00 [facility] Procedures No information. Results/Labs test date author facility value unit interpret ation Result panel 1 (unknown) (no date) [facility] Result panel 2 (unknown) (no date) (unknown[facility]) Result panel 3 (unknown) (no date) (unknown[facility] Result panel 4 (unknown) (no date) (unknown[facility]) Result panel 5 (unknown) (no date) (unknown[facility]) Result panel 6 (unknown) (no date) (unknown[facility]) Result panel 7 (unknown) (no date) (unknown[facility]) Result panel 8 (unknown) (no date) (unknown[facility]) Result panel 9 (unknown) (no date) (unknown[facility]) Result panel 10 (unknown) (no date) (unknown[facility]) Result panel 11 (unknown) (no date) (unknown[facility]) Result panel 12 (unknown) (no date) (unknown[facility]) Result panel 13 (unknown) (no date) (unknown[facility]) Result panel 14 (unknown) (no date) (unknown[facility]) Result panel 15 (unknown) (no date) (unknown[facility]) Result panel 16 (unknown) (no date) (unknown[facility]) Result panel 17 (unknown) (no date) (unknown[facility]) Result panel 18 (unknown) (no date) (unknown[facility]) Result panel 19 (unknown) (no date) (unknown[facility]) Result panel 20 (unknown) (no date) (unknown[facility]) Result panel 21 (unknown) (no date) (unknown[facility]) Result panel 22 (unknown) (no date) (unknown[facility]) Result panel 23 (unknown) (no date) (unknown[facility]) Result panel 24 (unknown) (no date) (unknown) [facility]) Result panel 25 (unknown) (no date) (unknown[facility]) Result panel 26 (unknown) (no date) (unknown[facility]) Result panel 27 (unknown) (no date) (unknown[facility]) Result panel 28 (unknown) (no date) (unknown[facility]) Result panel 29 (unknown) (no date) (unknown[facility]) Result panel 30 (unknown) (no date) (unknown[facility] Result panel 31 (unknown) (no (unknown) (unknown) (no value) (units (unk nown) date) unknown) (unknown) (no (unknown) (unknown) [id number] (units (unkno wn) date) unknown) (unknown) (no (unknown) (unknown) 01/16/23 (units (unkno wn) date) unknown) (unknown) (no (unknown) (unknown) 17:05 (units (unkno wn) date) unknown) (unknown) (no (unknown) (unknown) 01/11/2023. She has not (u nits (unknown) date) taken any medications for unkn own) pain relief and reports a 01/02 (unknown) (no (unknown) (unknown) 652 (units (unkno wn) date) unknown) (unknown) (no (unknown) (unknown) Age/Sex: 32 / F Date of ( units (unknown) date) Service: unknown) (unknown) (no (unknown) (unknown) Allergies (units (unkn own) date) unknown) (unknown) (no (unknown) (unknown) [facility] (units (unknown) date) unknown) (unknown) (no (unknown) (unknown) [place] [id number] (unit s (unknown) date) unknown) (unknown) (no (unknown) (unknown) Anesthesia (units (unk nown) date) unknown) (unknown) (no (unknown) (unknown) Assessment + Plan (units (unknown) date) unknown) (unknown) (no (unknown) (unknown) Attending Dr: Mable (u nits (unknown) date) Paulina Lombardi unknown) (unknown) (no (unknown) (unknown) BMI 24.2 (units (unkno wn) date) unknown) (unknown) (no (unknown) (unknown) BP 118/69 (units (unkn own) date) unknown) (unknown) (no (unknown) (unknown) Bartholin's gland abscess (units (unknown) date) unknown) (unknown) (no (unknown) (unknown) Blood Pressure Location Lt (units (unknown) date) brachial unknown) (unknown) (no (unknown) (unknown) Cataplexy (units (unkn own) date) unknown) (unknown) (no (unknown) (unknown) Contact dermatitis (units (unknown) date) unknown) (unknown) (no (unknown) (unknown) : 1990 (units (unknown) date) Acct:[id number] unknown) (unknown) (no (unknown) (unknown) Dept at . (u nits (unknown) date) unknown) (unknown) (no (unknown) (unknown) Diabetes mellitus (units (unknown) date) unknown) (unknown) (no (unknown) (unknown) Documented By: (units (unknown) date) Mable Gallardo P.A-C unknown ) 01/16/23 1 (unknown) (no (unknown) (unknown) Draft (units (unkno wn) date) unknown) (unknown) (no (unknown) (unknown) Family History (Reviewed (units (unknown) date) 07/08/20 @ 16:16 by Karen Junior DO) (unknown) (no (unknown) (unknown) Father Cancer (units ( unknown) date) unknown) (unknown) (no (unknown) (unknown) Grandfather Cancer (units (unknown) date) unknown) (unknown) (no (unknown) (unknown) Grandmother Cancer (units (unknown) date) unknown) (unknown) (no (unknown) (unknown) Hearing loss in right ear (units (unknown) date) unknown) (unknown) (no (unknown) (unknown) Height 5 ft 6 in (units (unknown) date) unknown) (unknown) (no (unknown) (unknown) Hepatic steatosis (units (unknown) date) unknown) (unknown) (no (unknown) (unknown) History of (units (unk nown) date) esophagogastroduodenoscopy unk nown) (EGD) (unknown) (no (unknown) (unknown) History of heart disease (units (unknown) date) unknown) (unknown) (no (unknown) (unknown) History of tonsillectomy (units (unknown) date) (-2004) unknown) (unknown) (no (unknown) (unknown) Impacted cerumen of right (units (unknown) date) ear unknown) (unknown) (no (unknown) (unknown) Ingrown toenail of right (units (unknown) date) foot unknown) (unknown) (no (unknown) (unknown) Intake Note: (units (u nknown) date) unknown) (unknown) (no (unknown) (unknown) Intake (units (unkno wn) date) unknown) (unknown) (no (unknown) (unknown) Last Menstural Cycle + (u nits (unknown) date) Details unknown) (unknown) (no (unknown) (unknown) Loc: [facility] (units (unkno wn) date) unknown) (unknown) (no (unknown) (unknown) Medical History (Updated (units (unknown) date) 07/23/20 @ 00:00 by ) unknown) (unknown) (no (unknown) (unknown) Mother Cancer (units ( unknown) date) unknown) (unknown) (no (unknown) (unknown) Narcolepsy and cataplexy (units (unknown) date) unknown) (unknown) (no (unknown) (unknown) Orders (units (unkno wn) date) unknown) (unknown) (no (unknown) (unknown) Orders: (units (unkno wn) date) unknown) (unknown) (no (unknown) (unknown) Other Menstrual Period: ( units (unknown) date) Other (DUB ) unknown) (unknown) (no (unknown) (unknown) Oxygen Delivery Method (u nits (unknown) date) room air unknown) (unknown) (no (unknown) (unknown) PFSH (units (unkno wn) date) unknown) (unknown) (no (unknown) (unknown) POC Urine Dip Today R10.9 (units (unknown) date) - Unspecified abdominal unknow n) pain (unknown) (no (unknown) (unknown) Patient: Crowley,Nadya A (units (unknown) date) MR#: [id number] unknown) (unknown) (no (unknown) (unknown) Peptic ulcer disease (uni ts (unknown) date) unknown) (unknown) (no (unknown) (unknown) Perioral dermatitis (unit s (unknown) date) unknown) (unknown) (no (unknown) (unknown) Position Sitting (units (unknown) date) unknown) (unknown) (no (unknown) (unknown) Pt came to the [facility] today ( units (unknown) date) with a chief complaint of unkn own) LLQ pain. Pt was at work this (unknown) (no (unknown) (unknown) Pulse 69 (units (unkno wn) date) unknown) (unknown) (no (unknown) (unknown) Pulse Oximetry (%) 98 (un its (unknown) date) unknown) (unknown) (no (unknown) (unknown) Pulse Source Monitor (uni ts (unknown) date) unknown) (unknown) (no (unknown) (unknown) Reason For Visit (units (unknown) date) unknown) (unknown) (no (unknown) (unknown) Respiration 20 (units (unknown) date) unknown) (unknown) (no (unknown) (unknown) Seizure disorder (units (unknown) date) unknown) (unknown) (no (unknown) (unknown) Signed By: (units ([place] nown) date) unknown) (unknown) (no (unknown) (unknown) Smoking Status: Never (un its (unknown) date) smoker unknown) (unknown) (no (unknown) (unknown) Social History (units (unknown) date) unknown) (unknown) (no (unknown) (unknown) Sulfa (Sulfonamide (units (unknown) date) Antibiotics) Allergy unknown) (Verified 07/08/20 15:13) (unknown) (no (unknown) (unknown) Surgical History (Reviewed (units (unknown) date) 07/08/20 @ 16:16 by Karen Junior DO) (unknown) (no (unknown) (unknown) Temp 98.9 F (units (un known) date) unknown) (unknown) (no (unknown) (unknown) Temp Source Skin (units (unknown) date) unknown) (unknown) (no (unknown) (unknown) This note may have been ( units (unknown) date) all or partially generated unk nown) using voice recognition (unknown) (no (unknown) (unknown) Tobacco + Substance Use ( units (unknown) date) unknown) (unknown) (no (unknown) (unknown) Tobacco Status (units (unknown) date) unknown) (unknown) (no (unknown) (unknown) Urine Culture Today R10.9 (units (unknown) date) - Unspecified abdominal unknow n) pain (unknown) (no (unknown) (unknown) Visit Reasons: abd (units (unknown) date) cramping unknown) (unknown) (no (unknown) (unknown) Vitals (units (unkno wn) date) unknown) (unknown) (no (unknown) (unknown) Walk In Clinic Visit (uni ts (unknown) date) unknown) (unknown) (no (unknown) (unknown) Weight 150 lb (units ( unknown) date) unknown) (unknown) (no (unknown) (unknown) active. (units (unkno wn) date) unknown) (unknown) (no (unknown) (unknown) adhesive tape Allergy (un its (unknown) date) (Mild, Verified 07/08/20 unkno wn) 15:13) (unknown) (no (unknown) (unknown) afternoon and had a normal (units (unknown) date) BM. After she had a BM she unk nown) reported that she felt (unknown) (no (unknown) (unknown) alcohol intake: never (un its (unknown) date) unknown) (unknown) (no (unknown) (unknown) and intense. Pt stated that (units (unknown) date) the pain lasted for about unkn own) an hour and a half and she (unknown) (no (unknown) (unknown) and stated that it felt ( units (unknown) date) similar to that and the unknow n) pain was 'mostly in the front (unknown) (no (unknown) (unknown) codeine Allergy (Verified (units (unknown) date) 07/08/20 15:13) unknown) (unknown) (no (unknown) (unknown) have occurred. If there ( units (unknown) date) are any questions, please unkn own) contact the Medical Records (unknown) (no (unknown) (unknown) household members: spouse (units (unknown) date) and children unknown) (unknown) (no (unknown) (unknown) itching, swelling (units (unknown) date) unknown) (unknown) (no (unknown) (unknown) may occur. Occasional (un its (unknown) date) wrong-word or 'sound-alike' un known) substitutions may have (unknown) (no (unknown) (unknown) medroxyprogesterone (unit s (unknown) date) Allergy (Verified 07/08/20 unk nown) 15:13) (unknown) (no (unknown) (unknown) near where her ovaries are (units (unknown) date) located', but noted that unkno wn) she hasn't had one in a long (unknown) (no (unknown) (unknown) occurred due to the (unit s (unknown) date) inherent limitations of unknow n) voice recognition software. Please (unknown) (no (unknown) (unknown) pain. Pt stated that she ( units (unknown) date) does not think there is any un known) chance she is , but (unknown) (no (unknown) (unknown) provided a urine specimen (units (unknown) date) for POC and agreed to a unknow n) urine HCG. Bowel sounds are (unknown) (no (unknown) (unknown) read the note carefully ( units (unknown) date) and recognize, using unknown) context, where these substitutions (unknown) (no (unknown) (unknown) really hot and dizzy and (units (unknown) date) had 10/10 abdominal pain unkno wn) that she described as sharp (unknown) (no (unknown) (unknown) second hand exposure: No (units (unknown) date) unknown) (unknown) (no (unknown) (unknown) software. Although every (units (unknown) date) effort is made to edit unknown ) content, retail pharmacist errors (unknown) (no (unknown) (unknown) substance use type: does (units (unknown) date) not use unknown) (unknown) (no (unknown) (unknown) time. Pt denies fever, (u nits (unknown) date) n/v, SOB, and chest pain. unkn own) Her last menstrual period was (unknown) (no (unknown) (unknown) used stretching techniques (units (unknown) date) and yoga poses to try and unkn own) relieve what she suspected (unknown) (no (unknown) (unknown) were gas pains. She stated (units (unknown) date) that with positional unknown) changes the pain kept getting (unknown) (no (unknown) (unknown) worse and she felt like she (units (unknown) date) was going to pass out. She unk nown) has a hx of ovarian cysts Result panel 32 (unknown) (no (unknown) (unknown) (no value) (units (unk nown) date) unknown) (unknown) (no (unknown) (unknown) [id number] (units (unkno wn) date) unknown) (unknown) (no (unknown) (unknown) 01/16/23 (units (unkno wn) date) unknown) (unknown) (no (unknown) (unknown) 17:05 (units (unkno wn) date) unknown) (unknown) (no (unknown) (unknown) 01/11/2023. She has not (u nits (unknown) date) taken any medications for unkn own) pain relief and reports a 01/02 (unknown) (no (unknown) (unknown) 652 (units (unkno wn) date) unknown) (unknown) (no (unknown) (unknown) Age/Sex: 32 / F Date of ( units (unknown) date) Service: unknown) (unknown) (no (unknown) (unknown) Allergies (units (unkn own) date) unknown) (unknown) (no (unknown) (unknown) [facility] (units (unknown) date) unknown) (unknown) (no (unknown) (unknown) [place] [address] (unit s (unknown) date) unknown) (unknown) (no (unknown) (unknown) Anesthesia (units (unk nown) date) unknown) (unknown) (no (unknown) (unknown) Assessment + Plan (units (unknown) date) unknown) (unknown) (no (unknown) (unknown) Attending Dr: Mable (u nits (unknown) date) Paulina Lombardi unknown) (unknown) (no (unknown) (unknown) BMI 24.2 (units (unkno wn) date) unknown) (unknown) (no (unknown) (unknown) BP 118/69 (units (unkn own) date) unknown) (unknown) (no (unknown) (unknown) Bartholin's gland abscess (units (unknown) date) unknown) (unknown) (no (unknown) (unknown) Blood Pressure Location Lt (units (unknown) date) brachial unknown) (unknown) (no (unknown) (unknown) Cataplexy (units (unkn own) date) unknown) (unknown) (no (unknown) (unknown) Contact dermatitis (units (unknown) date) unknown) (unknown) (no (unknown) (unknown) : 1990 (units (unknown) date) Acct:[id number] unknown) (unknown) (no (unknown) (unknown) Dept at . (u nits (unknown) date) unknown) (unknown) (no (unknown) (unknown) Diabetes mellitus (units (unknown) date) unknown) (unknown) (no (unknown) (unknown) Documented By: (units (unknown) date) Mable Gallardo P.A-C unknown ) 01/16/23 1 (unknown) (no (unknown) (unknown) Draft (units (unkno wn) date) unknown) (unknown) (no (unknown) (unknown) Family History (Reviewed (units (unknown) date) 07/08/20 @ 16:16 by Karen Junior DO) (unknown) (no (unknown) (unknown) Father Cancer (units ( unknown) date) unknown) (unknown) (no (unknown) (unknown) Grandfather Cancer (units (unknown) date) unknown) (unknown) (no (unknown) (unknown) Grandmother Cancer (units (unknown) date) unknown) (unknown) (no (unknown) (unknown) Hearing loss in right ear (units (unknown) date) unknown) (unknown) (no (unknown) (unknown) Height 5 ft 6 in (units (unknown) date) unknown) (unknown) (no (unknown) (unknown) Hepatic steatosis (units (unknown) date) unknown) (unknown) (no (unknown) (unknown) History of (units (unk nown) date) esophagogastroduodenoscopy unk nown) (EGD) (unknown) (no (unknown) (unknown) History of heart disease (units (unknown) date) unknown) (unknown) (no (unknown) (unknown) History of tonsillectomy (units (unknown) date) (-2004) unknown) (unknown) (no (unknown) (unknown) Impacted cerumen of right (units (unknown) date) ear unknown) (unknown) (no (unknown) (unknown) Ingrown toenail of right (units (unknown) date) foot unknown) (unknown) (no (unknown) (unknown) Intake Note: (units (u nknown) date) unknown) (unknown) (no (unknown) (unknown) Intake (units (unkno wn) date) unknown) (unknown) (no (unknown) (unknown) Last Menstural Cycle + (u nits (unknown) date) Details unknown) (unknown) (no (unknown) (unknown) Loc: [facility] (units (unkno wn) date) unknown) (unknown) (no (unknown) (unknown) Medical History (Updated (units (unknown) date) 07/23/20 @ 00:00 by ) unknown) (unknown) (no (unknown) (unknown) Mother Cancer (units ( unknown) date) unknown) (unknown) (no (unknown) (unknown) Narcolepsy and cataplexy (units (unknown) date) unknown) (unknown) (no (unknown) (unknown) Orders (units (unkno wn) date) unknown) (unknown) (no (unknown) (unknown) Orders: (units (unkno wn) date) unknown) (unknown) (no (unknown) (unknown) Other Menstrual Period: ( units (unknown) date) Other (DUB ) unknown) (unknown) (no (unknown) (unknown) Oxygen Delivery Method (u nits (unknown) date) room air unknown) (unknown) (no (unknown) (unknown) PFSH (units (unkno wn) date) unknown) (unknown) (no (unknown) (unknown) POC Urine Dip Today R10.9 (units (unknown) date) - Unspecified abdominal unknow n) pain (unknown) (no (unknown) (unknown) Patient: Nadya Crowley (units (unknown) date) MR#: [id number] unknown) (unknown) (no (unknown) (unknown) Peptic ulcer disease (uni ts (unknown) date) unknown) (unknown) (no (unknown) (unknown) Perioral dermatitis (unit s (unknown) date) unknown) (unknown) (no (unknown) (unknown) Position Sitting (units (unknown) date) unknown) (unknown) (no (unknown) (unknown) Pt came to the [facility] today ( units (unknown) date) with a chief complaint of unkn own) LLQ pain. Pt was at work this (unknown) (no (unknown) (unknown) Pulse 69 (units (unkno wn) date) unknown) (unknown) (no (unknown) (unknown) Pulse Oximetry (%) 98 (un its (unknown) date) unknown) (unknown) (no (unknown) (unknown) Pulse Source Monitor (uni ts (unknown) date) unknown) (unknown) (no (unknown) (unknown) Reason For Visit (units (unknown) date) unknown) (unknown) (no (unknown) (unknown) Respiration 20 (units (unknown) date) unknown) (unknown) (no (unknown) (unknown) Seizure disorder (units (unknown) date) unknown) (unknown) (no (unknown) (unknown) Signed By: (units (unk nown) date) unknown) (unknown) (no (unknown) (unknown) Smoking Status: Never (un its (unknown) date) smoker unknown) (unknown) (no (unknown) (unknown) Social History (units (unknown) date) unknown) (unknown) (no (unknown) (unknown) Sulfa (Sulfonamide (units (unknown) date) Antibiotics) Allergy unknown) (Verified 07/08/20 15:13) (unknown) (no (unknown) (unknown) Surgical History (Reviewed (units (unknown) date) 07/08/20 @ 16:16 by Karen salgado) DO [place]) (unknown) (no (unknown) (unknown) Temp 98.9 F (units (un known) date) unknown) (unknown) (no (unknown) (unknown) Temp Source Skin (units (unknown) date) unknown) (unknown) (no (unknown) (unknown) This note may have been ( units (unknown) date) all or partially generated devin salgado) using voice recognition (unknown) (no (unknown) (unknown) Tobacco + Substance Use ( units (unknown) date) unknown) (unknown) (no (unknown) (unknown) Tobacco Status (units (unknown) date) unknown) (unknown) (no (unknown) (unknown) Urine Culture Today R10.9 (units (unknown) date) - Unspecified abdominal unknow n) pain (unknown) (no (unknown) (unknown) Visit Reasons: abd (units (unknown) date) cramping unknown) (unknown) (no (unknown) (unknown) Vitals (units (unkno wn) date) unknown) (unknown) (no (unknown) (unknown) Walk In Clinic Visit (uni ts (unknown) date) unknown) (unknown) (no (unknown) (unknown) Weight 150 lb (units ( unknown) date) unknown) (unknown) (no (unknown) (unknown) active. (units (unkno wn) date) unknown) (unknown) (no (unknown) (unknown) adhesive tape Allergy (un its (unknown) date) (Mild, Verified 07/08/20 unkno wn) 15:13) (unknown) (no (unknown) (unknown) afternoon and had a normal (units (unknown) date) BM. After she had a BM she unk nown) reported that she felt (unknown) (no (unknown) (unknown) alcohol intake: never (un its (unknown) date) unknown) (unknown) (no (unknown) (unknown) and intense. Pt stated that (units (unknown) date) the pain lasted for about unkn own) an hour and a half and she (unknown) (no (unknown) (unknown) and stated that it felt ( units (unknown) date) similar to that and the unknow n) pain was 'mostly in the front (unknown) (no (unknown) (unknown) codeine Allergy (Verified (units (unknown) date) 07/08/20 15:13) unknown) (unknown) (no (unknown) (unknown) have occurred. If there ( units (unknown) date) are any questions, please unkn own) contact the Medical Records (unknown) (no (unknown) (unknown) household members: spouse (units (unknown) date) and children unknown) (unknown) (no (unknown) (unknown) itching, swelling (units (unknown) date) unknown) (unknown) (no (unknown) (unknown) may occur. Occasional (un its (unknown) date) wrong-word or 'sound-alike' un known) substitutions may have (unknown) (no (unknown) (unknown) medroxyprogesterone (unit s (unknown) date) Allergy (Verified 07/08/20 unk nown) 15:13) (unknown) (no (unknown) (unknown) near where her ovaries are (units (unknown) date) located', but noted that unkno wn) she hasn't had one in a long (unknown) (no (unknown) (unknown) occurred due to the (unit s (unknown) date) inherent limitations of unknow n) voice recognition software. Please (unknown) (no (unknown) (unknown) pain. Pt stated that she ( units (unknown) date) does not think there is any un known) chance she is , but (unknown) (no (unknown) (unknown) provided a urine specimen (units (unknown) date) for POC and agreed to a unknow n) urine HCG. Bowel sounds are (unknown) (no (unknown) (unknown) read the note carefully ( units (unknown) date) and recognize, using unknown) context, where these substitutions (unknown) (no (unknown) (unknown) really hot and dizzy and (units (unknown) date) had 10/10 abdominal pain unkno wn) that she described as sharp (unknown) (no (unknown) (unknown) second hand exposure: No (units (unknown) date) unknown) (unknown) (no (unknown) (unknown) software. Although every (units (unknown) date) effort is made to edit unknown ) content, retail pharmacist errors (unknown) (no (unknown) (unknown) substance use type: does (units (unknown) date) not use unknown) (unknown) (no (unknown) (unknown) time. Pt denies fever, (u nits (unknown) date) n/v, SOB, and chest pain. unkn own) Her last menstrual period was (unknown) (no (unknown) (unknown) used stretching techniques (units (unknown) date) and yoga poses to try and unkn own) relieve what she suspected (unknown) (no (unknown) (unknown) were gas pains. She stated (units (unknown) date) that with positional unknown) changes the pain kept getting (unknown) (no (unknown) (unknown) worse and she felt like she (units (unknown) date) was going to pass out. She unk nown) has a hx of ovarian cysts Result panel 33 (unknown) (no (unknown) (unknown) (no value) (units (unk nown) date) unknown) (unknown) (no (unknown) (unknown) [id number] (units (unkno wn) date) unknown) (unknown) (no (unknown) (unknown) 01/16/23 (units (unkno wn) date) unknown) (unknown) (no (unknown) (unknown) 17:05 (units (unkno wn) date) unknown) (unknown) (no (unknown) (unknown) 01/11/2023. She has not (u nits (unknown) date) taken any medications for unkn own) pain relief and reports a 01/02 (unknown) (no (unknown) (unknown) 652 (units (unkno wn) date) unknown) (unknown) (no (unknown) (unknown) Age/Sex: 32 / F Date of ( units (unknown) date) Service: unknown) (unknown) (no (unknown) (unknown) Allergies (units (unkn own) date) unknown) (unknown) (no (unknown) (unknown) [facility] (units (unknown) date) unknown) (unknown) (no (unknown) (unknown) [place] [address] (unit s (unknown) date) unknown) (unknown) (no (unknown) (unknown) Anesthesia (units (unk nown) date) unknown) (unknown) (no (unknown) (unknown) Assessment + Plan (units (unknown) date) unknown) (unknown) (no (unknown) (unknown) Attending Dr: Mable (u nits (unknown) date) Paulina Lombardi unknown) (unknown) (no (unknown) (unknown) BMI 24.2 (units (unkno wn) date) unknown) (unknown) (no (unknown) (unknown) BP 118/69 (units (unkn own) date) unknown) (unknown) (no (unknown) (unknown) Bartholin's gland abscess (units (unknown) date) unknown) (unknown) (no (unknown) (unknown) Blood Pressure Location Lt (units (unknown) date) brachial unknown) (unknown) (no (unknown) (unknown) Cataplexy (units (unkn own) date) unknown) (unknown) (no (unknown) (unknown) Contact dermatitis (units (unknown) date) unknown) (unknown) (no (unknown) (unknown) : 1990 (units (unknown) date) Acct:[id number] unknown) (unknown) (no (unknown) (unknown) Dept at . (u nits (unknown) date) unknown) (unknown) (no (unknown) (unknown) Diabetes mellitus (units (unknown) date) unknown) (unknown) (no (unknown) (unknown) Documented By: (units (unknown) date) Mable Gallardo P.A-C unknown ) 01/16/23 1 (unknown) (no (unknown) (unknown) Draft (units (unkno wn) date) unknown) (unknown) (no (unknown) (unknown) Family History (Reviewed (units (unknown) date) 07/08/20 @ 16:16 by Karen unk nown) DO [place]) (unknown) (no (unknown) (unknown) Father Cancer (units ( unknown) date) unknown) (unknown) (no (unknown) (unknown) Grandfather Cancer (units (unknown) date) unknown) (unknown) (no (unknown) (unknown) Grandmother Cancer (units (unknown) date) unknown) (unknown) (no (unknown) (unknown) Hearing loss in right ear (units (unknown) date) unknown) (unknown) (no (unknown) (unknown) Height 5 ft 6 in (units (unknown) date) unknown) (unknown) (no (unknown) (unknown) Hepatic steatosis (units (unknown) date) unknown) (unknown) (no (unknown) (unknown) History of (units (unk nown) date) esophagogastroduodenoscopy unk nown) (EGD) (unknown) (no (unknown) (unknown) History of heart disease (units (unknown) date) unknown) (unknown) (no (unknown) (unknown) History of tonsillectomy (units (unknown) date) (-2003) unknown) (unknown) (no (unknown) (unknown) Impacted cerumen of right (units (unknown) date) ear unknown) (unknown) (no (unknown) (unknown) Ingrown toenail of right (units (unknown) date) foot unknown) (unknown) (no (unknown) (unknown) Intake Note: (units (u nknown) date) unknown) (unknown) (no (unknown) (unknown) Intake performed by: (uni ts (unknown) date) Rosemary Patricio unknown) (unknown) (no (unknown) (unknown) Intake (units (unkno wn) date) unknown) (unknown) (no (unknown) (unknown) Intake- Clincial Staff (u nits (unknown) date) unknown) (unknown) (no (unknown) (unknown) Last Menstural Cycle + (u nits (unknown) date) Details unknown) (unknown) (no (unknown) (unknown) Loc: [facility] (units (unkno wn) date) unknown) (unknown) (no (unknown) (unknown) Medical History (Updated (units (unknown) date) 07/23/20 @ 00:00 by ) unknown) (unknown) (no (unknown) (unknown) Mother Cancer (units ( unknown) date) unknown) (unknown) (no (unknown) (unknown) Narcolepsy and cataplexy (units (unknown) date) unknown) (unknown) (no (unknown) (unknown) Orders (units (unkno wn) date) unknown) (unknown) (no (unknown) (unknown) Orders: (units (unkno wn) date) unknown) (unknown) (no (unknown) (unknown) Other Menstrual Period: ( units (unknown) date) Other (DUB ) unknown) (unknown) (no (unknown) (unknown) Oxygen Delivery Method (u nits (unknown) date) room air unknown) (unknown) (no (unknown) (unknown) PFSH (units (unkno wn) date) unknown) (unknown) (no (unknown) (unknown) POC Urine Dip Today R10.9 (units (unknown) date) - Unspecified abdominal unknow n) pain (unknown) (no (unknown) (unknown) Patient: Nadya Crowley (units (unknown) date) MR#: [id number] unknown) (unknown) (no (unknown) (unknown) Peptic ulcer disease (uni ts (unknown) date) unknown) (unknown) (no (unknown) (unknown) Perioral dermatitis (unit s (unknown) date) unknown) (unknown) (no (unknown) (unknown) Position Sitting (units (unknown) date) unknown) (unknown) (no (unknown) (unknown) Pt came to the [facility] today ( units (unknown) date) with a chief complaint of unkn own) LLQ pain. Pt was at work this (unknown) (no (unknown) (unknown) Pulse 69 (units (unkno wn) date) unknown) (unknown) (no (unknown) (unknown) Pulse Oximetry (%) 98 (un its (unknown) date) unknown) (unknown) (no (unknown) (unknown) Pulse Source Monitor (uni ts (unknown) date) unknown) (unknown) (no (unknown) (unknown) Reason For Visit (units (unknown) date) unknown) (unknown) (no (unknown) (unknown) Respiration 20 (units (unknown) date) unknown) (unknown) (no (unknown) (unknown) Seizure disorder (units (unknown) date) unknown) (unknown) (no (unknown) (unknown) Signed By: (units (unk nown) date) unknown) (unknown) (no (unknown) (unknown) Smoking Status: Never (un its (unknown) date) smoker unknown) (unknown) (no (unknown) (unknown) Social History (units (unknown) date) unknown) (unknown) (no (unknown) (unknown) Sulfa (Sulfonamide (units (unknown) date) Antibiotics) Allergy unknown) (Verified 07/08/20 15:13) (unknown) (no (unknown) (unknown) Surgical History (Reviewed (units (unknown) date) 07/08/20 @ 16:16 by Karen salgado) DO [place]) (unknown) (no (unknown) (unknown) Temp 98.9 F (units (un known) date) unknown) (unknown) (no (unknown) (unknown) Temp Source Skin (units (unknown) date) unknown) (unknown) (no (unknown) (unknown) This note may have been ( units (unknown) date) all or partially generated devin salgado) using voice recognition (unknown) (no (unknown) (unknown) Tobacco + Substance Use ( units (unknown) date) unknown) (unknown) (no (unknown) (unknown) Tobacco Status (units (unknown) date) unknown) (unknown) (no (unknown) (unknown) Urine Culture Today R10.9 (units (unknown) date) - Unspecified abdominal unknow n) pain (unknown) (no (unknown) (unknown) Visit Reasons: abd (units (unknown) date) cramping unknown) (unknown) (no (unknown) (unknown) Vitals (units (unkno wn) date) unknown) (unknown) (no (unknown) (unknown) Walk In Clinic Visit (uni ts (unknown) date) unknown) (unknown) (no (unknown) (unknown) Weight 150 lb (units ( unknown) date) unknown) (unknown) (no (unknown) (unknown) active x4. (units (unk nown) date) unknown) (unknown) (no (unknown) (unknown) adhesive tape Allergy (un its (unknown) date) (Mild, Verified 07/08/20 unkno wn) 15:13) (unknown) (no (unknown) (unknown) afternoon and had a normal (units (unknown) date) BM. After she had a BM she unk nown) reported that she felt (unknown) (no (unknown) (unknown) alcohol intake: never (un its (unknown) date) unknown) (unknown) (no (unknown) (unknown) and intense. Pt stated that (units (unknown) date) the pain lasted for about unkn own) an hour and a half and she (unknown) (no (unknown) (unknown) and stated that it felt ( units (unknown) date) similar to that and the unknow n) pain was 'mostly in the front (unknown) (no (unknown) (unknown) codeine Allergy (Verified (units (unknown) date) 07/08/20 15:13) unknown) (unknown) (no (unknown) (unknown) have occurred. If there ( units (unknown) date) are any questions, please unkn own) contact the Medical Records (unknown) (no (unknown) (unknown) household members: spouse (units (unknown) date) and children unknown) (unknown) (no (unknown) (unknown) itching, swelling (units (unknown) date) unknown) (unknown) (no (unknown) (unknown) may occur. Occasional (un its (unknown) date) wrong-word or 'sound-alike' un known) substitutions may have (unknown) (no (unknown) (unknown) medroxyprogesterone (unit s (unknown) date) Allergy (Verified 07/08/20 unk nown) 15:13) (unknown) (no (unknown) (unknown) near where my ovaries are (units (unknown) date) located', but noted that unkno wn) she hasn't had one in a long (unknown) (no (unknown) (unknown) occurred due to the (unit s (unknown) date) inherent limitations of unknow n) voice recognition software. Please (unknown) (no (unknown) (unknown) pain. Pt stated that she ( units (unknown) date) does not think there is any un known) chance she is , but (unknown) (no (unknown) (unknown) provided a urine specimen (units (unknown) date) for POC and agreed to a unknow n) urine HCG. Bowel sounds are (unknown) (no (unknown) (unknown) read the note carefully ( units (unknown) date) and recognize, using unknown) context, where these substitutions (unknown) (no (unknown) (unknown) really hot and dizzy and (units (unknown) date) had 10/10 abdominal pain unkno wn) that she described as sharp (unknown) (no (unknown) (unknown) second hand exposure: No (units (unknown) date) unknown) (unknown) (no (unknown) (unknown) software. Although every (units (unknown) date) effort is made to edit unknown ) content, retail pharmacist errors (unknown) (no (unknown) (unknown) substance use type: does (units (unknown) date) not use unknown) (unknown) (no (unknown) (unknown) time. Pt denies fever, (u nits (unknown) date) n/v, SOB, and chest pain. unkn own) Her last menstrual period was (unknown) (no (unknown) (unknown) used stretching techniques (units (unknown) date) and yoga poses to try and unkn own) relieve what she suspected (unknown) (no (unknown) (unknown) were gas pains. She stated (units (unknown) date) that with positional unknown) changes the pain kept getting (unknown) (no (unknown) (unknown) worse and she felt like she (units (unknown) date) was going to pass out. She unk nown) has a hx of ovarian cysts Result panel 34 (unknown) (no date) (unknown) (unknown) 0 /ul (unkn own) (unknown) (no date) (unknown) (unknown) 0.7 % (unkn own) (unknown) (no date) (unknown) (unknown) 1.2 % (unkn own) (unknown) (no date) (unknown) (unknown) 100 /ul (unkn own) (unknown) (no date) (unknown) (unknown) 12.4 g/dl (unkn own) (unknown) (no date) (unknown) (unknown) 14.4 % (unkn own) (unknown) (no date) (unknown) (unknown) 163 x10 3/ul (unkn own) (unknown) (no date) (unknown) (unknown) 2400 /ul (unkn own) (unknown) (no date) (unknown) (unknown) 27.5 pg (unkn own) (unknown) (no date) (unknown) (unknown) 3300 /ul (unkn own) (unknown) (no date) (unknown) (unknown) 34.0 % (unkn own) (unknown) (no date) (unknown) (unknown) 36.7 % (unkn own) (unknown) (no date) (unknown) (unknown) 38.0 % (unkn own) (unknown) (no date) (unknown) (unknown) 4.52 x10 6/ul (unkn own) (unknown) (no date) (unknown) (unknown) 400 /ul (unkn own) (unknown) (no date) (unknown) (unknown) 53.3 % (unkn own) (unknown) (no date) (unknown) (unknown) 6.3 x10 3/ul (unkn own) (unknown) (no date) (unknown) (unknown) 6.8 % (unkn own) (unknown) (no date) (unknown) (unknown) 81.1 fl (unkn own) Result panel 35 (unknown) (no date) (unknown) (unknown) > 60 ml/min (unkn own) (unknown) (no date) (unknown) (unknown) > 60 ml/min (unkn own) (unknown) (no date) (unknown) (unknown) < 0.5 mg/dl (unkn own) (unknown) (no date) (unknown) (unknown) 0.5 mg/dl (unkn own) (unknown) (no date) (unknown) (unknown) 0.50 mg/dl (unkn own) (unknown) (no date) (unknown) (unknown) 1.4 (units unknown) (unknown) (unknown) (no date) (unknown) (unknown) 101 mmol/l (unkn own) (unknown) (no date) (unknown) (unknown) 11 mg/dl (unkn own) (unknown) (no date) (unknown) (unknown) 138 mmol/l (unkn own) (unknown) (no date) (unknown) (unknown) 22.0 (units unknown) (unknown) (unknown) (no date) (unknown) (unknown) 27 iu/l (unkn own) (unknown) (no date) (unknown) (unknown) 27 mmol/l (unkn own) (unknown) (no date) (unknown) (unknown) 3.3 g/dl (unkn own) (unknown) (no date) (unknown) (unknown) 3.9 mmol/l (unkn own) (unknown) (no date) (unknown) (unknown) 34 iu/l (unkn own) (unknown) (no date) (unknown) (unknown) 4.7 g/dl (unkn own) (unknown) (no date) (unknown) (unknown) 8.0 g/dl (unkn own) (unknown) (no date) (unknown) (unknown) 87 mg/dl (unkn own) (unknown) (no date) (unknown) (unknown) 87 mg/dl (unkn own) (unknown) (no date) (unknown) (unknown) 9.1 mg/dl (unkn own) (unknown) (no date) (unknown) (unknown) 95 u/l (unkn own) Result panel 36 (unknown) (no date) (unknown) (unknown) 0.6 mmol/l (unkn own) Result panel 37 (unknown) (no (unknown) (unknown) (no value) (units (unk nown) date) unknown) (unknown) (no (unknown) (unknown) (1) Left sided abdominal (units (unknown) date) pain: unknown) (unknown) (no (unknown) (unknown) [id number] (units (unkno wn) date) unknown) (unknown) (no (unknown) (unknown) 01/16/23 1929 (units ( unknown) date) unknown) (unknown) (no (unknown) (unknown) 01/16/23 (units (unkno wn) date) unknown) (unknown) (no (unknown) (unknown) 17 (units (unkno wn) date) unknown) (unknown) (no (unknown) (unknown) 17:05 (units (unkno wn) date) unknown) (unknown) (no (unknown) (unknown) 17:17 (units (unkno wn) date) unknown) (unknown) (no (unknown) (unknown) 01/11/2023. She has not (u nits (unknown) date) taken any medications for unkn own) pain relief and reports a 01/02 (unknown) (no (unknown) (unknown) 3 (units (unkno wn) date) unknown) (unknown) (no (unknown) (unknown) 32-year-old female with a (units (unknown) date) history of diverticulitis, unk nown) ovarian cysts, kidney (unknown) (no (unknown) (unknown) 32-year-old female with ( units (unknown) date) history of ovarian cyst, unkno wn) diverticulitis, kidney stones (unknown) (no (unknown) (unknown) 652 (units (unkno wn) date) unknown) (unknown) (no (unknown) (unknown) 7 (units (unkno wn) date) unknown) (unknown) (no (unknown) (unknown) Age/Sex: 32 / F Date of ( units (unknown) date) Service: unknown) (unknown) (no (unknown) (unknown) All systems reviewed + are (units (unknown) date) unremarkable except as unknown ) noted in HPI and below (unknown) (no (unknown) (unknown) Allergies (units (unkn own) date) unknown) (unknown) (no (unknown) (unknown) [facility] (units (unknown) date) unknown) (unknown) (no (unknown) (unknown) [place] [address] (unit s (unknown) date) unknown) (unknown) (no (unknown) (unknown) Anesthesia (units (unk nown) date) unknown) (unknown) (no (unknown) (unknown) Assessment + Plan (units (unknown) date) unknown) (unknown) (no (unknown) (unknown) Attending Dr: Mable (u nits (unknown) date) Paulina Lombardi unknown) (unknown) (no (unknown) (unknown) BACK: Nontender without ( units (unknown) date) deformity or crepitance. No un known) flank tenderness. (unknown) (no (unknown) (unknown) BMI 24.2 (units (unkno wn) date) unknown) (unknown) (no (unknown) (unknown) BP 118/69 (units (unkn own) date) unknown) (unknown) (no (unknown) (unknown) Bartholin's gland abscess (units (unknown) date) unknown) (unknown) (no (unknown) (unknown) Blood Pressure Location Lt (units (unknown) date) brachial unknown) (unknown) (no (unknown) (unknown) C-Reactive Protein Quant (units (unknown) date) Today R10.9 - Unspecified unkn own) abdominal pain (unknown) (no (unknown) (unknown) CARDIOVASCULAR: Regular ( units (unknown) date) rate and rhythm without unknow n) murmurs, gallops, or rubs. (unknown) (no (unknown) (unknown) Cataplexy (units (unkn own) date) unknown) (unknown) (no (unknown) (unknown) Chief Complaint (units (unknown) date) unknown) (unknown) (no (unknown) (unknown) Chief Complaint: left (un its (unknown) date) sided abdominal pain unknown) (unknown) (no (unknown) (unknown) Complete Blood Count AUTO (units (unknown) date) DIFF Today R10.9 - unknown) Unspecified abdominal pain (unknown) (no (unknown) (unknown) Comprehensive Metabolic ( units (unknown) date) Panel Today R10.9 - unknown) Unspecified abdominal pain (unknown) (no (unknown) (unknown) Const (units (unkno wn) date) unknown) (unknown) (no (unknown) (unknown) Contact dermatitis (units (unknown) date) unknown) (unknown) (no (unknown) (unknown) : 1990 (units (unknown) date) Acct:[id number] unknown) (unknown) (no (unknown) (unknown) Dept at . (u nits (unknown) date) unknown) (unknown) (no (unknown) (unknown) Details: (units (unkno wn) date) unknown) (unknown) (no (unknown) (unknown) Diabetes mellitus (units (unknown) date) unknown) (unknown) (no (unknown) (unknown) Documented By: (units (unknown) date) Mable Gallardo P.A-C unknown ) 01/16/23 1 (unknown) (no (unknown) (unknown) ENT: Nose without (units (unknown) date) bleeding, purulent unknown) drainage. Airway patent. (unknown) (no (unknown) (unknown) EXTREMITIES: No edema or (units (unknown) date) joint tenderness. unknown) (unknown) (no (unknown) (unknown) EYES: Pupils equal round (units (unknown) date) and reactive. Extraocular unkn own) motions intact. No scleral (unknown) (no (unknown) (unknown) Exam Narrative (units (unknown) date) unknown) (unknown) (no (unknown) (unknown) Exam Narrative: (units (unknown) date) unknown) (unknown) (no (unknown) (unknown) Exam (units (unkno wn) date) unknown) (unknown) (no (unknown) (unknown) Family History (Reviewed (units (unknown) date) 01/16/23 @ 19:25 by unknown) Mable Gallardo PA-C) (unknown) (no (unknown) (unknown) Father Cancer (units ( unknown) date) unknown) (unknown) (no (unknown) (unknown) GASTROINTESTINAL: Abdomen (units (unknown) date) soft, there is tenderness unkn own) that is mild over the (unknown) (no (unknown) (unknown) GENERAL: [32] year old (u nits (unknown) date) patient appears stated age. un known) Well-developed patient, in (unknown) (no (unknown) (unknown) Grandfather Cancer (units (unknown) date) unknown) (unknown) (no (unknown) (unknown) Grandmother Cancer (units (unknown) date) unknown) (unknown) (no (unknown) (unknown) HEAD: Atraumatic. (units (unknown) date) Normocephalic. unknown) (unknown) (no (unknown) (unknown) HPI (units (unkno wn) date) unknown) (unknown) (no (unknown) (unknown) Hearing loss in right ear (units (unknown) date) unknown) (unknown) (no (unknown) (unknown) Height 167.64 cm (units (unknown) date) unknown) (unknown) (no (unknown) (unknown) Hepatic steatosis (units (unknown) date) unknown) (unknown) (no (unknown) (unknown) History of (units (unk nown) date) esophagogastroduodenoscopy unk nown) (EGD) (unknown) (no (unknown) (unknown) History of heart disease (units (unknown) date) unknown) (unknown) (no (unknown) (unknown) History of tonsillectomy (units (unknown) date) (-2003) unknown) (unknown) (no (unknown) (unknown) I feel this is reasonable (units (unknown) date) for further evaluation, unknow n) labs are ordered today to (unknown) (no (unknown) (unknown) Impacted cerumen of right (units (unknown) date) ear unknown) (unknown) (no (unknown) (unknown) Ingrown toenail of right (units (unknown) date) foot unknown) (unknown) (no (unknown) (unknown) Intake Note: (units (u nknown) date) unknown) (unknown) (no (unknown) (unknown) Intake performed by: (uni ts (unknown) date) Rosemary Patricio unknown) (unknown) (no (unknown) (unknown) Intake (units (unkno wn) date) unknown) (unknown) (no (unknown) (unknown) Intake- Clincial Staff (u nits (unknown) date) unknown) (unknown) (no (unknown) (unknown) Lactate (Lactic Acid) (un its (unknown) date) Today R10.9 - Unspecified unkn own) abdominal pain (unknown) (no (unknown) (unknown) Last Menstural Cycle + (u nits (unknown) date) Details unknown) (unknown) (no (unknown) (unknown) Loc: [facility] (units (unkno wn) date) unknown) (unknown) (no (unknown) (unknown) Medical History (Reviewed (units (unknown) date) 01/16/23 @ 19:25 by unknown) Mable Gallardo PA-C) (unknown) (no (unknown) (unknown) Mother Cancer (units ( unknown) date) unknown) (unknown) (no (unknown) (unknown) NECK: Trachea midline. Non (units (unknown) date) tender unknown) (unknown) (no (unknown) (unknown) NEURO: AOx3. (units (u nknown) date) unknown) (unknown) (no (unknown) (unknown) Narcolepsy and cataplexy (units (unknown) date) unknown) (unknown) (no (unknown) (unknown) Orders (units (unkno wn) date) unknown) (unknown) (no (unknown) (unknown) Orders: (units (unkno wn) date) unknown) (unknown) (no (unknown) (unknown) Other Menstrual Period: ( units (unknown) date) Other (DUB ) unknown) (unknown) (no (unknown) (unknown) Oxygen Delivery Method (u nits (unknown) date) room air unknown) (unknown) (no (unknown) (unknown) PFSH (units (unkno wn) date) unknown) (unknown) (no (unknown) (unknown) POC Urine Dip Today R10.9 (units (unknown) date) - Unspecified abdominal unknow n) pain (unknown) (no (unknown) (unknown) POC Urine Test (units (unknown) date) Today R10.9 - Unspecified unkn own) abdominal pain (unknown) (no (unknown) (unknown) Patient has been having (u nits (unknown) date) regular periods, her last unkn own) period started around the (unknown) (no (unknown) (unknown) Patient states that she (u nits (unknown) date) prefers to monitor her unknown ) symptoms at home at this time but (unknown) (no (unknown) (unknown) Patient: Nadya Crowley (units (unknown) date) MR#: [id number] unknown) (unknown) (no (unknown) (unknown) Peptic ulcer disease (uni ts (unknown) date) unknown) (unknown) (no (unknown) (unknown) Perioral dermatitis (unit s (unknown) date) unknown) (unknown) (no (unknown) (unknown) Plan (units (unkno wn) date) unknown) (unknown) (no (unknown) (unknown) Position Sitting (units (unknown) date) unknown) (unknown) (no (unknown) (unknown) Pt came to the [facility] today ( units (unknown) date) with a chief complaint of unkn own) LLQ pain. Pt was at work this (unknown) (no (unknown) (unknown) Pulse 69 (units (unkno wn) date) unknown) (unknown) (no (unknown) (unknown) Pulse Oximetry (%) 98 (un its (unknown) date) unknown) (unknown) (no (unknown) (unknown) Pulse Source Monitor (uni ts (unknown) date) unknown) (unknown) (no (unknown) (unknown) RESPIRATORY: Clear to (uni ts (unknown) date) auscultation. Breath sounds un known) equal bilaterally. No wheezes, (unknown) (no (unknown) (unknown) ROS (units (unkno wn) date) unknown) (unknown) (no (unknown) (unknown) Reason For Visit (units (unknown) date) unknown) (unknown) (no (unknown) (unknown) Respiration 20 (units (unknown) date) unknown) (unknown) (no (unknown) (unknown) Results (units (unkno wn) date) unknown) (unknown) (no (unknown) (unknown) SKIN: No rash or erythema (units (unknown) date) of visible areas unknown) (unknown) (no (unknown) (unknown) Seizure disorder (units (unknown) date) unknown) (unknown) (no (unknown) (unknown) She does state she had a (units (unknown) date) normal bowel movement unknown) earlier this afternoon, her pain (unknown) (no (unknown) (unknown) She states ?I have had 2 (units (unknown) date) children and this pain was unk nown) as bad or worse.'She thinks (unknown) (no (unknown) (unknown) Signed By: <Electronically (units (unknown) date) signed by Mable Lombardi unkno wn) Paulina> (unknown) (no (unknown) (unknown) Signed (units (unkno wn) date) unknown) (unknown) (no (unknown) (unknown) Smoking Status: Never (un its (unknown) date) smoker unknown) (unknown) (no (unknown) (unknown) Social History (units (unknown) date) unknown) (unknown) (no (unknown) (unknown) Sulfa (Sulfonamide (units (unknown) date) Antibiotics) Allergy unknown) (Verified 07/08/20 15:13) (unknown) (no (unknown) (unknown) Surgical History (Reviewed (units (unknown) date) 01/16/23 @ 19:25 by unknown) Mable Gallardo PA-C) (unknown) (no (unknown) (unknown) Symptoms started this (un its (unknown) date) afternoon. Now pain 01/02. unkn own) Patient does have tenderness (unknown) (no (unknown) (unknown) Temp 98.9 F (units (un known) date) unknown) (unknown) (no (unknown) (unknown) Temp Source Skin (units (unknown) date) unknown) (unknown) (no (unknown) (unknown) This note may have been ( units (unknown) date) all or partially generated unk nown) using voice recognition (unknown) (no (unknown) (unknown) Tobacco + Substance Use ( units (unknown) date) unknown) (unknown) (no (unknown) (unknown) Tobacco Status (units (unknown) date) unknown) (unknown) (no (unknown) (unknown) Urine Appearance Clear (u nits (unknown) date) Last Edit by Rosemary Patricio, un known) RN on 01/16/23 17:17 (unknown) (no (unknown) (unknown) Urine Bilirubin Negative (units (unknown) date) Last Edit by Rosemary Patricio, un known) RN on 01/16/23 17:17 (unknown) (no (unknown) (unknown) Urine Blood Negative Last (units (unknown) date) Edit by Rosemary Patricio RN unkn own) on 01/16/23 17:17 (unknown) (no (unknown) (unknown) Urine Color Yellow Last ( units (unknown) date) Edit by Rosemary Patricio RN unkn own) on 01/16/23 17:17 (unknown) (no (unknown) (unknown) Urine Culture Today R10.9 (units (unknown) date) - Unspecified abdominal unknow n) pain (unknown) (no (unknown) (unknown) Urine Dipstick (units (unknown) date) unknown) (unknown) (no (unknown) (unknown) Urine Glucose Negative (u nits (unknown) date) mg/dL Last Edit by Rosemary pratt own) GUERRERO Patricio on 01/16/23 17:1 (unknown) (no (unknown) (unknown) Urine Ketones Negative (u nits (unknown) date) Last Edit by Rosemary Patricio, un known) RN on 01/16/23 17:17 (unknown) (no (unknown) (unknown) Urine Leukocyte Esterase (units (unknown) date) Negative Last Edit by unknown) Rosemary Patricio RN on (unknown) (no (unknown) (unknown) Urine Nitrate Negative (u nits (unknown) date) Last Edit by Rosemary Patricio, un known) RN on 01/16/23 17:17 (unknown) (no (unknown) (unknown) Urine Protein Negative (u nits (unknown) date) Last Edit by Rosemary Patricio, un known) RN on 01/16/23 17:17 (unknown) (no (unknown) (unknown) Urine Specific [place] (u nits (unknown) date) 1.015 Last Edit by oRsemary pratt own) GUERRERO Patricio on 01/16/23 17: (unknown) (no (unknown) (unknown) Urine Urobilinogen - 0.2 (units (unknown) date) mg/dL Last Edit by Rosemary pratt own) GUERRERO Patricio on 01/16/23 (unknown) (no (unknown) (unknown) Urine pH 6.0 Last Edit by (units (unknown) date) Rosemary Patricio RN on unknown) 01/16/23 17:17 (unknown) (no (unknown) (unknown) Visit Reasons: abd (units (unknown) date) cramping unknown) (unknown) (no (unknown) (unknown) Vitals (units (unkno wn) date) unknown) (unknown) (no (unknown) (unknown) Walk In Clinic Visit (uni ts (unknown) date) unknown) (unknown) (no (unknown) (unknown) Weight 68.039 kg (units (unknown) date) unknown) (unknown) (no (unknown) (unknown) active x4. (units (unk nown) date) unknown) (unknown) (no (unknown) (unknown) adhesive tape Allergy (un its (unknown) date) (Mild, Verified 07/08/20 unkno wn) 15:13) (unknown) (no (unknown) (unknown) afternoon and had a normal (units (unknown) date) BM. After she had a BM she unk nown) reported that she felt (unknown) (no (unknown) (unknown) alcohol intake: never (un its (unknown) date) unknown) (unknown) (no (unknown) (unknown) and intense. Pt stated that (units (unknown) date) the pain lasted for about unkn own) an hour and a half and she (unknown) (no (unknown) (unknown) and just finished (units (unknown) date) yesterday. She says it was unk nown) pretty normal for her except (unknown) (no (unknown) (unknown) and stated that it felt ( units (unknown) date) similar to that and the unknow n) pain was 'mostly in the front (unknown) (no (unknown) (unknown) as diverticulitis. It is (units (unknown) date) possible that this is a unknow n) diverticulitis flare however (unknown) (no (unknown) (unknown) borderline and you should (units (unknown) date) watch it?. Patient states unkn own) that she tried multiple (unknown) (no (unknown) (unknown) but did not feel at all ( units (unknown) date) like kidney stone pain. She un known) states a few years ago when (unknown) (no (unknown) (unknown) codeine Allergy (Verified (units (unknown) date) 07/08/20 15:13) unknown) (unknown) (no (unknown) (unknown) cysts the pop up on (units (unknown) date) different parts of her body un known) especially when she is under the (unknown) (no (unknown) (unknown) department or call 911 if (units (unknown) date) needed/worsens or does not unk nown) improve. Follow-up plan (unknown) (no (unknown) (unknown) dip today in clinic is (u nits (unknown) date) unremarkable. Urine is sent un known) for culture further (unknown) (no (unknown) (unknown) discussed, all questions (units (unknown) date) answered. unknown) (unknown) (no (unknown) (unknown) evaluation for abdominal ( units (unknown) date) pain in the walk-in clinic unk nown) to rule out life-threatening (unknown) (no (unknown) (unknown) evaluation, including labs (units (unknown) date) and possibly imaging such unkn own) as ultrasound or CT. (unknown) (no (unknown) (unknown) evaluation. Discussed with (units (unknown) date) the patient that we are unknow n) unable to complete a full (unknown) (no (unknown) (unknown) firm but they resolve on (units (unknown) date) their own she states she unkno wn) does not have any currently. (unknown) (no (unknown) (unknown) had 3 of them 1 on her (u nits (unknown) date) scalp 1 on her arm and 1 on un known) her labia she states she is (unknown) (no (unknown) (unknown) have occurred. If there ( units (unknown) date) are any questions, please unkn own) contact the Medical Records (unknown) (no (unknown) (unknown) household members: spouse (units (unknown) date) and children unknown) (unknown) (no (unknown) (unknown) icterus. No injection or (units (unknown) date) drainage. unknown) (unknown) (no (unknown) (unknown) illness, advise the (unit s (unknown) date) patient to go to the unknown) emergency department for further (unknown) (no (unknown) (unknown) include CMP CBC CRP and (u nits (unknown) date) lactate given her history unkn own) of? abnormal appendix? as well (unknown) (no (unknown) (unknown) it could also be related (units (unknown) date) to her ovaries, less likely un known) a kidney stone given her (unknown) (no (unknown) (unknown) it is possible that it (u nits (unknown) date) felt similar to when she unkno wn) had problems with ovarian cysts (unknown) (no (unknown) (unknown) itching, swelling (units (unknown) date) unknown) (unknown) (no (unknown) (unknown) lower quadrants, patient (units (unknown) date) is most tender over the unknow n) left lower quadrant. There is (unknown) (no (unknown) (unknown) may occur. Occasional (un its (unknown) date) wrong-word or 'sound-alike' un known) substitutions may have (unknown) (no (unknown) (unknown) medroxyprogesterone (unit s (unknown) date) Allergy (Verified 07/08/20 unk nown) 15:13) (unknown) (no (unknown) (unknown) mild distress. (units (unknown) date) unknown) (unknown) (no (unknown) (unknown) near where my ovaries are (units (unknown) date) located', but noted that unkno wn) she hasn't had one in a long (unknown) (no (unknown) (unknown) no flank tenderness/CVA ( units (unknown) date) tenderness. Otherwise unknown) non-tender, nondistended. (unknown) (no (unknown) (unknown) not been evaluated for (u nits (unknown) date) these previously that they unk nown) are about marble-sized and (unknown) (no (unknown) (unknown) notes that she will (unit s (unknown) date) immediately go to the ER if un known) she has worsening symptoms or (unknown) (no (unknown) (unknown) occurred due to the (unit s (unknown) date) inherent limitations of unknow n) voice recognition software. Please (unknown) (no (unknown) (unknown) on exam that is left-sided (units (unknown) date) although also some unknown) periumbilical tenderness. Urine (unknown) (no (unknown) (unknown) only present if she (unit s (unknown) date) presses on her belly and it un known) was a little bit ?sore? now. (unknown) (no (unknown) (unknown) pain. Pt stated that she ( units (unknown) date) does not think there is any un known) chance she is , but (unknown) (no (unknown) (unknown) periumbilical region, (un its (unknown) date) there is also tenderness unkno wn) over the left upper and left (unknown) (no (unknown) (unknown) possibly a little bit (un its (unknown) date) heavier in terms of unknown) clotting. She is not had any nausea, (unknown) (no (unknown) (unknown) presents with left-sided (units (unknown) date) sudden onset abdominal pain un known) that has largely improved. (unknown) (no (unknown) (unknown) provided a urine specimen (units (unknown) date) for POC and agreed to a unknow n) urine HCG. Bowel sounds are (unknown) (no (unknown) (unknown) rales, or rhonchi. (units (unknown) date) unknown) (unknown) (no (unknown) (unknown) read the note carefully ( units (unknown) date) and recognize, using unknown) context, where these substitutions (unknown) (no (unknown) (unknown) really hot and dizzy and (units (unknown) date) had 10/10 abdominal pain unkno wn) that she described as sharp (unknown) (no (unknown) (unknown) return of her severe pain. (units (unknown) date) She did ask if it would be unk nown) possible to get labs and (unknown) (no (unknown) (unknown) said she thought it was ( units (unknown) date) severe gas at 1st within 15 un known) minutes it was ?10/10 pain. (unknown) (no (unknown) (unknown) second hand exposure: No (units (unknown) date) unknown) (unknown) (no (unknown) (unknown) seemed to help, her (unit s (unknown) date) coworkers almost called 911 un known) because she was so (unknown) (no (unknown) (unknown) she was told she had (uni ts (unknown) date) diverticulitis she was also un known) told ?your appendix is (unknown) (no (unknown) (unknown) sided abdominal pain that (units (unknown) date) has since largely improved. un known) Patient states that she (unknown) (no (unknown) (unknown) software. Although every (units (unknown) date) effort is made to edit unknown ) content, retail pharmacist errors (unknown) (no (unknown) (unknown) started 1 or 2 hours (uni ts (unknown) date) afterwards. She does also unkn own) note that she sometimes gets (unknown) (no (unknown) (unknown) started to improve and she (units (unknown) date) states now her pain is unknown ) about a 2/10 and it is mostly (unknown) (no (unknown) (unknown) stones presents with (uni ts (unknown) date) concern for sudden onset unkno wn) this afternoon of severe left (unknown) (no (unknown) (unknown) substance use type: does (units (unknown) date) not use unknown) (unknown) (no (unknown) (unknown) things to improve her (un its (unknown) date) symptoms including changing un known) position massage, but nothing (unknown) (no (unknown) (unknown) this. Patient was in (uni ts (unknown) date) understanding that we did unkn own) not complete a full evaluation (unknown) (no (unknown) (unknown) time. Pt denies fever, (u nits (unknown) date) n/v, SOB, and chest pain. unkn own) Her last menstrual period was (unknown) (no (unknown) (unknown) to rule out (units (un known) date) life-threatening abdominal unk nown) pain and will return to emergency (unknown) (no (unknown) (unknown) uncomfortable. But then ( units (unknown) date) when she was on her way to unk nown) the clinic her symptoms (unknown) (no (unknown) (unknown) unremarkable urine dip on (units (unknown) date) her symptoms and exam unknown) findings are not consistent with (unknown) (no (unknown) (unknown) used stretching techniques (units (unknown) date) and yoga poses to try and unkn own) relieve what she suspected (unknown) (no (unknown) (unknown) vomiting, diarrhea, (unit s (unknown) date) fevers, chills, body aches unk nown) or any other symptoms. (unknown) (no (unknown) (unknown) was at work at her desk ( units (unknown) date) and suddenly started having un known) pain in her left side she (unknown) (no (unknown) (unknown) weather or feeling sick or (units (unknown) date) has a virus, she states unknow n) that this past week she is (unknown) (no (unknown) (unknown) were gas pains. She stated (units (unknown) date) that with positional unknown) changes the pain kept getting (unknown) (no (unknown) (unknown) worse and she felt like she (units (unknown) date) was going to pass out. She unk nown) has a hx of ovarian cysts Result panel 38 (unknown) (no date) (unknown) (unknown) No growth. (units (un known) unknown) Result panel 39 (unknown) (no date) (unknown) (unknown) (no value) (units (un known) unknown) (unknown) (no date) (unknown) (unknown) Mixed gram + (units ( unknown) lonnie. Deemed unknown) unsuitable for further studies. Result panel 40 (unknown) (no (unknown) (unknown) (no value) (units (unk nown) date) unknown) (unknown) (no (unknown) (unknown) <Electronically signed by (units (unknown) date) Angelika Merino D.O.> unknown) (unknown) (no (unknown) (unknown) [id number] (units (unkno wn) date) unknown) (unknown) (no (unknown) (unknown) 01/26/23 11:23 (units (unknown) date) unknown) (unknown) (no (unknown) (unknown) 01/26/23 1848 (units ( unknown) date) unknown) (unknown) (no (unknown) (unknown) 01/26/23 (units (unkno wn) date) unknown) (unknown) (no (unknown) (unknown) 1 applictn TOP BID Qty: 45 (units (unknown) date) 0RF unknown) (unknown) (no (unknown) (unknown) 1 applictn TOP DAILY Qty: (units (unknown) date) 30 0RF unknown) (unknown) (no (unknown) (unknown) 11:08 (units (unkno wn) date) unknown) (unknown) (no (unknown) (unknown) Age/Sex: 32 / F (units (unknown) date) unknown) (unknown) (no (unknown) (unknown) Allergies (units (unkn own) date) unknown) (unknown) (no (unknown) (unknown) Allergy/AdvReac Type (uni ts (unknown) date) Severity Reaction Status unkno wn) Date / Time (unknown) (no (unknown) (unknown) Anesthesia (units (unk nown) date) unknown) (unknown) (no (unknown) (unknown) Antibiotics) (units (u nknown) date) unknown) (unknown) (no (unknown) (unknown) Attestation: I personally (units (unknown) date) reviewed and interpreted unkno wn) this ECG as follows: (unknown) (no (unknown) (unknown) Bartholin's gland abscess (units (unknown) date) unknown) (unknown) (no (unknown) (unknown) Blood Pressure 146/81 H ( units (unknown) date) 01/26/23 11:08 unknown) (unknown) (no (unknown) (unknown) Blood Pressure 146/81 H ( units (unknown) date) unknown) (unknown) (no (unknown) (unknown) Cataplexy (units (unkn own) date) unknown) (unknown) (no (unknown) (unknown) Chief Complaint: Chest (u nits (unknown) date) Pain unknown) (unknown) (no (unknown) (unknown) Clinical Impression: (uni ts (unknown) date) unknown) (unknown) (no (unknown) (unknown) Contact dermatitis (units (unknown) date) unknown) (unknown) (no (unknown) (unknown) Course (units (unkno wn) date) unknown) (unknown) (no (unknown) (unknown) : 1990 (units (unknown) date) Acct:[id number] unknown) (unknown) (no (unknown) (unknown) Date of Service: 01/26/23 (units (unknown) date) unknown) (unknown) (no (unknown) (unknown) Departure (units (unkn own) date) unknown) (unknown) (no (unknown) (unknown) Diabetes mellitus (units (unknown) date) unknown) (unknown) (no (unknown) (unknown) Discharge Plan (units (unknown) date) unknown) (unknown) (no (unknown) (unknown) ECG Data (units (unkno wn) date) unknown) (unknown) (no (unknown) (unknown) ED Orders (units (unkn own) date) unknown) (unknown) (no (unknown) (unknown) EKG-12 Lead Stat (units (unknown) date) unknown) (unknown) (no (unknown) (unknown) ER Physician: Angelika Merino (units (unknown) date) C D.O. unknown) (unknown) (no (unknown) (unknown) Emergency Report (units (unknown) date) unknown) (unknown) (no (unknown) (unknown) Exam (units (unkno wn) date) unknown) (unknown) (no (unknown) (unknown) Family History (Reviewed (units (unknown) date) 01/16/23 @ 19:25 by unknown) Mable Gallardo PA-C) (unknown) (no (unknown) (unknown) Father Cancer (units ( unknown) date) unknown) (unknown) (no (unknown) (unknown) General (units (unkno wn) date) unknown) (unknown) (no (unknown) (unknown) Grandfather Cancer (units (unknown) date) unknown) (unknown) (no (unknown) (unknown) Grandmother Cancer (units (unknown) date) unknown) (unknown) (no (unknown) (unknown) HPI - Chest Pain (units (unknown) date) unknown) (unknown) (no (unknown) (unknown) HPI narrative: (units (unknown) date) unknown) (unknown) (no (unknown) (unknown) Hearing loss in right ear (units (unknown) date) unknown) (unknown) (no (unknown) (unknown) Hepatic steatosis (units (unknown) date) unknown) (unknown) (no (unknown) (unknown) History of Present Illness (units (unknown) date) unknown) (unknown) (no (unknown) (unknown) History of (units (unk nown) date) esophagogastroduodenoscopy unk nown) (EGD) (unknown) (no (unknown) (unknown) History of heart disease (units (unknown) date) unknown) (unknown) (no (unknown) (unknown) History of tonsillectomy (units (unknown) date) (-2003) unknown) (unknown) (no (unknown) (unknown) Impacted cerumen of right (units (unknown) date) ear unknown) (unknown) (no (unknown) (unknown) Ingrown toenail of right (units (unknown) date) foot unknown) (unknown) (no (unknown) (unknown) Initial Vital Signs (unit s (unknown) date) unknown) (unknown) (no (unknown) (unknown) Initial Vital Signs: (uni ts (unknown) date) unknown) (unknown) (no (unknown) (unknown) Interpretation: (units (unknown) date) unknown) (unknown) (no (unknown) (unknown) [facility] [address] (units (unknown) date) [place] [address] unk nown) (unknown) (no (unknown) (unknown) MDM - Chest Pain (units (unknown) date) unknown) (unknown) (no (unknown) (unknown) Medical History (Updated (units (unknown) date) 01/26/23 @ 11:52 by unknown) Gail Sweet RN) (unknown) (no (unknown) (unknown) Medication Instructions ( units (unknown) date) Recorded unknown) (unknown) (no (unknown) (unknown) Mode of arrival: Family ( units (unknown) date) Vehicle unknown) (unknown) (no (unknown) (unknown) Mother Cancer (units ( unknown) date) unknown) (unknown) (no (unknown) (unknown) Narcolepsy and cataplexy (units (unknown) date) unknown) (unknown) (no (unknown) (unknown) No Action (units (unkn own) date) unknown) (unknown) (no (unknown) (unknown) Ordered: (units (unkno wn) date) unknown) (unknown) (no (unknown) (unknown) Orders (units (unkno wn) date) unknown) (unknown) (no (unknown) (unknown) Oxygen Delivery Method (u nits (unknown) date) Room Air 01/26/23 11:08 unknow n) (unknown) (no (unknown) (unknown) Oxygen Delivery Method (u nits (unknown) date) Room Air unknown) (unknown) (no (unknown) (unknown) Patient Disposition: Left (units (unknown) date) Without Being Seen unknown) (unknown) (no (unknown) (unknown) Patient History (units (unknown) date) unknown) (unknown) (no (unknown) (unknown) Patient left after triage (units (unknown) date) unknown) (unknown) (no (unknown) (unknown) Patient left without being (units (unknown) date) seen. unknown) (unknown) (no (unknown) (unknown) Patient: Nadya Crowley (units (unknown) date) MR#: [id number] unknown) (unknown) (no (unknown) (unknown) Peptic ulcer disease (uni ts (unknown) date) unknown) (unknown) (no (unknown) (unknown) Perioral dermatitis (unit s (unknown) date) unknown) (unknown) (no (unknown) (unknown) Prescriptions: (units (unknown) date) unknown) (unknown) (no (unknown) (unknown) Previous Rx's (units ( unknown) date) unknown) (unknown) (no (unknown) (unknown) Prior ECG tracings: (unit s (unknown) date) available for review unknown) (unknown) (no (unknown) (unknown) Pulse Oximetry 99 01/26/23 (units (unknown) date) 11:08 unknown) (unknown) (no (unknown) (unknown) Pulse Oximetry 99 (units (unknown) date) unknown) (unknown) (no (unknown) (unknown) Pulse Rate 106 H 01/26/23 (units (unknown) date) 11:08 unknown) (unknown) (no (unknown) (unknown) Pulse Rate 106 H (units (unknown) date) unknown) (unknown) (no (unknown) (unknown) Related Data (units (u nknown) date) unknown) (unknown) (no (unknown) (unknown) Respiratory Rate 12 (unit s (unknown) date) 01/26/23 11:08 unknown) (unknown) (no (unknown) (unknown) Respiratory Rate 12 (unit s (unknown) date) unknown) (unknown) (no (unknown) (unknown) Rx Instructions: (units (unknown) date) unknown) (unknown) (no (unknown) (unknown) Seizure disorder (units (unknown) date) unknown) (unknown) (no (unknown) (unknown) Signed By: (units (unk nown) date) unknown) (unknown) (no (unknown) (unknown) Sinus rhythm rate of 98 HI (units (unknown) date) 136 QRS 84 QTC of 454. No unkn own) acute ST changes (unknown) (no (unknown) (unknown) Smoking Status: Never (un its (unknown) date) smoker unknown) (unknown) (no (unknown) (unknown) Social History (Reviewed (units (unknown) date) 01/08/20 @ 02:13 by Silver unkn own) JASEN Laughlin) (unknown) (no (unknown) (unknown) Stated Complaint: thinks (units (unknown) date) she has shingles T-7 unknown) (unknown) (no (unknown) (unknown) Substance Use Type: does (units (unknown) date) not use unknown) (unknown) (no (unknown) (unknown) Sulfa (Sulfonamide Allergy (units (unknown) date) Verified 01/26/23 11:10 unknow n) (unknown) (no (unknown) (unknown) Surgical History (Reviewed (units (unknown) date) 01/16/23 @ 19:25 by unknown) Mable Gallardo PA-C) (unknown) (no (unknown) (unknown) Temperature 99.6 F (units (unknown) date) 01/26/23 11:08 unknown) (unknown) (no (unknown) (unknown) Temperature 99.6 F (units (unknown) date) unknown) (unknown) (no (unknown) (unknown) Vital Signs - 8 hr (units (unknown) date) unknown) (unknown) (no (unknown) (unknown) Vital Signs (units (un known) date) unknown) (unknown) (no (unknown) (unknown) Vital signs: (units (u nknown) date) unknown) (unknown) (no (unknown) (unknown) adhesive tape Allergy Mild (units (unknown) date) Verified 01/26/23 11:10 unknow n) (unknown) (no (unknown) (unknown) alcohol intake frequency: (units (unknown) date) holidays/special occasions unk nown) only (unknown) (no (unknown) (unknown) alcohol intake: never (un its (unknown) date) unknown) (unknown) (no (unknown) (unknown) appreciated. Patient has (units (unknown) date) prior from 01/07/2020 unknown) compared no acute change noted. (unknown) (no (unknown) (unknown) clindamycin phosphate 1 % (units (unknown) date) solution unknown) (unknown) (no (unknown) (unknown) clindamycin phosphate 1 % (units (unknown) date) topical 1 applictn topical unk nown) DAILY #30 mL 05/23/20 (unknown) (no (unknown) (unknown) codeine Allergy Verified (units (unknown) date) 01/26/23 11:10 unknown) (unknown) (no (unknown) (unknown) household members: spouse (units (unknown) date) and children unknown) (unknown) (no (unknown) (unknown) medroxyprogesterone (unit s (unknown) date) Allergy itching, Verified unkn own) 01/26/23 11:10 (unknown) (no (unknown) (unknown) second hand exposure: No (units (unknown) date) unknown) (unknown) (no (unknown) (unknown) solution (units (unkno wn) date) unknown) (unknown) (no (unknown) (unknown) substance use type: does (units (unknown) date) not use unknown) (unknown) (no (unknown) (unknown) swelling (units (unkno wn) date) unknown) (unknown) (no (unknown) (unknown) topical cream (units ( unknown) date) unknown) (unknown) (no (unknown) (unknown) triamcinolone acetonide ( units (unknown) date) 0.1 % 1 applictn topical unkno wn) BID #45 grams 05/23/20 (unknown) (no (unknown) (unknown) triamcinolone acetonide ( units (unknown) date) 0.1 % cream unknown) (unknown) (no (unknown) (unknown) use every day until clear, (units (unknown) date) may take 6 weeks unknown) (unknown) (no (unknown) (unknown) use over affected area BID (units (unknown) date) for up to 2 weeks unknown) Social History date description facility 2023-01-16 00:00 Never smoked tobacco (finding) [facility] 2023-01-26 00:00 Never smoked tobacco (finding) [facility] Vital Signs date measurement value units 2023-01-16 00:00 BMI 24.2 kg/m2 2023-01-16 00:00 BP_diastolic 69 mmHg 2023-01-16 00:00 BP_systolic 118 mmHg 2023-01-16 00:00 heart_rate 69 /min 2023-01-16 00:00 height_metric 167.64 cm 2023-01-16 00:00 height_standard 66 in 2023-01-16 00:00 o2_saturation 98 % 2023-01-16 00:00 respiration_rate 20 /min 2023-01-16 00:00 temperature_metric 37.17 C 2023-01-16 00:00 temperature_standard 98.9 F 2023-01-16 00:00 weight_metric 68.03 kg 2023-01-16 00:00 weight_standard 149.98 lb 2023-01-26 00:00 BMI 24.2 kg/m2 2023-01-26 00:00 BP_diastolic 81 mmHg 2023-01-26 00:00 BP_systolic 146 mmHg 2023-01-26 00:00 heart_rate 106 /min 2023-01-26 00:00 height_metric 167.64 cm 2023-01-26 00:00 height_standard 66 in 2023-01-26 00:00 o2_saturation 99 % 2023-01-26 00:00 respiration_rate 12 /min 2023-01-26 00:00 temperature_metric 37.56 C 2023-01-26 00:00 temperature_standard 99.6 F 2023-01-26 00:00 weight_metric 68.03 kg 2023-01-26 00:00 weight_standard 149.98 lb
[2023-01-27 05:10] LABS: BASOPHILS % (AUTO) 0.6 %; EOSINOPHILS % (AUTO) 0.8 %; HGB - HEMOGLOBIN 11.5 g/dL (12.0-16.0); LYMPHOCYTES # (AUTO) 2.1 10^3/uL (1.5-3.5); LYMPHOCYTES % (AUTO) 42.1 %; MEAN CORPUSCULAR HGB CONC 32.9 g/dL (32.0-36.0); MEAN CORPUSCULAR VOLUME 82.2 fL (81.0-99.0); MONOCYTES # (AUTO) 0.4 10^3/uL (0.0-1.0); MONOCYTES % (AUTO) 7.7 %; NEUTROPHILS # (AUTO) 2.4 10^3/uL (1.5-6.6); NEUTROPHILS % (AUTO) 48.6 %; PLT - PLATELET COUNT 152 10^3/uL (130-450); RED BLOOD COUNT 4.26 10^6/uL (4.20-5.40); RED CELL DISTRIBUTION WIDTH 13.6 % (12.0-15.0); WHITE BLOOD COUNT 4.9 x10^3/uL (4.8-10.8)
[2023-01-27 05:24] LABS: ALBUMIN 4.3 g/dL (3.2-5.5); ALBUMIN/GLOBULIN RATIO 1.3 (1.0-2.2); BILIRUBIN,TOTAL 1.1 mg/dL (0.2-1.0); CALCIUM 9.3 mg/dL (8.5-10.3); CREATININE 0.4 mg/dL (0.4-1.0); POTASSIUM 3.7 mmol/L (3.5-5.0); TOTAL PROTEIN 7.5 g/dL (6.7-8.2)
--- NOTE | 2023-01-27 07:51 | XRAY Report ---
PROCEDURE: Chest 2 View X-Ray INDICATIONS: cough cp TECHNIQUE: 2 views of the chest were acquired. COMPARISON: Chest x-ray, 03/06/2022. FINDINGS: Surgical changes and devices: None. Lungs and pleura: No pleural effusions or pneumothorax. Lungs are clear. Mediastinum: Mediastinal contours are normal. Heart size is normal. Bones and chest wall: No suspicious bony abnormalities. Soft tissues appear unremarkable. IMPRESSION: No acute cardiopulmonary disease. No significant discrepancy with the preliminary interpretation. Reviewed by: Gene Younger MD on 01/27/2023 7:50 AM PST Approved by: Gene Younger MD on 01/27/2023 7:50 AM PST Station ID: [id number]
[2023-01-27] MEDS ORDERED: LORazepam 1 MG TABLET PO STA (08:02)
[2023-01-27 08:08] VITALS: BP 111/78
--- NOTE | 2023-01-27 08:09 | ED Physician Documentation ---
History of Present Illness - Stated complaint Stated Complaint: HEART PALP - Chief complaint Chief Complaint: Cardiac - History obtained from History obtained from: Patient - Additonal information Additional information: 32yF with pmh depression, htn, alcohol abuse (10 months sober, recent relapse) p/w heart palpitations overnight. does endorse intermittent cp and palpitations X 2 weeks. on further history, patient admits she recently relapsed but she hasn't had alcohol for several hours and is feeling symptoms of withdrawal. denies fever, cough, soa, nausea. Review of Systems Constitutional: reports: Myalgias, Fatigue. 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 : None HEENT: None Psych: Depression, Anxiety, Bipolar disorder, Other Musculoskeletal: None Derm: None Other Past Medical History: Enlarged valve - Past Surgical History Past Surgical History: Yes HEENT: Tonsil/Adenoidectomy - Present Medications Home Medications: Ambulatory Orders Medication Instructions Recorded Confirmed Gabapentin [Neurontin] 300 mg PO BID 07/06/21 01/27/23 - Allergies Allergies/Adverse Reactions: Allergies Allergy/AdvReac Type Severity Reaction Status Date / Time Sulfa (Sulfonamide Allergy Unknown Anaphylaxis Verified 01/27/23 04:33 Antibiotics) adhesive tape AdvReac Unknown Rash Verified 01/27/23 04:33 codeine AdvReac Unknown Nausea Verified 01/27/23 04:33 - Social History Does the pt smoke?: No Smoking Status: Never smoker Does the pt drink ETOH?: Yes Does the pt have substance abuse?: Yes - Immunizations Immunizations are current?: Yes - POLST Patient has POLST: No PD ED PE NORMAL - Vitals Vital signs reviewed: Yes - General General: Alert and oriented X 3, Well developed/nourished, Other (anxious appearing) - HEENT HEENT: Atraumatic, PERRL, EOMI - Neck Neck: Supple, no meningeal sign - Cardiac Cardiac: RRR - Respiratory Respiratory: No respiratory distress, Clear bilaterally - Abdomen Abdomen: Non tender, Non distended Results - Vitals Vitals: Vital Signs - 24 hr 01/27/23 01/27/23 01/27/23 04:17 04:20 04:53 Temperature 37.0 C Heart Rate 102 H 102 H Respiratory 14 15 Rate Blood Pressure 123/80 127/92 H Blood Pressure 127/92 H [Right] O2 Saturation 98 98 01/27/23 01/27/23 05:50 06:36 Temperature Heart Rate 94 102 H Respiratory 17 12 Rate Blood Pressure 121/83 H 138/85 H Blood Pressure [Right] O2 Saturation 96 98 Oxygen O2 Source Room air - Labs Labs: Laboratory Tests 01/27/23 01/27/23 01/27/23 05:02 05:02 05:02 WBC 4.9 RBC 4.26 Hgb 11.5 L Hct 35.0 L MCV 82.2 MCH 27.0 MCHC 32.9 RDW 13.6 Plt Count 152 MPV 10.0 Neut # (Auto) 2.4 Lymph # (Auto) 2.1 [place] # (Auto) 0.4 Eos # (Auto) 0.0 Baso # (Auto) 0.0 Absolute Nucleated RBC 0.00 Nucleated RBC % 0.0 Sodium 140 Potassium 3.7 Chloride 103 Carbon Dioxide 23 Anion Gap 14.0 H BUN 10 Creatinine 0.4 Estimated GFR (MDRD) 183 Glucose 93 Calcium 9.3 Total Bilirubin 1.1 H AST 34 ALT 23 Alkaline Phosphatase 82 Troponin I High Sens 2.6 Total Protein 7.5 Albumin 4.3 Globulin 3.2 Albumin/Globulin Ratio 1.3 Lipase 31 PD Medical Decision Making - ED course ED course: 32yF p/w palpitations c/w alcohol withdrawal. ekg, cbc, abdominal panel, troponin, cxr noncontributory. ativan provided and return precautions given. f/u with pcp. Departure - Departure Disposition: 01 Home, Self Care Clinical Impression: Alcohol withdrawal Condition: Stable Instructions: Lorazepam tablets Comments: You were seen in the emergency department for medical evaluation. Your labwork, ekg, and chest xray uncovered no emergent conditions. Please follow-up with your primary care provider and return to the emergency department if you have any new or worsening symptoms or other concerns.
== END 2023-01-27 08:24 | disposition home or self-care (01) ==
LOC: EDUNIT# → ED 04:13
DX: F10.239 Alcohol dependence with withdrawal, unspecified (principal)
CPT/HCPCS: 36415; 71046; 80053; 83690; 84484; 85025; 93005; 99283; 99284; J8499

== ENCOUNTER 2023-05-19 12:28 | Emergency (ER) | payer MEDICAID ==
[2023-05-19 12:52] LABS: BASOPHILS # (AUTO) 0.1 10^3/uL (0.0-0.1); BASOPHILS % (AUTO) 0.9 %; EOSINOPHILS # (AUTO) 0.1 10^3/uL (0.0-0.7); EOSINOPHILS % (AUTO) 1.6 %; HCT - HEMATOCRIT 42.2 % (37.0-47.0); HGB - HEMOGLOBIN 14.1 g/dL (12.0-16.0); LYMPHOCYTES # (AUTO) 1.2 10^3/uL (1.5-3.5); LYMPHOCYTES % (AUTO) 16.9 %; MEAN CORPUSCULAR HEMOGLOBIN 30.6 pg (27.0-31.0); MEAN CORPUSCULAR HGB CONC 33.4 g/dL (32.0-36.0); MEAN CORPUSCULAR VOLUME 91.5 fL (81.0-99.0); MEAN PLATELET VOLUME 10.6 fL (7.9-10.8); MONOCYTES # (AUTO) 0.8 10^3/uL (0.0-1.0); MONOCYTES % (AUTO) 10.8 %; NEUTROPHILS # (AUTO) 4.8 10^3/uL (1.5-6.6); NEUTROPHILS % (AUTO) 69.5 %; PLT - PLATELET COUNT 120 10^3/uL (130-450); RED BLOOD COUNT 4.61 10^6/uL (4.20-5.40); RED CELL DISTRIBUTION WIDTH 14.9 % (12.0-15.0); WHITE BLOOD COUNT 6.9 x10^3/uL (4.8-10.8)
[2023-05-19] MEDS ORDERED: SODIUM CHLORIDE 0.9% 1,000 ML IV STA ×2 (13:28→19:20)
[2023-05-19] MEDS ORDERED: ONDANSETRON 4 MG/2 ML VIAL IVP STA ×2 (13:30→21:00)
[2023-05-19] MEDS ORDERED: MORPHINE 2 MG/ML CARPUJECT IVP STA (13:30)
[2023-05-19 13:34] LABS: POTASSIUM 3.3 mmol/L (3.5-5.0)
[2023-05-19 13:35] LABS: CALCIUM 8.8 mg/dL (8.5-10.3); CREATININE 0.6 mg/dL (0.4-1.0)
[2023-05-19 13:36] LABS: ALBUMIN 4.3 g/dL (3.2-5.5); ALBUMIN/GLOBULIN RATIO 1.2 (1.0-2.2); BILIRUBIN,TOTAL 1.7 mg/dL (0.2-1.0); TOTAL PROTEIN 7.9 g/dL (6.7-8.2)
[2023-05-19] MEDS ORDERED: iohexoL-300 100 ML VIAL ONE (13:40)
--- NOTE | 2023-05-19 13:45 | ED Physician Documentation ---
PD HPI ABD PAIN - Stated complaint Stated Complaint: ABD PX,NAUSEA,FEVER - Chief complaint Chief Complaint: Abd Pain - History obtained from History obtained from: Patient - Additional information Additional information: Patient is a 32-year-old female presenting for evaluation of right upper quadrant pain that has been present since around 11:00 this morning. Patient describes the pain as sharp and feels like a stabbing sensation. She has associated nausea and bilious emesis with several episodes this morning. She denies blood in emesis. She reports having a little bit of discomfort yesterday but it has worsened today. Reports having one glass of wine today at [facility] with friends. Also feels some pain in her back.No fevers, chest pain, difficulty breathing. No UTI symptoms. Denies a history of prior abdominal surgeries.Reports feeling febrile this morning. Did not take Motrin or Tylenol prior to arrival. Review of Systems Constitutional: reports: Fever Cardiac: denies: Chest pain / pressure Respiratory: denies: Dyspnea GI: reports: Abdominal Pain, Nausea, Vomiting. denies: Bloody / black stool : reports: Dysuria PD PAST MEDICAL HISTORY - Past Medical History Cardiovascular: Other Respiratory: Asthma Neuro: Peripheral neuropathy, Seizure disorder Endocrine/Autoimmune: None GI: GERD, Hepatitis HOSPICE FELLOW: None : None HEENT: None Psych: Depression, Anxiety, Bipolar disorder, Other Musculoskeletal: None Derm: None - Past Surgical History Past Surgical History: Yes HEENT: Tonsil/Adenoidectomy - Present Medications Home Medications: Ambulatory Orders Medication Instructions Recorded Confirmed Gabapentin [Neurontin] 300 mg PO BID 07/06/21 01/27/23 LORazepam [Ativan] 1 mg PO Q6H PRN #10 tablet 01/27/23 - Allergies Allergies/Adverse Reactions: Allergies Allergy/AdvReac Type Severity Reaction Status Date / Time Sulfa (Sulfonamide Allergy Unknown Anaphylaxis Verified 05/19/23 12:33 Antibiotics) adhesive tape AdvReac Unknown Rash Verified 05/19/23 12:33 codeine AdvReac Unknown Nausea Verified 05/19/23 12:33 - Social History Does the pt smoke?: No Smoking Status: Never smoker Does the pt drink ETOH?: Yes Does the pt have substance abuse?: Yes - Immunizations Immunizations are current?: Yes - POLST Patient has POLST: No PD ED PE NORMAL - General General: Alert and oriented X 3, No acute distress, Well developed/nourished - HEENT HEENT: Atraumatic - Neck Neck: Supple, no meningeal sign - Cardiac Cardiac: RRR, No murmur - Respiratory Respiratory: No respiratory distress, Clear bilaterally - Abdomen Abdomen: Normal bowel sounds, Soft, Non distended, Other (Right upper quadrant and epigastric tenderness to palpation, ) - Derm Derm: Warm and dry - Neuro Neuro: Normal speech Results - Vitals Vitals: Vital Signs - 24 hr 05/19/23 05/19/23 05/19/23 12:33 15:04 17:02 Temperature 36.5 C Heart Rate 60 94 97 Respiratory 16 14 16 Rate Blood Pressure 106/60 128/77 129/84 H O2 Saturation 96 94 98 05/19/23 05/19/23 19:42 22:20 Temperature Heart Rate 89 88 Respiratory 15 16 Rate Blood Pressure 115/68 113/68 O2 Saturation 98 98 Oxygen O2 Source Room air - Labs Labs: Laboratory Tests 05/19/23 05/19/23 05/19/23 12:45 12:45 12:45 WBC 6.9 RBC 4.61 Hgb 14.1 Hct 42.2 MCV 91.5 MCH 30.6 MCHC 33.4 RDW 14.9 Plt Count 120 L MPV 10.6 Neut # (Auto) 4.8 Lymph # (Auto) 1.2 L Thomas # (Auto) 0.8 Eos # (Auto) 0.1 Baso # (Auto) 0.1 Absolute Nucleated RBC 0.00 Nucleated RBC % 0.0 Sodium 137 Potassium 3.3 L Chloride 98 L Carbon Dioxide 26 Anion Gap 13.0 BUN 8 Creatinine 0.6 Estimated GFR (MDRD) 114 Glucose 125 H Calcium 8.8 Total Bilirubin 1.7 H AST 271 H ALT 92 H Alkaline Phosphatase 127 H Total Protein 7.9 Albumin 4.3 Globulin 3.6 Albumin/Globulin Ratio 1.2 Lipase 2980 H Urine Color Urine Clarity Urine pH Ur Specific [place] Urine Protein Urine Glucose (UA) Urine Ketones Urine Occult Blood Urine Nitrite Urine Bilirubin Urine Urobilinogen Ur Leukocyte Esterase Urine RBC Urine WBC Ur Squamous Epith Cells Urine Bacteria Urine Mucus Ur Microscopic Review Urine Culture Comments Urine HCG, Qual Ethyl Alcohol 234.7 05/19/23 05/19/23 13:45 20:31 WBC RBC Hgb Hct MCV MCH MCHC RDW Plt Count MPV Neut # (Auto) Lymph # (Auto) Thomas # (Auto) Eos # (Auto) Baso # (Auto) Absolute Nucleated RBC Nucleated RBC % Sodium 138 Potassium 3.4 L Chloride 101 Carbon Dioxide 23 Anion Gap 14.0 H BUN 8 Creatinine 0.4 Estimated GFR (MDRD) 183 Glucose 88 Calcium 8.2 L Total Bilirubin 1.6 H AST 211 H ALT 85 H Alkaline Phosphatase 122 H Total Protein 7.2 Albumin 4.0 Globulin 3.2 Albumin/Globulin Ratio 1.3 Lipase Urine Color DARK YELLOW Urine Clarity HAZY Urine pH 6.5 Ur Specific [place] 1.025 Urine Protein 100 H Urine Glucose (UA) NEGATIVE Urine Ketones 15 H Urine Occult Blood NEGATIVE Urine Nitrite NEGATIVE Urine Bilirubin NEGATIVE Urine Urobilinogen 2 H Ur Leukocyte Esterase TRACE H Urine RBC 0-5 Urine WBC 11-25 H Ur Squamous Epith Cells MANY Squamous H Urine Bacteria Moderate H Urine Mucus Moderate Strands Ur Microscopic Review INDICATED Urine Culture Comments NOT INDICATED Urine HCG, Qual NEGATIVE Ethyl Alcohol PD Medical Decision Making - ED course Complexity details: reviewed results, re-evaluated patient, d/w patient ED course: 1824 - Reviewed findings with patient including CT recommendations for an MRI to evaluate for hepatocellular carcinoma. 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 Aware of need for admission. Pt is a 32 yo F with upper abd pain. VSS. Labs reviewed including CBC, chemistries, UA. Pt is not . LFTS abnormal. Lipase elevated. CT reviewed with abnormalities - particularly to liver. Pt does have gallstones. U/S also reviewed. No biliary duct dilatation on U/S. No fever or WBC to suggest cholecystitis. D/W Dr. Sin (General Surg) - although pt has underlying liver disease, given elevated LFTs pt should have evaluation for possible bile duct stone. Pt would also not be a surgical candidate here at [facility] due to her underlying liver disease. We will call area facilities for transfer. MRCP ordered if pt remains in ED in AM. Pt signed out to oncoming provider at shift change. Departure - Departure Disposition: 02 Transfer Acute Care Hosp Clinical Impression: Pancreatitis, Alcohol abuse, Gallstones, Abnormal LFTs Condition: Stable
[2023-05-19 13:55] LABS: GLUCOSE, URINE (UA) NEGATIVE (NEGATIVE); KETONES,URINE (UA) 15 mg/dL (NEGATIVE); LEUKOCYTE ESTERASE, URINE TRACE (NEGATIVE); NITRITE,URINE NEGATIVE (NEGATIVE); OCCULT BLOOD,URINE NEGATIVE (NEGATIVE); PH,URINE 6.5 PH (5.0-7.5); PROTEIN,URINE 100 mg/dL (NEGATIVE); UROBILINOGEN,URINE 2 E.U./dL (NORMAL)
[2023-05-19 13:58] LABS: BILIRUBIN,URINE NEGATIVE (NEGATIVE); CLARITY,URINE HAZY (CLEAR); HCG UR QUAL NEGATIVE; ICTOTEST,URINE NEGATIVE
[2023-05-19 14:02] LABS: BACTERIA,URINE Moderate /HPF (None Seen); RBC,URINE 0-5 /HPF (0-5); SQUAMOUS EPITHELIAL CELL,UR MANY Squamous (<= Few)
[2023-05-19 14:03] LABS: MUCUS,URINE Moderate Strands
[2023-05-19] MEDS ORDERED: iohexoL-300 100 ML VIAL IVP ONE (14:21)
[2023-05-19] MEDS ORDERED: HYDROmorphone 1 MG/ML CARPUJECT IVP STA ×3 (14:38→19:20)
--- NOTE | 2023-05-19 14:49 | CT Report ---
PROCEDURE: ABDOMEN/PELVIS W INDICATIONS: upper abd pain CONTRAST: 100ml Omni 300 TECHNIQUE: After the administration of IV contrast, 5 mm thick sections acquired from the diaphragms to the symp hysis. 5 mm thick coronal and sagittal reformats were acquired. For radiation dose reduction, the f ollowing was used: automated exposure control, adjustment of mA and/or kV according to patient size. COMPARISON: 08/29/2021 FINDINGS: Image quality: Good Lower chest: Basal scarring/atelectasis. There are esophageal varices. Solid organs: Diffusely heterogeneous liver with suspected fatty infiltration and numerous fibrotic b ands. Evaluation for any suspicious focal lesions is limited on single phase CT. These findings are w orse compared to prior imaging. Cholelithiasis. No pathologic dilation of the biliary tree or pancreatic duct. Borderline splenomegaly at 13 cm. No adrenal nodules. No hydronephrosis. Vessels and lymph nodes: Portal venous varices are present, worse compared to prior imaging. The main portal vein is patent. There is no abdominal aortic aneurysm. Prominent upper abdominal lymph nodes are present, often seen as a reactive process to chronic liver disease. No pathologic lymph nodes by size criteria elsewhere. Bowel and peritoneum: No evidence of small bowel obstruction. Mild ascites and diffuse mesenteric ome ntal stranding. Body wall: Unremarkable Pelvis: Right adnexal cystic lesion again seen, slightly smaller compared to 2020, measuring up to 4. 3 cm today previously 5 cm. Dominant cyst/follicle also seen in the left adnexa. Reproductive organs would be better evaluated with ultrasound if there is clinical concern. Bladder is underdistended and not well evaluated. Mild bladder wall thickening is present, consider u rinalysis correlation. Bones: No acute or suspicious osseous finding. IMPRESSION: Progressed, likely acute on chronic, liver disease and hepatitis with portal hypertension. Mild ascit es. There are esophageal varices. Heterogeneous appearance of the liver is favored represent numerous regenerative nodules, fatty infil tration, and intervening fibrotic bands. Given imaging evidence of chronic liver disease and portal h ypertension, consider liver MRI to further evaluate for any underlying lesions, notably HCC. Other findings as above. Reviewed by: Roland Gotti MD on 05/19/2023 2:47 PM PDT Approved by: Roland Gotti MD on 05/19/2023 2:47 PM PDT Station ID: [id number]
--- NOTE | 2023-05-19 17:48 | Ultrasound Report ---
PROCEDURE: Abdomen Limited INDICATIONS: RUQ pain TECHNIQUE: Real-time focused scanning was performed of the abdomen, with image documentation. COMPARISONS: CT abdomen and pelvis with contrast, 05/19/2023. Ultrasound abdomen limited, 01/29/2020. FINDINGS: Liver: Liver is normal in size and demonstrates heterogeneously increased echotexture. Gallbladder: There is a 1 cm gallstone. There is mild gallbladder wall thickening. Trace pericholecys tic progression. There is sonographic Valdovinos sign. Biliary ducts: Intrahepatic bile ducts are non-dilated. Extrahepatic bile duct caliber measures 5.5 mm. Normal is 6-7 mm or less in diameter, or 10 mm or less post-cholecystectomy. Pancreas: Visualized portions of the pancreas are sonographically normal. Right kidney: Normal in size and echotexture. Right kidney measures 11.8 cm long. No hydronephrosis or nephrolithiasis. No solid masses. No complex renal cystic lesions which require follow-up. Miscellaneous: There is a small amount of free abdominal fluid. IMPRESSION: 1. Cholelithiasis. There is gallbladder wall thickening. There is trace pericholecystic fluid and son ographic Valdovinos sign. Recommend clinical correlation for acute cholecystitis. 2. Liver demonstrates heterogeneously increased echotexture. Differential diagnoses are hepatic fatty infiltration versus other hepatocellular disease such as hepatitis. 3. A small amount of ascites. Reviewed by: Gene Younger MD on 05/19/2023 5:47 PM PDT Approved by: Gene Younger MD on 05/19/2023 5:47 PM PDT Station ID: [id number]
[2023-05-19 20:48] LABS: ALBUMIN/GLOBULIN RATIO 1.3 (1.0-2.2); BILIRUBIN,TOTAL 1.6 mg/dL (0.2-1.0); CALCIUM 8.2 mg/dL (8.5-10.3); CREATININE 0.4 mg/dL (0.4-1.0); POTASSIUM 3.4 mmol/L (3.5-5.0); TOTAL PROTEIN 7.2 g/dL (6.7-8.2)
[2023-05-19] MEDS: POTASSIUM CHLOR 10 MEQ/100 ML 10 MEQ/100 ML BAG IV SCH ×2 (21:13→22:21)
[2023-05-19] MEDS ORDERED: ONDANSETRON 4 MG/2 ML VIAL IVP PRN (22:21)
[2023-05-19] MEDS: HYDROmorphone 1 MG/ML CARPUJECT IVP PRN (22:41)
[2023-05-20] MEDS: HYDROmorphone 1 MG/ML CARPUJECT IVP PRN ×3 (01:46→08:54)
[2023-05-20 06:21] LABS: BASOPHILS % (AUTO) 0.5 %; EOSINOPHILS % (AUTO) 0.2 %; HCT - HEMATOCRIT 40.7 % (37.0-47.0); HGB - HEMOGLOBIN 12.9 g/dL (12.0-16.0); LYMPHOCYTES # (AUTO) 0.5 10^3/uL (1.5-3.5); LYMPHOCYTES % (AUTO) 11.2 %; MEAN CORPUSCULAR HEMOGLOBIN 30.5 pg (27.0-31.0); MEAN CORPUSCULAR HGB CONC 31.7 g/dL (32.0-36.0); MEAN CORPUSCULAR VOLUME 96.2 fL (81.0-99.0); MEAN PLATELET VOLUME 10.9 fL (7.9-10.8); MONOCYTES # (AUTO) 0.5 10^3/uL (0.0-1.0); MONOCYTES % (AUTO) 12.4 %; NEUTROPHILS # (AUTO) 3.2 10^3/uL (1.5-6.6); NEUTROPHILS % (AUTO) 75.5 %; PLT - PLATELET COUNT 70 10^3/uL (130-450); RED BLOOD COUNT 4.23 10^6/uL (4.20-5.40); RED CELL DISTRIBUTION WIDTH 15.1 % (12.0-15.0); WHITE BLOOD COUNT 4.3 x10^3/uL (4.8-10.8)
[2023-05-20 06:51] LABS: BILIRUBIN,DIRECT 0.7 mg/dL (0.1-0.5); BILIRUBIN,TOTAL 2.4 mg/dL (0.2-1.0); CALCIUM 8.3 mg/dL (8.5-10.3); CREATININE 0.5 mg/dL (0.4-1.0); POTASSIUM 3.9 mmol/L (3.5-5.0); TOTAL PROTEIN 7.1 g/dL (6.7-8.2)
--- NOTE | 2023-05-20 07:00 | ED Physician Documentation ---
ED Addendum - Addendum Addendum: 05/20/23 06:57 The patient was signed out to me at change of shift by Dr. Duke, pending transfer to [facility] in [place] for possible ERCP and for cholecystectomy. The patient had been worked up for upper abdominal pain here in the emergency department and found to have mildly elevated LFTs and moderately elevated lipase in the setting of gallstones, which showed up on the patient's CT and ultrasound. Patient did not however show any ductal dilatation involving the common bile duct so it was unclear whether she had ductal stones. However Dr. Sin had wanted the patient to be transferred since she had underlying liver issues and Dr. Sin did not feel the surgery could be done here because of that. I was able to speak with Dr. Lopez of GI at [facility] and he stated that the patient could come over but that the case need to be discussed with surgery first. I was told by the transfer center statement distribution clerk that surgery would be paged after shift change at 6:00. At this point in time, I am still waiting to hear from the surgeon. Patient will be signed out to the oncoming emergency physician, pending final disposition.
--- NOTE | 2023-05-20 07:22 | ED Physician Documentation ---
ED Addendum - Addendum Addendum: 05/20/23 07:20 After my first addendum, I was informed that the hospitalist from [facility], Dr. Reynolds, was on the phone to hear about the patient. I did speak with her about this patient as well and she stated that they could take her since they have a bed available.
[2023-05-20] MEDS ORDERED: LACTATED RINGERS 1,000 ML IV STA (08:29)
[2023-05-20] MEDS ORDERED: DROPERIDOL 5 MG/2 ML VIAL IVP STA (08:29)
[2023-05-20] MEDS ORDERED: FAMOTIDINE 20 MG/2 ML VIAL IVP STA (08:30)
--- NOTE | 2023-05-20 09:51 | ED Physician Documentation ---
ED Addendum - Addendum Addendum: 05/20/23 09:48 The patient has had still ongoing pain in the upper abdomen, more central. Pain medications are helping. She is requesting liquids orally. Her repeat lipase had decreased this morning from 1999- 100. LFTs otherwise are not much changed. Alk phos is okay. The patient was looking at being transferred due to concern for cholecystitis with liver and GI comorbidities. An MRCP was ordered for this morning and the health technician will be able to get that done. Considerations are shortly pancreatitis based on blood test numbers and pain. Question would be whether there is some element of cholecystitis or increasing based on the CT and ultrasound showing some mild wall thickening in the stone in the neck. The MRCP may help in deciding if there is any ductal process as well. Otherwise if there is some element of cholecystitis, then the patient would still need transferring to another facility for supportive care needs with anesthesia and GI and not just the surgical component for the gallbladder.
[2023-05-20] MEDS ORDERED: GADOBUTROL 7.5 MMOL/7.5 ML VIAL ONE (10:54)
[2023-05-20] MEDS ORDERED: GADOBUTROL 7.5 MMOL/7.5 ML VIAL IVP ONE (11:39)
--- NOTE | 2023-05-20 11:52 | MRI Report ---
PROCEDURE: MRCP W/WO INDICATIONS: biliary obstruction CONTRAST: gadavist 6.1ml TECHNIQUE: Coronal ultra fast SE through the abdomen, axial 2-D spoiled GE in- and [id number], and breath-hold T2 FSE with fat saturation through the biliary system and pancreas. Oblique coronal and axial thin- slice ultra fast SE, radial thick-slab ultra fast SE centered on the extrahepatic bile ducts. COMPARISON: CT 05/19/2023, ultrasound 05/19/2023 FINDINGS: Image quality: Excellent. Gallbladder: Diffuse wall thickening. Known stone is not visualized.. Biliary tree: Nondilated. Pancreas: No pancreatic ductal dilation. Lung bases and heart: Unremarkable. Liver: There is a macrolobulated contour. Significant nodular signal dropout on the out of phase sequ ence. Fibrotic bands present. Evaluation for hepatocellular carcinoma is limited by the heterogeneous intensity on the contrast enhanced sequences. Spleen: Enlarged. Adrenals: No adrenal nodule. Kidneys and ureters: No hydronephrosis. No renal cystic lesion which requires follow up. No solid mas s. Bowel and peritoneum: No bowel distension. Small volume ascites. Lymph nodes: No central or retroperitoneal adenopathy. Vessels: No infrarenal aortic aneurysm. Portosystemic collaterals present. Bones: No aggressive osseous abnormality. Other: No significant ventral hernia. IMPRESSION: Suspect [place] cirrhosis, given the macrolobulated contour and significant nodular signal dropout on th e out of phase sequence. Secondary evidence of portal hypertension given sporadically, portosystemic collaterals and small volume ascites. GI referral recommended if not already performed. Suboptimal evaluation for hepatocellular carcinoma given heterogeneous intensity and presence of fibr otic bands. Diffuse gallbladder wall thickening. No hydrops. Gallbladder wall thickening likely due to underlying liver disease, less likely acute cholecystitis. Reviewed by: Umesh Mar on 05/20/2023 11:51 AM PDT Approved by: Umesh Mar on 05/20/2023 11:51 AM PDT Station ID: [id number]
[2023-05-20 13:25] VITALS: BP 167/94
== END 2023-05-20 13:48 | disposition home or self-care (01) ==
LOC: ED 12:28
DX: K85.90 Acute pancreatitis without necrosis or infection, unspecified (principal); F10.10 Alcohol abuse, uncomplicated; Y90.7 Blood alcohol level of 200-239 mg/100 ml; K80.20 Calculus of gallbladder without cholecystitis without obstruction; R79.89 Other specified abnormal findings of blood chemistry; K76.9 Liver disease, unspecified
CPT/HCPCS: 36415; 74177; 74183; 76705; 80048; 80053; 80076; 80320; 81001; 81025; 83690; 85025; 96374; 96375; 96376; 99284; 99285; A9585; J1170; J7120; Q9967; 81003; 87086

== ENCOUNTER 2023-07-18 11:47 | Outpatient (CLI) | payer MEDICAID | END 2023-07-18 11:48 | disposition critical access hospital (66) | LOC: EMS 11:47 | DX: R41.82 Altered mental status, unspecified (principal); F10.10 Alcohol abuse, uncomplicated; R22.0 Localized swelling, mass and lump, head; S09.93XA Unspecified injury of face, initial encounter; W19.XXXA Unspecified fall, initial encounter; Y92.009 Unspecified place in unspecified non-institutional (private) residence as the place of occurrence of the external cause | CPT/HCPCS: A0425; A0427; A0999 ==

== ENCOUNTER 2023-07-18 12:06 | Emergency (ER) | payer MEDICAID ==
--- NOTE | 2023-07-18 12:13 | ED Physician Documentation ---
PD HPI HEAD INJURY - Stated complaint Stated Complaint: AMS - History obtained from History obtained from: EMS - Additional information Additional information: 32-year-old woman with history of alcoholism. Went to detox for a few days and released yesterday. Reportedly went from there to [facility] and diagnosed with bilateral otitis media. Home with mom today. Mom left the house, EMS suspects maybe for 30 minutes and on return found her down in the ho altered with evidence of facial trauma. No history available from patient due to AMS. 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 : None HEENT: None Psych: Depression, Anxiety, Bipolar disorder, Other Musculoskeletal: None Derm: None - Past Surgical History Past Surgical History: Yes HEENT: Tonsil/Adenoidectomy - Present Medications Home Medications: Ambulatory Orders Medication Instructions Recorded Confirmed Gabapentin [Neurontin] 300 mg PO BID 07/06/21 07/18/23 LORazepam [Ativan] 1 mg PO Q6H PRN #10 tablet 01/27/23 07/18/23 Promethazine Supp [Phenergan Supp] 25 mg NJ Q6H PRN #10 supp 05/20/23 07/18/23 Promethazine [Phenergan] 25 mg PO Q6H PRN #20 tab 05/20/23 07/18/23 oxyCODONE [Roxicodone] 5 mg PO Q6H PRN #18 tablet 05/20/23 07/18/23 - Allergies Allergies/Adverse Reactions: Allergies Allergy/AdvReac Type Severity Reaction Status Date / Time Sulfa (Sulfonamide Allergy Unknown Anaphylaxis Verified 05/19/23 12:33 Antibiotics) adhesive tape AdvReac Unknown Rash Verified 05/19/23 12:33 codeine AdvReac Unknown Nausea Verified 05/19/23 12:33 - Social History Does the pt smoke?: No Smoking Status: Never smoker Does the pt drink ETOH?: Yes Does the pt have substance abuse?: Yes - Immunizations Immunizations are current?: Yes - POLST Patient has POLST: No PD ED PE NORMAL - Vitals Vital signs reviewed: Yes - General General: Other (She is able to say her name, but is agitated and altered. GCS 12) - HEENT HEENT: Other (Dilated pupils that are reactive and symmetric, there is an abrasion over the philtrum and some dried blood in the nares. There is swelling of the upper lip.) - Neck Neck: Other (In a collar, no obvious tenderness but maintained in the collar pending imaging given her altered mental status) - Cardiac Cardiac: RRR, No murmur - Respiratory Respiratory: No respiratory distress, Clear bilaterally - Abdomen Abdomen: Non tender - Back Back: No CVA TTP, No spinal TTP - Derm Derm: Normal color, Warm and dry - Extremities Extremities: No deformity, No tenderness to palpate - Neuro Eye Opening: Spontaneous Motor: Localizes to Pain Verbal: Inappropriate GCS Score: 12 Results - Vitals Vitals: Vital Signs - 24 hr 07/18/23 07/18/23 07/18/23 12:17 15:01 17:15 Temperature 36.5 C 36.7 C 37.1 C Heart Rate 125 H 112 H 134 H Respiratory 17 20 21 Rate Blood Pressure 124/87 H 138/82 H 124/81 H O2 Saturation 95 96 97 If not protocol 3 : Oxygen Flow, liters/minute 07/18/23 07/18/23 07/18/23 17:30 17:45 20:00 Temperature Heart Rate 137 H 142 H 104 H Respiratory 21 20 17 Rate Blood Pressure 124/81 H 126/93 H 128/78 O2 Saturation 97 98 97 If not protocol 3 3 : Oxygen Flow, liters/minute 07/18/23 07/18/23 21:00 22:00 Temperature Heart Rate 103 H 112 H Respiratory 14 25 H Rate Blood Pressure 128/87 H 114/93 H O2 Saturation 95 95 If not protocol : Oxygen Flow, liters/minute Oxygen O2 Source Room air - Labs Labs: Laboratory Tests 07/18/23 07/18/23 07/18/23 12:16 12:16 12:16 WBC 4.6 L RBC 4.46 Hgb 14.3 Hct 43.9 MCV 98.4 MCH 32.1 H MCHC 32.6 RDW 12.5 Plt Count 121 L MPV 10.6 Neut # (Auto) 3.0 Lymph # (Auto) 1.0 L [place] # (Auto) 0.6 Eos # (Auto) 0.1 Baso # (Auto) 0.0 Absolute Nucleated RBC 0.00 Nucleated RBC % 0.0 PT 13.5 H INR 1.2 Sodium 140 Potassium 4.2 Chloride 106 Carbon Dioxide 23 Anion Gap 11.0 BUN 6 Creatinine 0.3 L Estimated GFR (MDRD) 255 Glucose 98 Calcium 9.1 Magnesium Total Bilirubin 1.9 H AST 278 H ALT 132 H Alkaline Phosphatase 157 H Total Creatine Kinase Total Protein 7.8 Albumin 4.6 Globulin 3.2 Albumin/Globulin Ratio 1.4 Lipase 34 Urine Color Urine Clarity Urine pH Ur Specific [place] Urine Protein Urine Glucose (UA) Urine Ketones Urine Occult Blood Urine Nitrite Urine Bilirubin Urine Urobilinogen Ur Leukocyte Esterase Ur Microscopic Review Urine Culture Comments Urine HCG, Qual Urine Opiates Screen Ur Oxycodone Screen Urine Methadone Screen Ur Propoxyphene Screen Ur Barbiturates Screen Ur Tricyclics Screen Ur Phencyclidine Scrn Ur Amphetamine Screen U Methamphetamines Scrn U Benzodiazepines Scrn Urine Cocaine Screen U Cannabinoids Screen Ethyl Alcohol 503.6 H* SARS-CoV-2 (PCR) 07/18/23 07/18/23 07/18/23 12:16 13:34 14:00 WBC RBC Hgb Hct MCV MCH MCHC RDW Plt Count MPV Neut # (Auto) Lymph # (Auto) [place] # (Auto) Eos # (Auto) Baso # (Auto) Absolute Nucleated RBC Nucleated RBC % PT INR Sodium Potassium Chloride Carbon Dioxide Anion Gap BUN Creatinine Estimated GFR (MDRD) Glucose Calcium Magnesium 1.8 Total Bilirubin AST ALT Alkaline Phosphatase Total Creatine Kinase 45 Total Protein Albumin Globulin Albumin/Globulin Ratio Lipase Urine Color LIGHT YELLOW Urine Clarity CLEAR Urine pH 5.5 Ur Specific [place] <=1.005 Urine Protein NEGATIVE Urine Glucose (UA) NEGATIVE Urine Ketones NEGATIVE Urine Occult Blood NEGATIVE Urine Nitrite NEGATIVE Urine Bilirubin NEGATIVE Urine Urobilinogen 0.2 (NORMAL) Ur Leukocyte Esterase NEGATIVE Ur Microscopic Review NOT INDICATED Urine Culture Comments NOT INDICATED Urine HCG, Qual NEGATIVE Urine Opiates Screen NEGATIVE Ur Oxycodone Screen NEGATIVE Urine Methadone Screen NEGATIVE Ur Propoxyphene Screen NEGATIVE Ur Barbiturates Screen NEGATIVE Ur Tricyclics Screen NEGATIVE Ur Phencyclidine Scrn NEGATIVE Ur Amphetamine Screen NEGATIVE U Methamphetamines Scrn NEGATIVE U Benzodiazepines Scrn POSITIVE H Urine Cocaine Screen NEGATIVE U Cannabinoids Screen NEGATIVE Ethyl Alcohol SARS-CoV-2 (PCR) NOT DETECTED - Rads (name of study) CT of the head, face, cervical spine, and single view chest x-ray were all negative for traumatic findings except for lip swelling. She did have inci Relevant Findings:: Final report received, EMP independent interpretation of test PD Medical Decision Making - ED course ED course: 32-year-old woman presents with profound alcohol intoxication, some agitation, and evidence of facial trauma from an unwitnessed fall. Initially had to be placed in two-point nonviolent soft restraints. She seemed to be doing a little better and we discontinue the restraints at 1427, but she only lasted a couple of minutes before we had to reapply the nonviolent restraints that she was attempting to remove her IV. Mom was initially at the bedside and made aware of the diagnoses. Labs reviewed, CBC showing mild lymphopenia, INR normal, CMP showing modest alcoholic hepatitis, urinalysis normal with negative test, talk screen positive for benzodiazepines likely related to recent admission for alcohol detoxification and blood alcohol severely elevated at 503. C-collar removed 1:25 PM after completion of CT imaging Given the circumstances I believe she probably needs to go to detox whether voluntarily or involuntarily. At this point pending sobriety she can be queried and would consider DCR evaluation if unwilling to go back to detox. Care to Dr. Leyva at 10 PM shift change pending sobriety, DCR versus voluntary detox tomorrow. The nurse is actively trying to get her out of restraints. She is starting to feel shaky and wanted some IV Ativan and 0.5 mg was ordered. - Critical Care Time(min): 60 Time Includes: Direct patient care, Review records, Reassess patient, Document care, Coordinate care, Family consult for tx dec Data interpretation: Labs, Pulse ox Departure - Departure Clinical Impression: Alcohol intoxication delirium, Alcoholic liver disease Facial contusion Qualifiers: Encounter type: initial encounter Qualified Code(s): S00.83XA - Contusion of other part of head, initial encounter
[2023-07-18 12:23] LABS: BASOPHILS % (AUTO) 0.9 %; EOSINOPHILS # (AUTO) 0.1 10^3/uL (0.0-0.7); EOSINOPHILS % (AUTO) 1.3 %; HCT - HEMATOCRIT 43.9 % (37.0-47.0); HGB - HEMOGLOBIN 14.3 g/dL (12.0-16.0); LYMPHOCYTES % (AUTO) 20.5 %; MEAN CORPUSCULAR HEMOGLOBIN 32.1 pg (27.0-31.0); MEAN CORPUSCULAR HGB CONC 32.6 g/dL (32.0-36.0); MEAN CORPUSCULAR VOLUME 98.4 fL (81.0-99.0); MEAN PLATELET VOLUME 10.6 fL (7.9-10.8); MONOCYTES # (AUTO) 0.6 10^3/uL (0.0-1.0); MONOCYTES % (AUTO) 12.1 %; NEUTROPHILS % (AUTO) 64.8 %; PLT - PLATELET COUNT 121 10^3/uL (130-450); RED BLOOD COUNT 4.46 10^6/uL (4.20-5.40); RED CELL DISTRIBUTION WIDTH 12.5 % (12.0-15.0); WHITE BLOOD COUNT 4.6 x10^3/uL (4.8-10.8)
[2023-07-18 12:27] LABS: INR 1.2 (0.8-1.2); PT - PROTHROMBIN TIME 13.5 secs (9.9-12.6)
--- NOTE | 2023-07-18 12:30 | XRAY Report ---
PROCEDURE: Chest 1 View X-Ray INDICATIONS: trauma TECHNIQUE: One view of the chest was acquired. COMPARISON: Chest x-ray 01/27/2023. FINDINGS: Surgical changes and devices: None. Lungs and pleura: No pleural effusions or pneumothorax. Low lung volumes.. Mediastinum: Mediastinal contours appear normal. Heart size is normal. Bones and chest wall: No suspicious bony lesions. Overlying soft tissues appear unremarkable. IMPRESSION: No acute cardiopulmonary process. Low lung volumes. Reviewed by: Jose M Brenner MD on 07/18/2023 12:28 PM PDT Approved by: Jose M Brenner MD on 07/18/2023 12:28 PM PDT Station ID: [id number]
--- OUTSIDE RECORDS SUMMARY | 2023-07-18 12:32 | EXTERNAL MEDICAL SUMMARY RPT | Continuity of Care Document ---
Author Name Unknown Address [address] [place] [address] Phone Organization [facility] Address [address] [place] [address] Phone Care Team Providers Care Pattern Room Attendant Name Role Phone TylerSuzie leon Unavailable Unavailable Allergies and Intolerances date description facility reaction severity (no date) Mild [facility] (no reaction) (no se verity) (no date) Sulfa (Sulfonamide Antibiotics) [facility] (no reaction) (no severity) (no date) adhesive tape [facility] (no reaction) (no severity) (no date) codeine [facility] (no reaction) (no se verity) (no date) medroxyprogesterone [facility] (no reactio n) (no severity) Problems date description facility 2023-07-08 00:00 Patient left after triage [facility] 2023-07-08 00:00 Patient left before evaluation by physician [facility] Social History date description facility 2023-07-08 00:00 Never smoked tobacco (finding) [facility] Vital Signs date measurement value units 2023-07-08 00:00 BMI 21.1 kg/m2 2023-07-08 00:00 BP_diastolic 73 mmHg 2023-07-08 00:00 BP_systolic 128 mmHg 2023-07-08 00:00 heart_rate 102 /min 2023-07-08 00:00 height_metric 170.18 cm 2023-07-08 00:00 height_standard 67 in 2023-07-08 00:00 o2_saturation 95 % 2023-07-08 00:00 respiration_rate 18 /min 2023-07-08 00:00 temperature_metric 36.67 C 2023-07-08 00:00 temperature_standard 98 F 2023-07-08 00:00 weight_metric 61.23 kg 2023-07-08 00:00 weight_standard 134.99 lb
[2023-07-18 12:34] LABS: ALBUMIN 4.6 g/dL (3.2-5.5); ALBUMIN/GLOBULIN RATIO 1.4 (1.0-2.2); BILIRUBIN,TOTAL 1.9 mg/dL (0.2-1.0); CALCIUM 9.1 mg/dL (8.5-10.3); CREATININE 0.3 mg/dL (0.6-1.3); POTASSIUM 4.2 mmol/L (3.5-4.5); TOTAL PROTEIN 7.8 g/dL (6.4-8.9)
[2023-07-18 12:37] LABS: ETOH - ETHANOL 503.6 mg/dL
--- NOTE | 2023-07-18 13:15 | CT Report ---
PROCEDURE: MAXILLOFACIAL WO INDICATIONS: Facial trauma TECHNIQUE: Noncontrast 1.5 mm thick axial images acquired from the mandible through the frontal sinuses, with co jung and sagittal reformatting. For radiation dose reduction, the following was used: automated ex posure control, adjustment of mA and/or kV according to patient size. COMPARISON: Correlation is made with the accompanying CT examinations. FINDINGS: Image quality: Motion artifact is noted. There is artifact associated with the metallic hardware. Bones and teeth: Orbital gonzalez are intact. Sinus gonzalez show no fracture or deformity. Nasal bones and septum are intact. Visualized portions of the mandible demonstrate no fractures or subluxation. Zygomatic arches are intact. Pterygoid plates are intact. Visualized portions of the skull base an d auditory canals are intact. Sinuses: Moderate mucosal thickening is seen within the right frontal sinus. The right frontal sinus is poorly developed. Mild mucosal thickening in Mastoid air cells are aerated. The ostiomeatal compl exes are patent, yet they are highly constitutionally narrowed and are further narrowed by soft tissu e thickening. The ostiomeatal complexes and the medial gonzalez of the maxillary sinuses are demineraliz ed. Soft tissues: Soft tissue swelling can be seen involving the nose in the upper lip. Vascular: Visualized vascular structures appear normal in the absence of contrast. Bony vascular fo ramina and canals are intact. IMPRESSION: There is soft tissue swelling seen involving the nose and the upper lip. No definite associated fracture can be seen. Additional findings: Underlying chronic paranasal sinus disease Highly narrowed ostiomeatal complexes Poorly developed right frontal sinus Reviewed by: Dilan Martel MD on 07/18/2023 12:13 PM MALIA Approved by: Dilan Martel MD on 07/18/2023 12:13 PM MALIA Station ID: [id number]
--- NOTE | 2023-07-18 13:16 | CT Report ---
PROCEDURE: CERVICAL SPINE WO INDICATIONS: trauma ams TECHNIQUE: Noncontrast 3 mm thick sections acquired from the skull base to the T4 level. Sagittal and coronal r eformats were then constructed. For radiation dose reduction, the following was used: automated exp osure control, adjustment of mA and/or kV according to patient size. COMPARISON: Correlation is made with the accompanying CT examinations. FINDINGS: Image quality: Excellent. Bones: No fractures or dislocations. Visualized superior ribs are intact. There is mild disc space narrowing with associated endplate irregularity and sclerosis at C6-C7. Mild er degenerative changes are seen elsewhere. Soft tissues: Prevertebral soft tissues are normal in thickness. No paravertebral hematomas. No ap ical pneumothoraces. Soft tissue material can be seen within the deep aspects of the external auditory canals. IMPRESSION: Negative for cervical spine fracture. Focal C6-C7 degenerative change. Presumed cerumen seen involving the external auditory canals. Reviewed by: Dilan Martel MD on 07/18/2023 12:14 PM MALIA Approved by: Dilan Martel MD on 07/18/2023 12:14 PM MALIA Station ID: [id number]
--- NOTE | 2023-07-18 13:17 | CT Report ---
PROCEDURE: HEAD WO INDICATIONS: Head trauma TECHNIQUE: Noncontrast 4.5 mm thick angled axial sections acquired from the foramen magnum to the vertex. For r adiation dose reduction, the following was used: automated exposure control, adjustment of mA and/or kV according to patient size. COMPARISON: Correlation is made with the accompanying CT examinations. FINDINGS: Image quality: Study limited by inhomogeneous reconstruction algorithm, with loss of signal anteriorl y. Motion artifact is noted. CSF spaces: Basal cisterns are patent. No extra-axial fluid collections. Ventricles are normal in size and shape. Brain: No midline shift. No intracranial masses or hemorrhage. Palumbo-white matter interface is norm al. Skull and face: Calvarium and visualized facial bones are intact, without suspicious lesions. Sinuses: Visualized sinuses and mastoids are clear. IMPRESSION: Technically limited study, yet without charles acute intracranial hemorrhage or other significant intra cranial abnormality. Reviewed by: Dilan Martel MD on 07/18/2023 12:16 PM MALIA Approved by: Dilan Martel MD on 07/18/2023 12:16 PM MALIA Station ID: [id number]
[2023-07-18 13:52] LABS: MAGNESIUM 1.8 mg/dL (1.7-2.3)
[2023-07-18 14:30] LABS: MUDS CUTOFF CONCENTRATIONS CUTOFF CONC BELOW:
[2023-07-18 14:35] LABS: BILIRUBIN,URINE NEGATIVE (NEGATIVE); GLUCOSE, URINE (UA) NEGATIVE (NEGATIVE); KETONES,URINE (UA) NEGATIVE (NEGATIVE); LEUKOCYTE ESTERASE, URINE NEGATIVE (NEGATIVE); NITRITE,URINE NEGATIVE (NEGATIVE); OCCULT BLOOD,URINE NEGATIVE (NEGATIVE); PH,URINE 5.5 PH (5.0-7.5); PROTEIN,URINE NEGATIVE (NEGATIVE); UROBILINOGEN,URINE 0.2 (NORMAL) E.U./dL (NORMAL)
[2023-07-18 14:37] LABS: CLARITY,URINE CLEAR (CLEAR); HCG UR QUAL NEGATIVE
[2023-07-18 14:46] LABS: AMPHETAMINE SCREEN,URINE NEGATIVE (NEGATIVE); BARBITURATE SCREEN,UR NEGATIVE (NEGATIVE); BENZODIAZEPINES SCREEN, URINE POSITIVE (NEGATIVE); COCAINE SCREEN URINE NEGATIVE (NEGATIVE); METHADONE SCREEN, URINE NEGATIVE (NEGATIVE); METHAMPHETAMINES SCREEN, URINE NEGATIVE (NEGATIVE); OPIATE SCREEN, URINE NEGATIVE (NEGATIVE); OXYCODONE SCREEN, URINE NEGATIVE (NEGATIVE); PROPOXYPHENE SCREEN, URINE NEGATIVE (NEGATIVE); THC CANNABINOID SCREEN, URINE NEGATIVE (NEGATIVE); TRICYCLIC ANTIDEPRESSANT,URINE NEGATIVE (NEGATIVE)
--- NOTE | 2023-07-18 17:12 | ED Physician Documentation ---
Restraint [id number] - Immediate Situation Face to Face Evaluation Date: 07/18/23 Face to Face Evaluation Time: 17:10 Restraint Classification: Violent, physical Restraint Type: Locked extremity - Patient's Reaction & Behaviors Safety: Non-compliant, Unable to Follow Commands Verbal: Crying/Tearful, Demanding Harm: Potential harm to self, Potential harm to others Physical: Aggressive behavior, Kicking Other: Disruption of therapy - Behavioral Condition Attitude: Indifferent Behavior: Belligerent, Agitated Orientation: Disoriented to all Mood: Depressed, Angry, Anxious - Evaluation System status changes from initial ED note: Was in soft restraints but she had gotten out of them so escalation to locked restraints was deemed necessary. Pertinent History/Illicit Drugs/Medications/Results: Severe alcohol intoxication - Plan Need to Continue or Terminate Violent or Chemical Restraint: Hopefully with sobriety will be able to discontinue restraints when she is cooperative with care.
[2023-07-18] MEDS ORDERED: KETAMINE 500 MG/10 ML VIAL IM STA (17:14)
[2023-07-18] MEDS ORDERED: KETAMINE 500 MG/10 ML VIAL IV STA (17:14)
[2023-07-18] MEDS ORDERED: OLANZapine 10 MG VIAL IM ONE (17:14)
--- NOTE | 2023-07-18 17:41 | ED Physician Documentation ---
Restraint [id number] - Immediate Situation Face to Face Evaluation Date: 07/18/23 Face to Face Evaluation Time: 17:39 Restraint Classification: Violent, chemical Restraint Type: Chemical - Patient's Reaction & Behaviors Safety: Non-compliant Verbal: Screaming/Yelling, Swearing Harm: Potential harm to self, Potential harm to others Physical: Aggressive behavior, Fighting restraints Other: Attempting removal of medically necessary device(s) - Behavioral Condition Attitude: Indifferent Behavior: Belligerent, Agitated, Withdrawn Orientation: Time, Situation Mood: Depressed, Angry, Anxious - Evaluation System status changes from initial ED note: She had been in hard restraints but behavior escalated and required chemical restraint. Pertinent History/Illicit Drugs/Medications/Results: Severe alcohol intoxication - Plan Need to Continue or Terminate Violent or Chemical Restraint: Hopefully with sobriety restraint will no longer be necessary.
--- NOTE | 2023-07-18 20:46 | ED Physician Documentation ---
Restraint [id number] - Immediate Situation Face to Face Evaluation Date: 07/18/23 Face to Face Evaluation Time: 20:45 Restraint Classification: Violent, physical Restraint Type: Locked extremity - Patient's Reaction & Behaviors Safety: Non-compliant Verbal: Demanding Harm: Potential harm to self Physical: Aggressive behavior, Fighting restraints - Behavioral Condition Attitude: Indifferent Behavior: Agitated Orientation: Situation Mood: Angry - Evaluation System status changes from initial ED note: She has been better since the administration of chemical restraints but now waking up and starting to verbalize wanting to leave. Pertinent History/Illicit Drugs/Medications/Results: Severe alcohol intoxication - Plan Need to Continue or Terminate Violent or Chemical Restraint: Hopefully pending sobriety restraints will be discontinued.
[2023-07-18] MEDS ORDERED: LORazepam 2 MG/ML VIAL IVP STA ×2 (21:42→22:31)
--- NOTE | 2023-07-18 22:32 | ED Physician Documentation ---
ED Addendum - Addendum Addendum: 07/18/23 22:31 Patient is requesting medication to help with anxiety and to help her sleep. I ordered 2mg IV lorazepam for anxiety, restlessness. This is not ordered as chemical restraint.
[2023-07-19] MEDS ORDERED: IBUPROFEN 600 MG TABLET PO STA (00:17)
[2023-07-19 07:39] LABS: CALCIUM 9.2 mg/dL (8.5-10.3); CREATININE 0.5 mg/dL (0.6-1.3); MAGNESIUM 1.6 mg/dL (1.7-2.3); POTASSIUM 3.8 mmol/L (3.5-4.5)
[2023-07-19] MEDS ORDERED: NICOTINE 14 MG PATCH TOP STA (10:30)
[2023-07-19] MEDS ORDERED: NEOMYCIN/POLYMYX/HC OTIC DROPS EACHEAR STA (10:43)
[2023-07-19] MEDS ORDERED: ACETAMINOPHEN 325 MG TABLET PO STA (10:43)
[2023-07-19] MEDS ORDERED: LORazepam 2 MG/ML VIAL IVP STA (12:49)
--- NOTE | 2023-07-19 18:23 | ED Physician Documentation ---
ED Addendum - Addendum Addendum: 07/19/23 18:21 The patient has not had any problems through the day. She remained in the ER and evaluated by LADONNA Gaspar. The patient was felt to be in need of help was of voluntary. They were looking at facilities to take the patient for combination of mood disorder/psych theatric as well as substance abuse/alcohol. No complications through the day. I had written for baseline medications to help with alcohol withdrawal presuming she would have some symptoms. Vitals have remained stable. At this point some facilities are still reviewing the patient's packet for acceptance. No determination for disposition at this point as yet.
[2023-07-19] MEDS: LORazepam 1 MG TABLET PO PRN (18:39)
[2023-07-19] MEDS ORDERED: NAPROXEN 250 MG TABLET PO SCH (22:00)
[2023-07-20] MEDS ORDERED: IBUPROFEN 400 MG TABLET PO STA (02:40)
[2023-07-20] MEDS: LORazepam 1 MG TABLET PO PRN (02:49)
[2023-07-20] MEDS ORDERED: AMOX/CLAV 875 MG/125 MG TABLET PO SCH (09:00)
[2023-07-20 11:23] VITALS: BP 127/93; O2SAT 99
--- NOTE | 2023-07-20 13:54 | ED Physician Documentation ---
ED Addendum - Addendum Addendum: 07/20/23 13:54 Seen by the social sciences instructor. At this point she fits no criteria for involuntary hospitalization and an extensive plan was formulated by the social sciences instructor with close follow-up and family has taken all of the alcohol out of the house. Patient comfortable with discharge and supportive family is at the bedside. Disposition: Discharged home Condition: Stable Diagnosis: 1. Alcohol abuse 2. Alcohol intoxication with delirium 3. Facial abrasion
== END 2023-07-20 14:06 | disposition home or self-care (01) ==
LOC: EDUNIT# → ED 12:06
DX: F10.121 Alcohol abuse with intoxication delirium (principal); Y90.8 Blood alcohol level of 240 mg/100 ml or more; K70.9 Alcoholic liver disease, unspecified; F41.9 Anxiety disorder, unspecified; S00.83XA Contusion of other part of head, initial encounter; S00.511A Abrasion of lip, initial encounter; W18.30XA Fall on same level, unspecified, initial encounter; W19.XXXA Unspecified fall, initial encounter; Y92.009 Unspecified place in unspecified non-institutional (private) residence as the place of occurrence of the external cause; Z78.1 Physical restraint status; Z20.822 Contact with and (suspected) exposure to COVID-19
CPT/HCPCS: 36415; 70450; 70486; 71045; 72125; 80048; 80053; 80306; 80320; 81003; 81025; 82550; 83690; 83735; 85025; 85610; 87635; 96372; 96374; 96376; 99285; 99291; A9270; J2060; J8499; 81001; 87086

== ENCOUNTER 2023-09-10 15:33 | Outpatient (CLI) | payer MEDICAID ==
[2023-09-10 16:15] LABS: ALBUMIN 4.3 g/dL (3.2-5.5); BILIRUBIN,DIRECT 0.61 mg/dL (0.03-0.18); BILIRUBIN,TOTAL 1.5 mg/dL (0.2-1.0); TOTAL PROTEIN 7.3 g/dL (6.4-8.9)
== END 2023-09-10 15:34 | disposition home or self-care (01) ==
LOC: LAB 15:33
PROVIDERS: ATTEND Internal Medicine
DX: R79.89 Other specified abnormal findings of blood chemistry (principal)
CPT/HCPCS: 36415; 80076

== ENCOUNTER 2024-01-28 08:00 | Outpatient (CLI) | payer MEDICAID ==
[2024-01-28 16:37] LABS: BILIRUBIN,URINE NEGATIVE (NEGATIVE); GLUCOSE, URINE (UA) NEGATIVE (NEGATIVE); KETONES,URINE (UA) NEGATIVE (NEGATIVE); LEUKOCYTE ESTERASE, URINE NEGATIVE (NEGATIVE); NITRITE,URINE NEGATIVE (NEGATIVE); OCCULT BLOOD,URINE NEGATIVE (NEGATIVE); PH,URINE 7.5 PH (5.0-7.5); PROTEIN,URINE NEGATIVE (NEGATIVE); UROBILINOGEN,URINE 0.2 (NORMAL) E.U./dL (NORMAL)
[2024-01-28 16:41] LABS: CLARITY,URINE CLEAR (CLEAR)
[2024-01-28 16:49] LABS: BACTERIA,URINE None Seen /HPF (None Seen); RBC,URINE 0-5 /HPF (0-5); SQUAMOUS EPITHELIAL CELL,UR RARE Squamous (<= Few); WBC,URINE 0-3 /HPF (0-5)
== END 2024-01-28 23:59 | disposition home or self-care (01) ==
LOC: LAB.WC 08:00
PROVIDERS: ATTEND Obstetrics & Gynecology
DX: Z34.80 Encounter for supervision of other normal pregnancy, unspecified trimester (principal)
CPT/HCPCS: 81001; 87086

== ENCOUNTER 2024-02-10 11:52 | Outpatient (CLI) | payer MEDICAID ==
--- NOTE | 2024-02-10 12:57 | Ultrasound Report ---
PROCEDURE: OB 1st Trimester INDICATIONS: POSITIVE TEST OUTSIDE/PRIOR DATING DATA: Last menstrual period (LMP): 12/07/2023. LMP-based estimated date of delivery (RITA): 09/12/2024. First dating scan (date and location): Today's exam. Estimated date of delivery (RITA) from first dating scan: 09/21/2024. TECHNIQUE: Real-time scanning was performed of the fetus and maternal pelvic organs, with image documentation. COMPARISON: None. FINDINGS: Intrauterine gestational sac present. Embryo: Present, measuring 1.58 cm, 8 weeks 0 days Heart rate: 167 bpm. Other: No perigestational fluid collection. Measurement variability in dating: +/- 4 weeks by LMP, +/- 7 days by mean sac diameter (use before 6 weeks gestation if crown-rump length not able to be measured), +/- 5 days by crown-rump length (6-12 weeks gestation). Maternal organs: Ovaries appear within normal limits. Left-sided corpus luteum is present. IMPRESSION: Single living intrauterine at 8 weeks 0 days, RITA of 09/21/2024 according to today's exam. Reviewed by: Umesh Mar MD on 02/10/2024 12:55 PM PDT Approved by: Umesh Mar MD on 02/10/2024 12:55 PM PDT Station ID: [id number]
== END 2024-02-10 11:53 | disposition home or self-care (01) ==
LOC: DI 11:52
PROVIDERS: ATTEND Obstetrics & Gynecology
DX: Z34.81 Encounter for supervision of other normal pregnancy, first trimester (principal)

== ENCOUNTER 2024-02-16 08:00 | Outpatient (CLI) | payer MEDICAID ==
[2024-02-17 14:08] LABS: CHLAMYDIA TRACHOMATIS DNA NEGATIVE (NEGATIVE); NEISSERIA GONORRHOEAE DNA NEGATIVE (NEGATIVE)
[2024-02-17 22:31] LABS: BACTERIAL VAGINOSIS DNA POSITIVE (NEGATIVE); CANDIDA GLABRATA DNA NEGATIVE (NEGATIVE); CANDIDA GROUP DNA NEGATIVE (NEGATIVE); CANDIDA KRUSEI DNA NEGATIVE (NEGATIVE); TRICHOMONAS VAGINALIS DNA NEGATIVE (NEGATIVE)
== END 2024-02-16 23:59 | disposition home or self-care (01) ==
LOC: LAB.WC 08:00
PROVIDERS: ATTEND Obstetrics & Gynecology
DX: N89.8 Other specified noninflammatory disorders of vagina (principal)
CPT/HCPCS: 81514; 87491; 87591; 87661; 87801

== ENCOUNTER 2024-02-18 11:26 | Outpatient (CLI) | payer MEDICAID ==
[2024-02-18 11:45] LABS: BASOPHILS % (AUTO) 0.5 %; EOSINOPHILS # (AUTO) 0.1 10^3/uL (0.0-0.7); EOSINOPHILS % (AUTO) 0.8 %; HCT - HEMATOCRIT 35.8 % (37.0-47.0); HGB - HEMOGLOBIN 12.1 g/dL (12.0-16.0); LYMPHOCYTES % (AUTO) 16.3 %; MEAN CORPUSCULAR HEMOGLOBIN 28.9 pg (27.0-31.0); MEAN CORPUSCULAR HGB CONC 33.8 g/dL (32.0-36.0); MEAN CORPUSCULAR VOLUME 85.6 fL (81.0-99.0); MEAN PLATELET VOLUME 10.2 fL (7.9-10.8); MONOCYTES # (AUTO) 0.6 10^3/uL (0.0-1.0); MONOCYTES % (AUTO) 9.3 %; NEUTROPHILS # (AUTO) 4.5 10^3/uL (1.5-6.6); NEUTROPHILS % (AUTO) 72.8 %; PLT - PLATELET COUNT 164 10^3/uL (130-450); RED BLOOD COUNT 4.18 10^6/uL (4.20-5.40); RED CELL DISTRIBUTION WIDTH 12.9 % (12.0-15.0); WHITE BLOOD COUNT 6.2 x10^3/uL (4.8-10.8)
[2024-02-18 12:17] LABS: ALBUMIN 4.3 g/dL (3.2-5.5); ALBUMIN/GLOBULIN RATIO 1.7 (1.0-2.2); BILIRUBIN,TOTAL 0.6 mg/dL (0.2-1.0); CALCIUM 9.8 mg/dL (8.5-10.3); CREATININE 0.4 mg/dL (0.6-1.3); POTASSIUM 3.6 mmol/L (3.5-4.5); TOTAL PROTEIN 6.9 g/dL (6.4-8.9)
[2024-02-19 05:13] LABS: HBsAG SCREEN Negative (Negative); HIV SCREEN 4TH GENERATION Non Reactive (Non Reactive)
[2024-02-19 09:09] LABS: VARICELLA-ZOSTER AB IGG 2621 index (Immune >165)
[2024-02-20 00:08] LABS: HCV AB Non Reactive (Non Reactive)
== END 2024-02-18 11:27 | disposition home or self-care (01) ==
LOC: LAB 11:26
PROVIDERS: ATTEND Obstetrics & Gynecology
DX: L40.9 Psoriasis, unspecified (principal); H66.91 Otitis media, unspecified, right ear; Z36.89 Encounter for other specified antenatal screening; Z34.80 Encounter for supervision of other normal pregnancy, unspecified trimester
CPT/HCPCS: 36415; 80053; 85025; 86592; 86762; 86787; 86803; 86850; 86900; 86901; 87340; 87389

== ENCOUNTER 2024-02-23 16:11 | Outpatient (CLI) | payer MEDICAID ==
[2024-02-23 16:39] LABS: BASOPHILS % (AUTO) 0.6 %; EOSINOPHILS # (AUTO) 0.1 10^3/uL (0.0-0.7); EOSINOPHILS % (AUTO) 1.3 %; HCT - HEMATOCRIT 34.6 % (37.0-47.0); HGB - HEMOGLOBIN 11.4 g/dL (12.0-16.0); LYMPHOCYTES # (AUTO) 1.4 10^3/uL (1.5-3.5); MEAN CORPUSCULAR HEMOGLOBIN 28.6 pg (27.0-31.0); MEAN CORPUSCULAR HGB CONC 32.9 g/dL (32.0-36.0); MEAN CORPUSCULAR VOLUME 86.7 fL (81.0-99.0); MONOCYTES # (AUTO) 0.4 10^3/uL (0.0-1.0); NEUTROPHILS # (AUTO) 3.4 10^3/uL (1.5-6.6); NEUTROPHILS % (AUTO) 63.7 %; PLT - PLATELET COUNT 174 10^3/uL (130-450); RED BLOOD COUNT 3.99 10^6/uL (4.20-5.40); RED CELL DISTRIBUTION WIDTH 12.8 % (12.0-15.0); WHITE BLOOD COUNT 5.3 x10^3/uL (4.8-10.8)
== END 2024-02-23 16:12 | disposition home or self-care (01) ==
LOC: LAB 16:11
PROVIDERS: ATTEND Internal Medicine
DX: H66.3X3 Other chronic suppurative otitis media, bilateral (principal); D69.6 Thrombocytopenia, unspecified; D72.819 Decreased white blood cell count, unspecified; D64.9 Anemia, unspecified; H70.91 Unspecified mastoiditis, right ear; R74.01 Elevation of levels of liver transaminase levels; R74.8 Abnormal levels of other serum enzymes
CPT/HCPCS: 36415; 81599; 85025; 85651

== ENCOUNTER 2024-09-14 07:47 | Inpatient (IN) ==
--- NOTE | 2024-09-14 08:46 | HISTORY & PHYSICAL EXAMINATION ---
Admit History Visit Reason Visit Reason: Other (Induction of labor) Smoking Status: Never smoker Other Maternal History Other Maternal History: HPI: Ara is a 34 yo at 39w0d who is admitted for induction of labor. Ara is feeling well. Reports more regular contractions since last evening around 8pm. No LOF, VB. + FM. She confirms desire for permanent sterilization. monitoring form, copied from record: 33 yo LMP: 12/07/2023 RITA by LMP: 09/12/2024 US: 02/10/2024 Not c/w LMP Final RITA: 09/21/2024 Partner: Ronnie Vee Sex: boy MFM consult done at [facility] with FAS done there. AMA- negative Materniti . 1st trimester: RPR positive. T. Antibody negative at initial screen. Third trimester: Negative antibodies and positive RPR. Hx: Alcoholism, liver Cirrhosis. 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 followed by [facility] GI prior baby with severe IUGR - recommend growth scans at 28 and 32 weeks. done and OK. Pre- Weight: 148 BMI: 24.37 Blood type: O+ Antibody: Negative CBC: PLT 164 HCT 35.8 HGB 12.1 RUB: Immune VZV: Immune HBsAg: Negative HepC: NR RPR/AB-EIA: Reactive HIV: NR PAP: 02/23/24- NILM HPV 56/59/66+ GC/CT: 02/23/24- Negative HSV: denies Genetic testing: [id number] - Negative AFP Negative. Covid: vaccinated Flu: unsure FAS:05/05/24 Placenta: posterior, no previa Cord: 3VC KAYLA: WNL EFW: 335g 45% 50gm OGCT: 175 3HR GTT: F: 82 1hr:141; 2hr; 136 3hr: 107 TDAP: 07/13 Breast Pump: 07/13 RPR- Reactive Titer: 1:16 Antibodies: NR 3rd trimester H/H PLT 162 HCT 31.9 HGB 10.9 GBS: neg Delivery plan: Contraception: desires sterilization. papers signed 08/17. PE: Gen: NAD Chest: non labored respirations Abd: gravid , non tender. EFW 3600g Ext: no LE edema SVE: 2/50/-3, soft, posterior per nurse exam Bedside US: cephalic presentation confirmed by myself monitoring: FHTs: 150s bpm baseline, + accel, - decel, mod variability [place]: 5-7 min Labs: reviewed admission CBC, CMP, T&S A/P: Ara is a 34 yo at 39w0d: - IOL - GBS neg - H/o alcoholism in remission, liver cirrhosis. LFTs wnl. - H/o Trey's disease - H/o Lymes disease - Desires permanent sterilization, [facility] consent signed 08/17 (in [place]) - Plan to start IOL with pitocin. IOL consent reviewed and signed. - Discussed repeat SVE around lunch time with possible AROM with that exam. - Pain management per patient request. She is planning for epidural. Mark Seaman MD HPI Current : Vital Signs Temperature 98.6 F 09/14/24 07:58 Pulse Rate 90 09/14/24 07:58 Respiratory Rate 16 09/14/24 07:58 Blood Pressure 125/79 09/14/24 07:58 Temperature 98.6 F 09/14/24 07:58 Pulse Rate 90 09/14/24 07:58 Respiratory Rate 16 09/14/24 07:58 Blood Pressure 125/79 09/14/24 07:58 NST Procedure NST Procedure: NST Procedure Start Time 14:32 Stop Time 15:00 Meds/Allgy Home Medications Ambulatory Orders Medication Instructions Recorded Confirmed albuterol sulfate 90 mcg/actuation 1 - 2 puff inhalation Q4HR PRN 04/28/24 09/01/24 aerosol inhaler (Ventolin HFA) Shortness Of Air/Wheezing #1 ea ferrous sulfate 325 mg (65 mg 325 mg PO QDAY 09/01/24 09/01/24 iron) tablet vits no.126-ferrous fum tab PO .DAILY 09/01/24 09/01/24 28 mg iron-folic acid 800 mcg tablet (Classic ) metronidazole 500 mg tablet 500 mg PO BID #14 tabs 09/10/24 Allergies Allergies Allergy/AdvReac Type Severity Reaction Status Date / Time Sulfa (Sulfonamide Allergy Unknown Anaphylaxis Verified 04/28/24 12:07 Antibiotics) adhesive tape AdvReac Unknown Rash Verified 04/28/24 12:07 codeine AdvReac Unknown Nausea Verified 04/28/24 12:07 [facility] Medical History Medical History (Updated 09/09/24 @ 15:15 by Corine Stringer, GUERRERO) Abdominal pain, RUQ (06/01/23) Abnormal laboratory test (02/23/24) Abscess of arm, right Acute pancreatitis (06/01/23) Acute upper respiratory infection, unspecified (04/15/24) Alcohol abuse Cat scratch (06/02/18) 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) Encounter for other specified screening (01/28/24) Mastoiditis of right side Otitis media Patient left after triage (07/08/23) Patient left before evaluation by physician (07/08/23) Seizure disorder (04/21/18) Septicemia (09/09/23) Surgical History Surgical History (Updated 09/01/24 @ 09:34 by Corine Stringer RN) History of tonsillectomy Family History Family History (Updated 09/01/24 @ 09:35 by Corine Stringer RN) Father Heart attack Cancer Maternal grandmother Diabetes Social History Social History (Updated 09/01/24 @ 09:37 by Corine Stringer RN) Smoking Status: Never smoker Second hand tobacco smoke exposure: No Do you dip or chew tobacco?: No Do you vape?: No Patient requests smoking cessation consult: No Initiate information on smoking cessation: No Living arrangement: At home Living Condition: With family Level: Independent Do you feel safe in your home environment?: Yes Suffered physical, verbal, emotional, or financial abuse?: No History of Abuse: No ETOH Use: None Frequency: Daily Number of Amount/day: 0 ETOH Use Details: Hx of alcoholism- none since 2022 Are you sexually active?: Yes Control Method: None 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
[2024-09-14] MEDS ORDERED: hydrALAZINE INJ 20 MG/ML VIAL IVP PRN ×3 (08:47→14:53)
[2024-09-14] MEDS ORDERED: OXYTOCIN/SODIUM CHLORIDE 500 ML IV PRN ×2 (08:47→14:53)
[2024-09-14] MEDS ORDERED: miSOPROStoL 200 MCG TABLET BC PRN (08:47)
[2024-09-14] MEDS ORDERED: TRANEXAMIC ACID IN NACL 1,000 MG/100 ML BAG IV PRN (08:47)
[2024-09-14] MEDS ORDERED: lidocaine 1% 20 ML MDV ID PRN (08:47)
[2024-09-14] MEDS ORDERED: OXYTOCIN 10 UNIT/ML VIAL IM PRN (08:47)
[2024-09-14] MEDS ORDERED: NIFEdipine 10 MG CAPSULE PO PRN ×2 (08:47→14:53)
[2024-09-14] MEDS ORDERED: LABETALOL 20 MG/4 ML SYRINGE IVP PRN ×5 (08:47→14:53)
[2024-09-14] MEDS ORDERED: TERBUTALINE 1 MG/ML VIAL SUBQ PRN (08:47)
[2024-09-14] MEDS ORDERED: METHYLERGONOVINE 0.2 MG/ML VIAL IM PRN (08:47)
[2024-09-14] MEDS ORDERED: miSOPROStoL 200 MCG TABLET PR PRN (08:47)
[2024-09-14 09:17] LABS: BASOPHILS % (AUTO) 0.2 %; EOSINOPHILS # (AUTO) 0.1 10^3/uL (0.0-0.7); EOSINOPHILS % (AUTO) 0.4 %; HCT - HEMATOCRIT 35.2 % (37.0-47.0); HGB - HEMOGLOBIN 11.9 g/dL (12.0-16.0); LYMPHOCYTES # (AUTO) 0.9 10^3/uL (1.5-3.5); LYMPHOCYTES % (AUTO) 7.7 %; MEAN CORPUSCULAR HEMOGLOBIN 29.8 pg (27.0-31.0); MEAN CORPUSCULAR HGB CONC 33.8 g/dL (32.0-36.0); MEAN PLATELET VOLUME 11.5 fL (7.9-10.8); MONOCYTES # (AUTO) 0.8 10^3/uL (0.0-1.0); MONOCYTES % (AUTO) 6.4 %; NEUTROPHILS # (AUTO) 10.2 10^3/uL (1.5-6.6); NEUTROPHILS % (AUTO) 84.6 %; PLT - PLATELET COUNT 185 10^3/uL (130-450); RED CELL DISTRIBUTION WIDTH 13.2 % (12.0-15.0)
[2024-09-14] MEDS: LACTATED RINGERS 1,000 ML IV PRN (09:39)
[2024-09-14 10:17] LABS: ALBUMIN 3.6 g/dL (3.2-5.5); ALBUMIN/GLOBULIN RATIO 1.3 (1.0-2.2); BILIRUBIN,TOTAL 0.7 mg/dL (0.2-1.0); CALCIUM 9.3 mg/dL (8.5-10.3); CREATININE 0.5 mg/dL (0.6-1.3); POTASSIUM 3.6 mmol/L (3.5-4.5); TOTAL PROTEIN 6.3 g/dL (6.4-8.9)
[2024-09-14] MEDS: OXYTOCIN/SODIUM CHLORIDE 500 ML IV SCH (10:34)
[2024-09-14] MEDS: fentaNYL 100 MCG/2 ML VIAL IVP PRN (10:53)
--- NOTE | 2024-09-14 11:31 | ANESTHESIA PROCEDURE NOTE ---
Pre-Anesthesia VS, & Labs Diagnosis Surgical Diagnosis:: labor induction Procedure Procedure: epidural Vitals Vital Signs: Temp Pulse Resp BP 37.0 C 90 16 125/79 09/14/24 07:58 09/14/24 07:58 09/14/24 07:58 09/14/24 07:58 NPO NPO: Other Is Patient ?: Yes Lab Results Current Lab Results: Laboratory Tests 09/14/24 08:45: WBC 12.0 H, RBC 4.00 L, Hgb 11.9 L, Hct 35.2 L, MCV 88.0, MCH 29.8, MCHC 33.8, RDW 13.2, Plt Count 185, MPV 11.5 H, Neut # (Auto) 10.2 H, L ymph # (Auto) 0.9 L, [place] # (Auto) 0.8, Eos # (Auto) 0.1, Baso # (Auto) 0.0, Absolute Nucleated RBC 0.00, Nucleated RBC % 0.0, Sodium 134 L, Potassium 3.6, Chloride 105, Carbon Dioxide 22, Anion Gap 7.0, BUN 10, Creatinine 0.5 L, Estimated GFR (MDRD) 140, Glucose 91, Calcium 9.3, Total Bilirubin 0.7, AST 21, ALT 12, Alkaline Phosphatase 152 H, Total Protein 6.3 L, Albumin 3.6, Globulin 2.7, Albumin/Globulin Ratio 1.3, Blood Type O POSITIVE, Antibody Screen NEGATIVE 09/14/24 08:45 09/14/24 08:45 Meds/Allgy Home Medications Ambulatory Orders Medication Instructions Recorded Confirmed albuterol sulfate 90 mcg/actuation 1 - 2 puff inhalation Q4HR PRN 04/28/24 09/01/24 aerosol inhaler (Ventolin HFA) Shortness Of Air/Wheezing #1 ea ferrous sulfate 325 mg (65 mg 325 mg PO QDAY 09/01/24 09/01/24 iron) tablet vits no.126-ferrous fum tab PO .DAILY 09/01/24 09/01/24 28 mg iron-folic acid 800 mcg tablet (Classic ) metronidazole 500 mg tablet 500 mg PO BID #14 tabs 09/10/24 Allergies Allergies Allergy/AdvReac Type Severity Reaction Status Date / Time Sulfa (Sulfonamide Allergy Unknown Anaphylaxis Verified 04/28/24 12:07 Antibiotics) adhesive tape AdvReac Unknown Rash Verified 04/28/24 12:07 codeine AdvReac Unknown Nausea Verified 04/28/24 12:07 [facility] Medical History Medical History (Updated 09/09/24 @ 15:15 by Corine Stringer RN) Otitis media Mastoiditis of right side Alcohol abuse Abscess of arm, right Patient left before evaluation by physician (07/08/23) Patient left after triage (07/08/23) Encounter for other specified screening (01/28/24) Cat scratch (06/02/18) Acute upper respiratory infection, unspecified (04/15/24) Acute pancreatitis (06/01/23) Abnormal laboratory test (02/23/24) Abdominal pain, RUQ (06/01/23) Septicemia (09/09/23) Seizure disorder (04/21/18) 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) Surgical History Surgical History (Updated 09/01/24 @ 09:34 by Corine Stringer RN) History of tonsillectomy Family History Family History (Updated 09/01/24 @ 09:35 by Corine Stringer RN) Father Heart attack Cancer Maternal grandmother Diabetes Social History Social History (Updated 09/01/24 @ 09:37 by Corine Stringer RN) Smoking Status: Never smoker Number of Years Smoked: 10 Second hand tobacco smoke exposure: No Do you dip or chew tobacco?: No Do you vape?: No Patient requests smoking cessation consult: No Initiate information on smoking cessation: No Living arrangement: At home Living Condition: With family Level: Independent Do you feel safe in your home environment?: Yes Suffered physical, verbal, emotional, or financial abuse?: No History of Abuse: No ETOH Use: None Frequency: Daily Number of Amount/day: 0 ETOH Use Details: Hx of alcoholism- none since 2022 Are you sexually active?: Yes Control Method: None 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
[2024-09-14] MEDS: LACTATED RINGERS 500 ML IV ONE (12:31)
[2024-09-14] MEDS ORDERED: LIDOCAINE 2%-EPI 1:100000 20 ML MDV ONE (12:36)
[2024-09-14] MEDS ORDERED: ROPIVACAINE 0.2% 200 MG/100 ML BAG EP ONE (12:36)
[2024-09-14] MEDS ORDERED: ROPIVACAINE 0.2% 200 MG/100 ML BAG EP PRN (13:14)
[2024-09-14] MEDS ORDERED: NALOXONE 0.4 MG/ML VIAL IVP PRN ×2 (13:14→14:53)
[2024-09-14] MEDS ORDERED: NALBUPHINE 10 MG/ML AMP IVP PRN (13:14)
[2024-09-14] MEDS ORDERED: METOCLOPRAMIDE 10 MG/2 ML VIAL IVP PRN (13:14)
[2024-09-14] MEDS ORDERED: ONDANSETRON 4 MG/2 ML VIAL IVP PRN (13:14)
[2024-09-14] MEDS ORDERED: diphenhydrAMINE INJ 50 MG/ML VIAL IVP PRN (13:14)
[2024-09-14] MEDS ORDERED: ePHEDrine 50 MG/ML VIAL IVP PRN (13:14)
[2024-09-14] MEDS: ONDANSETRON 4 MG/2 ML VIAL IVP PRN (13:23)
--- NOTE | 2024-09-14 14:16 | PHARMACY PROGRESS NOTE ---
Best Possible Medication History Admit Date and Time: 09/14/24 0847 Processed by: Pharmacy (Medication reconciliation completed by lead pharmacy technicianVince) Medications reviewed in ED?: No Medication History completed: Yes Patient Interview: Completed Secondary Source(s): Insurance records [facility] Statement: As the person ultimately responsible for medication therapy, providers are able to order a medication from an existing home medication list in [facility] via the "Reconcile Routine" prior to Confirmation of that medication by behavior support specialist. Such practice is discouraged except when the physician, in their clinical judgment, deems that a medical need exists for a medication without regard to previous use.
[2024-09-14] MEDS ORDERED: LABETALOL 5 MG/1 ML 20 ML MDV IVP PRN (14:53)
[2024-09-14] MEDS ORDERED: SIMETHICONE CHEW 80 MG TABLET PO PRN (14:53)
--- NOTE | 2024-09-14 14:55 | DELIVERY NOTE ---
Delivery Note Labor Labor: positive Induced by oxytocin Infant Delivery Method Delivery Method: positive Spontaneous vaginal delivery Presentation Presentation: positive WILLI - left occiput anterior Nuchal Cord Nuchal Cord: positive None Amniotic Fluid Description Amniotic Fluid Description: positive Clear Episiotomy Type Episiotomy Type: positive None Laceration Laceration: positive Periurethral (bilateral, hemostatic, not repaired) Delivery Outcome Delivery Outcome: positive Livebirth [place]: positive Placed in direct skin contact with mother, Stimulated and Warmed sex: positive Male Placenta Placenta: positive Intact Estimated Blood Loss Estimated Blood Loss (in cc): 100 Delivery Comments (Free Text/Narrative) Delivery Comments (Free Text/Narrative): I was called to the bedside for patient complete and ready to start pushing. She pushed with excellent effort. The anterior shoulder delivered easily with maternal effort and gentle downward pressure followed by the remainder of the body. The was placed on the mother's abdomen. After more than 60 sec the cord was clamped times two and cut by Ara's partner. Cord blood collected. Pitocin was started. The placenta was delivered intact. Good uterine tone noted. Bilateral periurethral lacerations noted which were hemostatic and not repaired. Mark Seaman MD
[2024-09-14] MEDS: IBUPROFEN 600 MG TABLET PO PRN (15:27)
[2024-09-14] MEDS: ACETAMINOPHEN 500 MG TABLET PO PRN (17:00)
[2024-09-14] MEDS: oxyCODONE 5 MG TABLET PO PRN (18:38)
[2024-09-14] MEDS: DOCUSATE SODIUM 100 MG CAPSULE PO SCH (21:38)
[2024-09-15] MEDS: SODIUM CHLORIDE FLUSH 0.9% 10 ML SYRINGE IVP SCH (09:09)
--- NOTE | 2024-09-15 09:52 | PROVIDER PROGRESS NOTE ---
Subjective Prog Note Date Prog Note Date: 09/15/24 Prog Note Time: 09:45 Subjective Subjective: Mostly comfortable, some cramping. Reports radiating back pain at site of epidural- anesthesia to evaluate per RN. Minimal lochia. Ambulating. Voiding. Tolerating regular diet. currently, going well. Mood is good. Current Medications Current Medications Current Medications: Current Medications Generic Name Dose Route Start Last Admin Trade Name Freq PRN Reason Stop Dose Admin Acetaminophen 1,000 mg 09/14/24 08:47 09/15/24 09:09 Acetaminophen 500 Mg Tablet PO 1,000 mg Q8H PRN Administration Mild Pain or Fever>38C(100.4F) Acetaminophen 1,000 mg 09/14/24 14:53 Acetaminophen 500 Mg Tablet PO Q8HR PRN Mild Pain or Fever>38C(100.4F) Diphenhydramine HCl 12.5 - 25 mg 09/14/24 13:14 Diphenhydramine Inj 50 Mg/Ml Vial IVP Q6HR PRN ITCHING Docusate Sodium 100 mg 09/14/24 21:00 09/15/24 09:08 Docusate Sodium 100 Mg Capsule PO 100 mg BID ALIDA Administration Ephedrine Sulfate 5 mg 09/14/24 13:14 Ephedrine 50 Mg/Ml Vial IVP Q5M PRN For SBP<100;give until SBP>100 Fentanyl 50 mcg 09/14/24 08:47 09/14/24 10:53 Fentanyl 100 Mcg/2 Ml Vial IVP 50 mcg Q1H PRN Administration Severe Pain (score 7-10) Hydralazine HCl 5 - 10 mg 09/14/24 08:47 Hydralazine Inj 20 Mg/Ml Vial IVP Q20M PRN SBP> or= 160 OR DBP> or= 110 Protocol Hydralazine HCl 10 mg 09/14/24 14:53 Hydralazine Inj 20 Mg/Ml Vial IVP .ONCE PRN SBP> or= 160 OR DBP> or= 110 Protocol Hydralazine HCl 5 - 10 mg 09/14/24 14:53 Hydralazine Inj 20 Mg/Ml Vial IVP Q20M PRN SBP >=160 and/or DBP >=110 Protocol Lactated Ringer's 500 mls @ 999 mls/hr 09/14/24 08:47 09/14/24 15:31 Lr IV Infused PRN PRN Infusion Abdominal Pain Oxytocin/Sodium Chloride 500 mls @ 999 mls/hr 09/14/24 08:47 Pitocin/Sodium Chloride IV PRN PRN POST- HEMORR PREVENTION Protocol 999 MILLIUNIT/MIN Tranexamic Acid 1,000 mg in 100 mls @ 600 mls/hr 09/14/24 08:47 Tranexamic 1,000 Mg/100ml-Nacl IV Q30M PRN EBL >1200mL and within 3hr Oxytocin/Sodium Chloride 500 mls @ 1 mls/hr 09/14/24 11:00 09/14/24 11:41 Pitocin/Sodium Chloride IV 3 milliunit/min TITR ALIDA 3 mls/hr Titration Protocol 1 MILLIUNIT/MIN Ropivacaine 200 mg in 100 mls @ 0 mls/hr 09/14/24 13:14 Naropin 0.2% EP PRN PRN PAIN Protocol Per Protocol Oxytocin/Sodium Chloride 500 mls @ 999 mls/hr 09/14/24 14:53 Pitocin/Sodium Chloride IV PRN PRN POST- HEMORR PREVENTION Protocol 999 MILLIUNIT/MIN Ibuprofen 600 mg 09/14/24 14:53 09/15/24 09:08 Ibuprofen 600 Mg Tablet PO 600 mg Q6HR PRN Administration Moderate Pain (Level 4-6) Labetalol HCl 20 - 80 mg 09/14/24 08:47 Labetalol 20 Mg/4 Ml Syringe IVP Q10M PRN SBP> or= 160 OR DBP> or= 110 Protocol Labetalol HCl 20 mg 09/14/24 08:47 Labetalol 20 Mg/4 Ml Syringe IVP .ONCE PRN SBP> or= 160 OR DBP> or= 110 Protocol Labetalol HCl 20 - 40 mg 09/14/24 08:47 Labetalol 20 Mg/4 Ml Syringe IVP Q10M PRN SBP> or= 160 OR DBP> or= 110 Protocol Labetalol HCl 20 - 80 mg 09/14/24 14:53 Labetalol 5 Mg/1 Ml 20 Ml Mdv IVP Q10M PRN SBP> or= 160 OR DBP> or= 110 Protocol Labetalol HCl 20 - 40 mg 09/14/24 14:53 Labetalol 20 Mg/4 Ml Syringe IVP Q10M PRN SBP> or= 160 OR DBP> or= 110 Protocol Labetalol HCl 20 mg 09/14/24 14:53 Labetalol 20 Mg/4 Ml Syringe IVP .ONCE PRN SBP >=160 and/or DBP >=110 Protocol Lidocaine HCl 20 ml 09/14/24 08:47 Lidocaine 1% 20 Ml Mdv ID 09/17/24 08:47 .ONCE PRN PERINEAL REPAIR Methylergonovine Maleate 0.2 mg 09/14/24 08:47 Methylergonovine 0.2 Mg/Ml Vial IM .ONCE PRN Hemorrhage Metoclopramide HCl 10 mg 09/14/24 13:14 Metoclopramide 10 Mg/2 Ml Vial IVP Q6HR PRN Nausea / Vomiting Misoprostol 600 mcg 09/14/24 08:47 Misoprostol 200 Mcg Tablet BC .ONCE PRN Hemorrhage Misoprostol 800 mcg 09/14/24 08:47 Misoprostol 200 Mcg Tablet CO .ONCE PRN Hemorrhage Nalbuphine HCl 2.5 - 5 mg 09/14/24 13:14 Nalbuphine 10 Mg/Ml Amp IVP Q4H PRN ITCHING Naloxone HCl 0.1 mg 09/14/24 13:14 Naloxone 0.4 Mg/Ml Vial IVP Q2M PRN RR<8 Naloxone HCl 0.4 mg 09/14/24 14:53 Naloxone 0.4 Mg/Ml Vial IVP .ONCE PRN Opioid Overdose Nifedipine 10 - 20 mg 09/14/24 08:47 Nifedipine 10 Mg Capsule PO Q20M PRN SBP> or= 160 OR DBP> or= 110 Protocol Nifedipine 10 - 20 mg 09/14/24 14:53 Nifedipine 10 Mg Capsule PO Q20M PRN SBP >=160 and/or DBP >=110 Protocol Ondansetron HCl 4 mg 09/14/24 13:14 Ondansetron 4 Mg/2 Ml Vial IVP Q6HR PRN Nausea / Vomiting Oxycodone HCl 5 mg 09/14/24 14:53 09/15/24 08:07 Oxycodone 5 Mg Tablet PO 5 mg Q4HR PRN Administration Severe Pain 6-10 Oxytocin 10 unit 09/14/24 08:47 Oxytocin 10 Unit/Ml Vial IM .ONCE PRN Step One if no IV access. Simethicone 80 mg 09/14/24 14:53 Simethicone Chew 80 Mg Tablet PO TID PRN Gas Sodium Chloride 10 ml 09/14/24 08:47 Sodium Chloride Flush 0.9% 10 Ml Syringe IVP PRN PRN NEEDED PER PROVIDER ORDERS Sodium Chloride 10 ml 09/14/24 09:00 09/15/24 09:09 Sodium Chloride Flush 0.9% 10 Ml Syringe IVP 10 ml Q8H ALIDA Administration Terbutaline Sulfate 0.25 mg 09/14/24 08:47 Terbutaline 1 Mg/Ml Vial SUBQ .ONCE PRN Tachystole Objective Vital Signs/Intake & Output Reviewed Vital Signs: Yes Vital Signs: Vital Signs x48h Temp Pulse Resp BP Pulse Ox 09/15/24 05:00 36.7 C 66 16 130/75 97 Intake & Output: Intake & Output 09/13/24 09/14/24 09/15/24 09/16/24 05:59 05:59 05:59 05:59 Intake Total 1772 / 1772 Output Total 825 / 825 Balance 947 / 947 Objective General Appearance: positive No acute distress Eyes Bilateral: positive EOMI Respiratory: positive No respiratory distress Abdomen: positive Non-tender Skin: positive Color nml Extremities: positive Non-tender Neurologic/Psychiatric: positive Oriented x3 Lab Results 09/14/24 08:45 09/14/24 08:45 Other Labs: Lab Results x24hrs 09/14/24 Range/Units 08:45 Sodium 134 L (135-145) mmol/L Potassium 3.6 (3.5-4.5) mmol/L Chloride 105 (101-111) mmol/L Carbon Dioxide 22 (21-32) mmol/L Anion Gap 7.0 (6-13) BUN 10 (6-20) mg/dL Creatinine 0.5 L (0.6-1.3) mg/dL Estimated GFR (MDRD) 140 (>89) Glucose 91 (74-104) mg/dL Calcium 9.3 (8.5-10.3) mg/dL Total Bilirubin 0.7 (0.2-1.0) mg/dL AST 21 (10-42) IU/L ALT 12 (10-60) IU/L Alkaline Phosphatase 152 H (42-121) IU/L Total Protein 6.3 L (6.4-8.9) g/dL Albumin 3.6 (3.2-5.5) g/dL Globulin 2.7 (2.1-4.2) g/dL Albumin/Globulin Ratio 1.3 (1.0-2.2) Blood Type O POSITIVE Antibody Screen NEGATIVE Assessment/Plan Problem List (1) care following vaginal delivery: Impression: 34yo s/p 09/14 PPD#1 - Continue care, doing well - Scheduled for PPBTL tomorrow 0730, NPO after midnight
[2024-09-16] MEDS: ACETAMINOPHEN 500 MG TABLET PO PRN (01:00)
--- NOTE | 2024-09-16 07:18 | ANESTHESIA PROCEDURE NOTE ---
Pre-Anesthesia VS, & Labs Diagnosis Surgical Diagnosis:: Desires sterilization Procedure Procedure: Post salpingectomy Vitals Vital Signs: Temp Pulse Resp BP Pulse Ox 36.5 C 63 18 122/59 L 98 09/16/24 05:00 09/16/24 05:00 09/16/24 05:00 09/16/24 05:00 09/16/24 05:00 NPO NPO: >8 hours Is Patient ?: No Lab Results Current Lab Results: Laboratory Tests 09/14/24 08:45: WBC 12.0 H, RBC 4.00 L, Hgb 11.9 L, Hct 35.2 L, MCV 88.0, MCH 29.8, MCHC 33.8, RDW 13.2, Plt Count 185, MPV 11.5 H, Neut # (Auto) 10.2 H, L ymph # (Auto) 0.9 L, [place] # (Auto) 0.8, Eos # (Auto) 0.1, Baso # (Auto) 0.0, Absolute Nucleated RBC 0.00, Nucleated RBC % 0.0, Sodium 134 L, Potassium 3.6, Chloride 105, Carbon Dioxide 22, Anion Gap 7.0, BUN 10, Creatinine 0.5 L, Estimated GFR (MDRD) 140, Glucose 91, Calcium 9.3, Total Bilirubin 0.7, AST 21, ALT 12, Alkaline Phosphatase 152 H, Total Protein 6.3 L, Albumin 3.6, Globulin 2.7, Albumin/Globulin Ratio 1.3, Blood Type O POSITIVE, Antibody Screen NEGATIVE Lab results reviewed: Yes 09/14/24 08:45 09/14/24 08:45 Meds/Allgy Home Medications Ambulatory Orders Medication Instructions Recorded Confirmed ferrous sulfate 325 mg (65 mg 325 mg PO QDAY 09/01/24 09/14/24 iron) tablet vits no.126-ferrous fum 1 tab PO DAILY 09/01/24 09/14/24 28 mg iron-folic acid 800 mcg tablet (Classic ) metronidazole 500 mg tablet 500 mg PO BID #14 tabs 09/10/24 09/14/24 Allergies Allergies Allergy/AdvReac Type Severity Reaction Status Date / Time Sulfa (Sulfonamide Allergy Unknown Anaphylaxis Verified 04/28/24 12:07 Antibiotics) adhesive tape AdvReac Unknown Rash Verified 04/28/24 12:07 codeine AdvReac Unknown Nausea Verified 04/28/24 12:07 [facility] Medical History Medical History (Updated 09/16/24 @ 07:17 by Liss Mac CRNA) care following vaginal delivery History of cirrhosis of liver History of alcoholism Encounter for other specified screening (01/28/24) Surgical History Surgical History (Updated 09/01/24 @ 09:34 by Corine Stringer, RN) History of tonsillectomy Family History Family History (Updated 09/01/24 @ 09:35 by Corine Stringer, RN) Father Heart attack Cancer Maternal grandmother Diabetes Social History Social History (Updated 09/01/24 @ 09:37 by Corine Stringer, RN) Smoking Status: Never smoker Number of Years Smoked: 10 Second hand tobacco smoke exposure: No Do you dip or chew tobacco?: No Do you vape?: No Patient requests smoking cessation consult: No Initiate information on smoking cessation: No Living arrangement: At home Living Condition: With family Level: Independent Do you feel safe in your home environment?: Yes Suffered physical, verbal, emotional, or financial abuse?: No History of Abuse: No ETOH Use: None Frequency: Daily Number of Amount/day: 0 ETOH Use Details: Hx of alcoholism- none since 2022 Are you sexually active?: Yes Control Method: None 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
[2024-09-16] MEDS ORDERED: BUPIVACAINE 0.25% PF 30 ML VIAL ONE (07:19)
[2024-09-16] MEDS ORDERED: ceFAZolin (2G) 2 GM in SODIUM CHLORIDE 0.9% MINIBAG 100 ML IV ONE (07:26)
--- NOTE | 2024-09-16 07:26 | PROVIDER PROGRESS NOTE ---
Subjective Subjective Subjective: Patient reports she is doing well. Lochia appropriate. Denies heavy bleeding. Ambulating. Pelvic and abdominal pain well-controlled. Tolerating oral intake. Diet: Regular. Voiding without difficulty. Passing flatus. Denies BM. Patient is bonding with baby in room Breast feeding going well. Denies feeling lightheaded, dizzy or excessively fatigued. Control: Plan for to ligation today. Current Medications Current Medications Current Medications: Current Medications Generic Name Dose Route Start Last Admin Trade Name Freq PRN Reason Stop Dose Admin Acetaminophen 1,000 mg 09/14/24 08:47 09/15/24 17:31 Acetaminophen 500 Mg Tablet PO 1,000 mg Q8H PRN Administration Mild Pain or Fever>38C(100.4F) Acetaminophen 1,000 mg 09/14/24 14:53 09/16/24 01:00 Acetaminophen 500 Mg Tablet PO 1,000 mg Q8HR PRN Administration Mild Pain or Fever>38C(100.4F) Docusate Sodium 100 mg 09/14/24 21:00 09/15/24 21:42 Docusate Sodium 100 Mg Capsule PO 100 mg BID ALIDA Administration Fentanyl 50 mcg 09/14/24 08:47 09/14/24 10:53 Fentanyl 100 Mcg/2 Ml Vial IVP 50 mcg Q1H PRN Administration Severe Pain (score 7-10) Hydralazine HCl 5 - 10 mg 09/14/24 08:47 Hydralazine Inj 20 Mg/Ml Vial IVP Q20M PRN SBP> or= 160 OR DBP> or= 110 Protocol Hydralazine HCl 10 mg 09/14/24 14:53 Hydralazine Inj 20 Mg/Ml Vial IVP .ONCE PRN SBP> or= 160 OR DBP> or= 110 Protocol Hydralazine HCl 5 - 10 mg 09/14/24 14:53 Hydralazine Inj 20 Mg/Ml Vial IVP Q20M PRN SBP >=160 and/or DBP >=110 Protocol Lactated Ringer's 500 mls @ 999 mls/hr 09/14/24 08:47 09/14/24 15:31 Lr IV Infused PRN PRN Infusion Abdominal Pain Oxytocin/Sodium Chloride 500 mls @ 999 mls/hr 09/14/24 08:47 Pitocin/Sodium Chloride IV PRN PRN POST- HEMORR PREVENTION Protocol 999 MILLIUNIT/MIN Tranexamic Acid 1,000 mg in 100 mls @ 600 mls/hr 09/14/24 08:47 Tranexamic 1,000 Mg/100ml-Nacl IV Q30M PRN EBL >1200mL and within 3hr Oxytocin/Sodium Chloride 500 mls @ 1 mls/hr 09/14/24 11:00 09/14/24 11:41 Pitocin/Sodium Chloride IV 3 milliunit/min TITR ALIDA 3 mls/hr Titration Protocol 1 MILLIUNIT/MIN Oxytocin/Sodium Chloride 500 mls @ 999 mls/hr 09/14/24 14:53 Pitocin/Sodium Chloride IV PRN PRN POST- HEMORR PREVENTION Protocol 999 MILLIUNIT/MIN Ibuprofen 600 mg 09/14/24 14:53 09/16/24 05:10 Ibuprofen 600 Mg Tablet PO 600 mg Q6HR PRN Administration Moderate Pain (Level 4-6) Labetalol HCl 20 - 80 mg 09/14/24 08:47 Labetalol 20 Mg/4 Ml Syringe IVP Q10M PRN SBP> or= 160 OR DBP> or= 110 Protocol Labetalol HCl 20 mg 09/14/24 08:47 Labetalol 20 Mg/4 Ml Syringe IVP .ONCE PRN SBP> or= 160 OR DBP> or= 110 Protocol Labetalol HCl 20 - 40 mg 09/14/24 08:47 Labetalol 20 Mg/4 Ml Syringe IVP Q10M PRN SBP> or= 160 OR DBP> or= 110 Protocol Labetalol HCl 20 - 80 mg 09/14/24 14:53 Labetalol 5 Mg/1 Ml 20 Ml Mdv IVP Q10M PRN SBP> or= 160 OR DBP> or= 110 Protocol Labetalol HCl 20 - 40 mg 09/14/24 14:53 Labetalol 20 Mg/4 Ml Syringe IVP Q10M PRN SBP> or= 160 OR DBP> or= 110 Protocol Labetalol HCl 20 mg 09/14/24 14:53 Labetalol 20 Mg/4 Ml Syringe IVP .ONCE PRN SBP >=160 and/or DBP >=110 Protocol Lidocaine HCl 20 ml 09/14/24 08:47 Lidocaine 1% 20 Ml Mdv ID 09/17/24 08:47 .ONCE PRN PERINEAL REPAIR Methylergonovine Maleate 0.2 mg 09/14/24 08:47 Methylergonovine 0.2 Mg/Ml Vial IM .ONCE PRN Hemorrhage Misoprostol 600 mcg 09/14/24 08:47 Misoprostol 200 Mcg Tablet BC .ONCE PRN Hemorrhage Misoprostol 800 mcg 09/14/24 08:47 Misoprostol 200 Mcg Tablet DE .ONCE PRN Hemorrhage Naloxone HCl 0.4 mg 09/14/24 14:53 Naloxone 0.4 Mg/Ml Vial IVP .ONCE PRN Opioid Overdose Nifedipine 10 - 20 mg 09/14/24 08:47 Nifedipine 10 Mg Capsule PO Q20M PRN SBP> or= 160 OR DBP> or= 110 Protocol Nifedipine 10 - 20 mg 09/14/24 14:53 Nifedipine 10 Mg Capsule PO Q20M PRN SBP >=160 and/or DBP >=110 Protocol Oxycodone HCl 5 mg 09/14/24 14:53 09/15/24 08:07 Oxycodone 5 Mg Tablet PO 5 mg Q4HR PRN Administration Severe Pain 6-10 Oxytocin 10 unit 09/14/24 08:47 Oxytocin 10 Unit/Ml Vial IM .ONCE PRN Step One if no IV access. Simethicone 80 mg 09/14/24 14:53 Simethicone Chew 80 Mg Tablet PO TID PRN Gas Sodium Chloride 10 ml 09/14/24 08:47 Sodium Chloride Flush 0.9% 10 Ml Syringe IVP PRN PRN NEEDED PER PROVIDER ORDERS Sodium Chloride 10 ml 09/14/24 09:00 09/15/24 09:09 Sodium Chloride Flush 0.9% 10 Ml Syringe IVP 10 ml Q8H ALIDA Administration Terbutaline Sulfate 0.25 mg 09/14/24 08:47 Terbutaline 1 Mg/Ml Vial SUBQ .ONCE PRN Tachystole Objective Vital Signs/Intake & Output Vital Signs: Vital Signs x48h Temp Pulse Resp BP Pulse Ox 09/16/24 05:00 36.5 C 63 18 122/59 L 98 Intake & Output: Intake & Output 09/14/24 09/15/24 09/16/24 09/17/24 05:59 05:59 05:59 05:59 Intake Total 1772 / 1772 Output Total 825 / 825 Balance 947 / 947 Objective Comments/Other: General: Alert, oriented, no apparent distress. Cardiovascular: Regular rate. Regular rhythm. Lungs: No increased work of breathing. Abdomen: Uterus firm. Below umbilicus. No guarding or rebound. Extremities: No pain on palpation. No cords palpated. Distal pulses intact. Lab Results 09/14/24 08:45 09/14/24 08:45 Assessment/Plan Problem List (1) Encounter for sterilization: Impression: She desires a tubal ligation. We discussed the risks, alternatives, benefits to this. We discussed long-acting control such as IUDs and implants. We had discussion about partner vasectomy and the pros and cons to this including a smaller surgery, and easier recovery. We discussed the general risk of surgery including infection, bleeding, damage to other organs, needing a larger incision. Specific to tubal ligation, we discussed the risk of regret, and discussed that regret is greater in those under 30, without children, and not in stable relationships. Patient says she is confident in her decision to not have any more children. We also discussed the risk of failure, and that less than 1/100 tubal ligation fail, but if it did, she would be at increased risk of ectopic . Patient desires to proceed with bilateral tubal ligation. (2) care and examination of lactating mother: Impression: Routine care. Anticipate discharge later today.
[2024-09-16] MEDS ORDERED: MIDAZOLAM 2 MG/2 ML VIAL ONE (07:35)
[2024-09-16] MEDS ORDERED: PROPOFOL 200 MG/20 ML VIAL IVP ONE (08:06)
[2024-09-16] MEDS ORDERED: ceFAZolin 1 GM VIAL ONE (08:07)
[2024-09-16] MEDS ORDERED: MORPHINE 2 MG/ML CARPUJECT IVP PRN (08:08)
[2024-09-16] MEDS ORDERED: NALOXONE 0.4 MG/ML VIAL IVP PRN (08:08)
[2024-09-16] MEDS ORDERED: ONDANSETRON 4 MG/2 ML VIAL IVP PRN (08:08)
[2024-09-16] MEDS ORDERED: fentaNYL 100 MCG/2 ML VIAL IVP PRN (08:08)
[2024-09-16] MEDS ORDERED: ATROPINE ABBOJECT 1 MG/10 ML SYRINGE IVP PRN (08:08)
[2024-09-16] MEDS ORDERED: fentaNYL 100 MCG/2 ML VIAL ONE (08:19)
[2024-09-16] MEDS ORDERED: KETAMINE 500 MG/10 ML VIAL ONE (08:26)
[2024-09-16] MEDS ORDERED: LACTATED RINGERS 1,000 ML IV SCH (09:00)
[2024-09-16] MEDS ORDERED: HYDROmorphone 0.5 MG/0.5 ML SYRINGE ONE (09:00)
[2024-09-16] MEDS: HYDROmorphone 0.5 MG/0.5 ML SYRINGE IVP PRN (09:01)
[2024-09-16] MEDS ORDERED: oxyCODONE 5 MG TABLET PO PRN (09:24)
[2024-09-16] MEDS ORDERED: ACETAMINOPHEN 500 MG TABLET PO ONE (09:28)
--- NOTE | 2024-09-16 09:33 | OPERATIVE REPORT ---
Operative Report General Admit Date: 09/14/24 Procedure Data: Operation Date: 09/16/24 07:30 Proposed Procedures p Bilateral Tubal Ligation, POST (Bilateral) - Jose M Morgan MD Actual Procedures p Bilateral Tubal Ligation, MINI LAPAROTOMY POST (Bilateral) - Jose M Morgan MD Pre-Op Diagnosis: DESIRES STERILITY Anesthesia Type Spinal Case Staff Anesthesia Provider: Liss Mac Times Into Recovery: 09/16/24 08:53 Procedure Start: 09/16/24 08:13 Procedure End: 09/16/24 08:45 Time out: 09/16/24 08:12 Tourniquet Tourniquet #: Tourniquet Site Padding: Pressure: Applied by: Time up #1: Time Down #1: Time Up #2: Time Down #2: Pre-Op Diagnosis: Desires sterility Post Op Diagnosis: Status post bilateral salpingectomy Procedure Note Intake, IV Amount (ml): 400 Estimated Blood Loss (ml): 10 Pathology: Bilateral fallopian tubes Findings: Normal-appearing, uterus, normal-appearing fallopian tubes and ovaries. Complications: None Other Other Information/Narrative: Tubal Prior to surgery, we discussed the risks, alternatives, benefits to tubal ligation. We discussed long-acting control such as IUDs and implants. We had discussion about partner vasectomy and the pros and cons to this including a smaller surgery, and easier recovery. We discussed the general risk of surgery including infection, bleeding, damage to other organs, needing a larger incision. Specific to tubal ligation, we discussed the risk of regret, and discussed that regret is greater in those under 30, without children, and not in stable relationships. Patient says she is confident in her decision to not have any more children. We also discussed the risk of failure, and that less than 1/100 tubal ligation fail, but if it did, she would be at increased risk of ectopic . Patient desires to proceed with bilateral tubal ligation. Patient was taken to the OR where spinal anesthesia was obtained without difficulty. The patient was placed in a dorsal supine position. Time out was taken. Abdomen was prepped and draped in usual sterile fashion. 2 g of cefazolin was administered. 2 Allis clamps were placed lateral umbilical folds, and lateral traction was applied to facilitate making an infraumbilical skin incision with scalpel. Incision was carried down to the fascia which was incised with Pandya scissors. Peritoneum was identified and was noted to be free of any adhesions was entered bluntly. Patient's left fallopian tube was then identified and brought to the incision and grasped with a Bacilio clamp. The tube was then followed up to the fimbria. The LigaSure device was then used to separate the fimbria from the ovary by the mesosalpinx and this was sequentially coagulated and cut going up the tube to the level of the cornua where the tube was then coagulated and transected. Good hemostasis was noted, and the tube was returned the abdomen. The right fallopian tube was then ligated and excised in similar fashion. Tube ostia were visualized. The peritoneum and fascia were then closed in single layer using a 0 Vicryl. The umbilical stalk was then reattached to the underlying tissue with a 2-0 Vicryl. Skin was closed with a 4-0 Vicryl in a subcuticular fashion. The patient tolerated procedure well. Sponge, lap, and needle counts were correct 2. The patient was taken to recovery room in stable condition. I appreciate the assistance of JASEN Mar during this procedure, and the assistance in retraction, visualization, dissection, and overall assistance during the case were instrumental to the patient's wellbeing.
--- NOTE | 2024-09-16 10:18 | ANESTHESIA POST OP EVALUATION ---
Anesthesia Post Eval Post Anesthesia Eval Vitals: Last Vital Signs Temp 36.5 C 09/16/24 09:40 Pulse 61 09/16/24 09:40 Resp 14 09/16/24 09:40 BP 130/76 09/16/24 09:40 Pulse Ox 94 09/16/24 09:40 CV Function Including HR & BP: Stable Pain Control: Satisfactory Nausea & Vomiting: Negative Mental Status: Baseline Respiratory Status: Airway Patent Hydration Status: Satisfactory Anesthesia Complications: None
[2024-09-16] MEDS: SODIUM CHLORIDE FLUSH 0.9% 10 ML SYRINGE IVP PRN (13:28)
[2024-09-16 20:02] VITALS: O2SAT 98
--- NOTE | 2024-09-16 20:24 | PROVIDER PROGRESS NOTE ---
Current Medications Current Medications Current Medications: Current Medications Generic Name Dose Route Start Last Admin Trade Name Freq PRN Reason Stop Dose Admin Acetaminophen 1,000 mg 09/14/24 08:47 09/16/24 17:34 Acetaminophen 500 Mg Tablet PO 1,000 mg Q8H PRN Administration Mild Pain or Fever>38C(100.4F) Acetaminophen 1,000 mg 09/14/24 14:53 09/16/24 01:00 Acetaminophen 500 Mg Tablet PO 1,000 mg Q8HR PRN Administration Mild Pain or Fever>38C(100.4F) Docusate Sodium 100 mg 09/14/24 21:00 09/16/24 19:48 Docusate Sodium 100 Mg Capsule PO 100 mg BID ALIDA Administration Fentanyl 50 mcg 09/14/24 08:47 09/16/24 15:06 Fentanyl 100 Mcg/2 Ml Vial IVP 50 mcg Q1H PRN Administration Severe Pain (score 7-10) Hydralazine HCl 5 - 10 mg 09/14/24 08:47 Hydralazine Inj 20 Mg/Ml Vial IVP Q20M PRN SBP> or= 160 OR DBP> or= 110 Protocol Hydralazine HCl 10 mg 09/14/24 14:53 Hydralazine Inj 20 Mg/Ml Vial IVP .ONCE PRN SBP> or= 160 OR DBP> or= 110 Protocol Hydralazine HCl 5 - 10 mg 09/14/24 14:53 Hydralazine Inj 20 Mg/Ml Vial IVP Q20M PRN SBP >=160 and/or DBP >=110 Protocol Lactated Ringer's 500 mls @ 999 mls/hr 09/14/24 08:47 09/14/24 15:31 Lr IV Infused PRN PRN Infusion Abdominal Pain Oxytocin/Sodium Chloride 500 mls @ 999 mls/hr 09/14/24 08:47 Pitocin/Sodium Chloride IV PRN PRN POST- HEMORR PREVENTION Protocol 999 MILLIUNIT/MIN Tranexamic Acid 1,000 mg in 100 mls @ 600 mls/hr 09/14/24 08:47 Tranexamic 1,000 Mg/100ml-Nacl IV Q30M PRN EBL >1200mL and within 3hr Oxytocin/Sodium Chloride 500 mls @ 1 mls/hr 09/14/24 11:00 09/14/24 11:41 Pitocin/Sodium Chloride IV 3 milliunit/min TITR ALIDA 3 mls/hr Titration Protocol 1 MILLIUNIT/MIN Oxytocin/Sodium Chloride 500 mls @ 999 mls/hr 09/14/24 14:53 Pitocin/Sodium Chloride IV PRN PRN POST- HEMORR PREVENTION Protocol 999 MILLIUNIT/MIN Ibuprofen 600 mg 09/14/24 14:53 09/16/24 15:12 Ibuprofen 600 Mg Tablet PO 600 mg Q6HR PRN Administration Moderate Pain (Level 4-6) Labetalol HCl 20 - 80 mg 09/14/24 08:47 Labetalol 20 Mg/4 Ml Syringe IVP Q10M PRN SBP> or= 160 OR DBP> or= 110 Protocol Labetalol HCl 20 mg 09/14/24 08:47 Labetalol 20 Mg/4 Ml Syringe IVP .ONCE PRN SBP> or= 160 OR DBP> or= 110 Protocol Labetalol HCl 20 - 40 mg 09/14/24 08:47 Labetalol 20 Mg/4 Ml Syringe IVP Q10M PRN SBP> or= 160 OR DBP> or= 110 Protocol Labetalol HCl 20 - 80 mg 09/14/24 14:53 Labetalol 5 Mg/1 Ml 20 Ml Mdv IVP Q10M PRN SBP> or= 160 OR DBP> or= 110 Protocol Labetalol HCl 20 - 40 mg 09/14/24 14:53 Labetalol 20 Mg/4 Ml Syringe IVP Q10M PRN SBP> or= 160 OR DBP> or= 110 Protocol Labetalol HCl 20 mg 09/14/24 14:53 Labetalol 20 Mg/4 Ml Syringe IVP .ONCE PRN SBP >=160 and/or DBP >=110 Protocol Lidocaine HCl 20 ml 09/14/24 08:47 Lidocaine 1% 20 Ml Mdv ID 09/17/24 08:47 .ONCE PRN PERINEAL REPAIR Methylergonovine Maleate 0.2 mg 09/14/24 08:47 Methylergonovine 0.2 Mg/Ml Vial IM .ONCE PRN Hemorrhage Misoprostol 600 mcg 09/14/24 08:47 Misoprostol 200 Mcg Tablet BC .ONCE PRN Hemorrhage Misoprostol 800 mcg 09/14/24 08:47 Misoprostol 200 Mcg Tablet SD .ONCE PRN Hemorrhage Naloxone HCl 0.4 mg 09/14/24 14:53 Naloxone 0.4 Mg/Ml Vial IVP .ONCE PRN Opioid Overdose Nifedipine 10 - 20 mg 09/14/24 08:47 Nifedipine 10 Mg Capsule PO Q20M PRN SBP> or= 160 OR DBP> or= 110 Protocol Nifedipine 10 - 20 mg 09/14/24 14:53 Nifedipine 10 Mg Capsule PO Q20M PRN SBP >=160 and/or DBP >=110 Protocol Oxycodone HCl 5 mg 09/14/24 14:53 09/16/24 19:47 Oxycodone 5 Mg Tablet PO 5 mg Q4HR PRN Administration Severe Pain 6-10 Oxycodone HCl 5 mg 09/16/24 09:24 Oxycodone 5 Mg Tablet PO Q4HR PRN Moderate Pain (Level 4-6) Oxytocin 10 unit 09/14/24 08:47 Oxytocin 10 Unit/Ml Vial IM .ONCE PRN Step One if no IV access. Simethicone 80 mg 09/14/24 14:53 Simethicone Chew 80 Mg Tablet PO TID PRN Gas Sodium Chloride 10 ml 09/14/24 08:47 09/16/24 15:08 Sodium Chloride Flush 0.9% 10 Ml Syringe IVP 10 ml PRN PRN Administration NEEDED PER PROVIDER ORDERS Sodium Chloride 10 ml 09/14/24 09:00 09/15/24 09:09 Sodium Chloride Flush 0.9% 10 Ml Syringe IVP 10 ml Q8H ALIDA Administration Terbutaline Sulfate 0.25 mg 09/14/24 08:47 Terbutaline 1 Mg/Ml Vial SUBQ .ONCE PRN Tachystole Objective Vital Signs/Intake & Output Vital Signs: Vital Signs x48h Temp Pulse Resp BP Pulse Ox 09/16/24 20:01 36.9 C 68 18 138/77 H 98 09/16/24 17:39 36.5 C 71 16 141/79 H 09/16/24 14:00 36.9 C 81 16 132/80 H Intake & Output: Intake & Output 09/14/24 09/15/24 09/16/24 09/17/24 05:59 05:59 05:59 05:59 Intake Total 1772 / 1772 700 / 700 Output Total 825 / 825 800 / 800 Balance 947 / 947 -100 / -100 Lab Results 09/14/24 08:45 09/14/24 08:45 Assessment/Plan Problem List (1) Encounter for sterilization: Impression: Pain was more difficult than anticipated and patient will benefit from another night in the hospital. Did not anticipate as much discomfort. Doing better this evening, but required IV pain medications for longer than anticipated. Will observe overnight for pain control. Will discharge tomorrow. (2) care and examination of lactating mother:
--- NOTE | 2024-09-17 10:53 | Discharge Summary ---
Discharge Summary Admit Date: 09/14/24 Discharge Date: 09/17/24 Discharging Provider: Jose M Morgan MD Code Status: Attempt Resuscitation DIAGNOSES Admission Diagnoses: Induction of labor 39 weeks gestation Desires sterility Discharge Diagnoses with Status of Each Condition: Status post spontaneous vaginal delivery Delivery of live vences Status post tubal ligation HPI History of Present Illness: Subjective Patient reports she is doing well. Lochia appropriate. Denies heavy bleeding. Ambulating. Pelvic and abdominal pain well-controlled. Tolerating oral intake. Diet: Regular. Voiding without difficulty. Passing flatus. Denies BM. Patient is bonding with baby in room Breast feeding going well. Denies feeling lightheaded, dizzy or excessively fatigued. Control: Status post tubal ligation Objective General: Alert, oriented, no apparent distress. Cardiovascular: Regular rate. Regular rhythm. Lungs: No increased work of breathing. Abdomen: Uterus firm. Below umbilicus. No guarding or rebound. Extremities: No pain on palpation. No cords palpated. Distal pulses intact. Incision: Bandage in place. HOSPITAL COURSE Hospital Course: Patient admitted to the hospital at 39 weeks gestation for induction of labor and planned tubal ligation. Delivery was quick and uncomplicated with healthy weighing 3371 g. course was followed with a tubal ligation via mini laparotomy. This was uncomplicated, however she had some trouble with postoperative pain and was kept overnight. Postoperative day 1, she was doing very well and desired discharge home. ALLERGIES Allergies Allergy/AdvReac Type Severity Reaction Status Date / Time Sulfa (Sulfonamide Allergy Unknown Anaphylaxis Verified 04/28/24 12:07 Antibiotics) adhesive tape AdvReac Unknown Rash Verified 04/28/24 12:07 codeine AdvReac Unknown Nausea Verified 04/28/24 12:07 MEDICATIONS Ambulatory Orders Medication Instructions Recorded Confirmed ferrous sulfate 325 mg (65 mg 325 mg PO QDAY 09/01/24 09/14/24 iron) tablet vits no.126-ferrous fum 1 tab PO DAILY 09/01/24 09/14/24 28 mg iron-folic acid 800 mcg tablet (Classic ) acetaminophen 500 mg tablet 1,000 mg (2 x 500 mg) PO Q8H PRN 09/17/24 (Acetaminophen Extra Strength) Pain #60 tabs docusate sodium 100 mg capsule 100 - 200 mg (1 - 2 x 100 mg) PO 09/17/24 BID PRN Constipation #60 caps ibuprofen 600 mg tablet 600 mg PO Q6H PRN Pain #30 tabs 09/17/24 oxycodone 5 mg tablet 5 mg PO Q4H PRN Severe Pain #10 09/17/24 tabs LABS 09/14/24 08:45 09/14/24 08:45 FOLLOW UP Follow Up: With Jose M Morgan MD at [facility] TIME SPENT Time Spent in Discharge (Minutes): 20 Discharge Plan Discharge Patient Disposition: Home, Self Care Condition: Good Prescriptions: New oxycodone 5 mg tablet 5 mg PO Q4H PRN (Reason: Severe Pain) Qty: 10 0RF acetaminophen [Acetaminophen Extra Strength] 500 mg tablet 1,000 mg PO Q8H PRN (Reason: Pain) Qty: 60 1RF docusate sodium 100 mg capsule 100 - 200 mg PO BID PRN (Reason: Constipation) Qty: 60 1RF ibuprofen 600 mg tablet 600 mg PO Q6H PRN (Reason: Pain) Qty: 30 0RF Continued ferrous sulfate 325 mg (65 mg iron) tablet 325 mg PO QDAY Classic 28 mg iron- 800 mcg tablet 1 tab PO DAILY Discontinued metronidazole 500 mg tablet 500 mg PO BID Qty: 14 0RF Activity Restrictions: Additional Comments Diet: Regular Print Language: Faroese Patient Instructions: Surgery Anesthesia After, Vaginal After, Depression Follow-up Care: Jose M Morgan MD [Provider Admit Priv/Credential] -
--- NOTE | 2024-09-17 11:07 | Discharge Summary ---
Discharge Summary ALLERGIES Allergies Allergy/AdvReac Type Severity Reaction Status Date / Time Sulfa (Sulfonamide Allergy Unknown Anaphylaxis Verified 04/28/24 12:07 Antibiotics) adhesive tape AdvReac Unknown Rash Verified 04/28/24 12:07 codeine AdvReac Unknown Nausea Verified 04/28/24 12:07 MEDICATIONS Ambulatory Orders Medication Instructions Recorded Confirmed ferrous sulfate 325 mg (65 mg 325 mg PO QDAY 09/01/24 09/14/24 iron) tablet vits no.126-ferrous fum 1 tab PO DAILY 09/01/24 09/14/24 28 mg iron-folic acid 800 mcg tablet (Classic ) acetaminophen 500 mg tablet 1,000 mg (2 x 500 mg) PO Q8H PRN 09/17/24 (Acetaminophen Extra Strength) Pain #60 tabs acetaminophen 500 mg tablet 1,000 mg (2 x 500 mg) PO Q8H PRN 09/17/24 (Acetaminophen Extra Strength) Pain #60 tabs docusate sodium 100 mg capsule 100 - 200 mg (1 - 2 x 100 mg) PO 09/17/24 BID PRN Constipation #60 caps docusate sodium 100 mg capsule 100 - 200 mg (1 - 2 x 100 mg) PO 09/17/24 BID PRN Constipation #60 caps ibuprofen 600 mg tablet 600 mg PO Q6H PRN Pain #30 tabs 09/17/24 ibuprofen 600 mg tablet 600 mg PO Q6H PRN Pain #30 tabs 09/17/24 oxycodone 5 mg tablet 5 mg PO Q4H PRN Severe Pain #10 09/17/24 tabs oxycodone 5 mg tablet 5 mg PO Q4H PRN Severe Pain #10 09/17/24 tabs LABS 09/14/24 08:45 09/14/24 08:45 Discharge Plan Discharge Patient Disposition: 01 Home, Self Care Condition: Good Prescriptions: New acetaminophen [Acetaminophen Extra Strength] 500 mg tablet 1,000 mg PO Q8H PRN (Reason: Pain) Qty: 60 1RF docusate sodium 100 mg capsule 100 - 200 mg PO BID PRN (Reason: Constipation) Qty: 60 1RF ibuprofen 600 mg tablet 600 mg PO Q6H PRN (Reason: Pain) Qty: 30 0RF oxycodone 5 mg tablet 5 mg PO Q4H PRN (Reason: Severe Pain) Qty: 10 0RF acetaminophen [Acetaminophen Extra Strength] 500 mg tablet 1,000 mg PO Q8H PRN (Reason: Pain) Qty: 60 1RF docusate sodium 100 mg capsule 100 - 200 mg PO BID PRN (Reason: Constipation) Qty: 60 1RF ibuprofen 600 mg tablet 600 mg PO Q6H PRN (Reason: Pain) Qty: 30 0RF oxycodone 5 mg tablet 5 mg PO Q4H PRN (Reason: Severe Pain) Qty: 10 0RF Continued ferrous sulfate 325 mg (65 mg iron) tablet 325 mg PO QDAY Classic 28 mg iron- 800 mcg tablet 1 tab PO DAILY Discontinued metronidazole 500 mg tablet 500 mg PO BID Qty: 14 0RF Activity Restrictions: Additional Comments Diet: Regular Print Language: Togolese Patient Instructions: Surgery Anesthesia After, Vaginal After, Depression Follow-up Care: Jose M Morgan MD [Provider Admit Priv/Credential] -
--- NOTE | 2024-09-17 12:09 | Labor Flowsheet ---
Labor Flowsheet Datetime Report Generated by CPN: 09/17/2024 12:08 Datetime: 09/17/2024 09:30 VITAL SIGNS NBP Sys/Katherin/Mean (mmHg): 128 : 79 : 90 Pulse: 79 Datetime: 09/16/2024 03:00 Stage of : Recovery Datetime: 09/14/2024 16:32 Epidural Procedure Other: Cath Removed; Cath Intact Datetime: 09/14/2024 15:15 PAIN Pain Scale: 3 Pain Presence: Intermittent Pain Type: Cramping Pain Location: Abdomen Pain Relief Measures: Pain Medication Given Datetime: 09/14/2024 15:12 Membranes Ruptured Date/Time: 09/14/2024 13:28 Datetime: 09/14/2024 14:59 Vital Sign Comments: Pt and arm bent during BP reading Datetime: 09/14/2024 14:55 Patient Care Comments: Datetime: 09/14/2024 14:48 SpO2 (%): 100 Datetime: 09/14/2024 14:39 I/O Interventions: Straight Cath (ml) @ 100 Datetime: 09/14/2024 14:30 Frequency (min): 1-3 Quality: Moderate Duration (sec): 60-110 Pattern: Normal: <= 5 Contractions in 10 Minutes Resting Tone (Palpate): Relaxed ASSESSMENT A Monitor Mode: External US FHR Baseline Rate : 145 Variability: Moderate 6-25 bpm Accelerations: None Decelerations: Early Category: Category I Datetime: 09/14/2024 14:23 LaborFlag: Labor Datetime: 09/14/2024 14:15 UTERINE ACTIVITY Monitor Mode: External Datetime: 09/14/2024 14:09 COMMUNICATION Communication Comments: Dr. Seaman at bedside Datetime: 09/14/2024 14:05 VAGINAL EXAM Dilatation (cm): 10.0 Effacement (%): 100 Station: 0 Datetime: 09/14/2024 14:03 Anesthesia Comments: HAMMERER Niño at bedside Datetime: 09/14/2024 13:58 Monitor Interventions for UA: Iva Adjusted Datetime: 09/14/2024 13:50 PATIENT CARE IV/Blood Work: IV Bolus Started Datetime: 09/14/2024 13:49 FHR Baseline Changes: Tachycardia Pain Assessment Comments: Pt c/o perineal pain and pressure Datetime: 09/14/2024 13:47 Vaginal Exam Comments: bloody show Datetime: 09/14/2024 13:46 Exam by: RN Shanell Datetime: 09/14/2024 13:28 Membrane Status: Ruptured Membranes Rupture Method: Spontaneous Amniotic Fluid Color: Clear Amniotic Fluid Amount: Moderate Datetime: 09/14/2024:23 Medication Comments: Zofran 4 mg Datetime: 09/14/2024 13:08 Temperature (C): 36.9 Datetime: 09/14/2024 13:00 Pitocin Checklist: At Least 1 Acceleration of 15 bpm x 15 Seconds in 30 Minutes or Adequate Variabi lity; No More than 1 Late Deceleration Occurred in Past 30 Minutes; No More than 2 Variable Decelerat ions > 60 Seconds in Duration and decreasing >60 bpm in 30 minutes; No More than 5 Uterine Contractio ns in 10 Minutes for any 20 Minute Interval; Uterus Palpates Soft between Contractions Datetime: 09/14/2024 12:48 ANESTHESIA Epidural Procedure: Test Dose Datetime: 09/14/2024 12:46 Comments: difficulty tracing FHR d/t maternal position during DA Datetime: 09/14/2024 12:44 PROCEDURE TIME OUT Procedure Type: Time out Procedure Verify: Correct Patient Identity; Correct Side and Site are Marked; Accurate Procedure Co nsent Form; Agreement on Procedure to be Done; Correct Patient Position; Safety Precautions Based on Patient History or Medication Use Datetime: 09/14/2024 12:00 Respirations: 17 Datetime: 09/14/2024 11:41 MEDICATIONS Pitocin (milliunits): Increased to @ 3 mu Datetime: 09/14/2024 11:36 Patient Position/Activity: Left Lateral Datetime: 09/14/2024 10:53 Analgesics/Sedatives: Fentanyl (mcg) @ 50 mcg Datetime: 09/14/2024 09:04 Cervix, Consistency: Soft Cervix, Position: Posterior Datetime: 09/14/2024 08:11 Temperature Route: Oral Pain Coping: Breathing Through Contractions
== END 2024-09-17 12:07 | disposition home or self-care (01) | DRG 798 ==
LOC: WFO 07:47 → FBP 07:50
PROVIDERS: ADMIT Obstetrics & Gynecology; ATTEND Obstetrics & Gynecology
DX: F10.21 Alcohol dependence, in remission; O99.314 Alcohol use complicating childbirth; O99.284 Endocrine, nutritional and metabolic diseases complicating childbirth; Z30.2 Encounter for sterilization; Z37.0 Single live birth; E83.01 Wilson's disease; O71.82 Other specified trauma to perineum and vulva; Z3A.39 39 weeks gestation of pregnancy; Z79.899 Other long term (current) drug therapy; Z86.19 Personal history of other infectious and parasitic diseases; Z87.59 Personal history of other complications of pregnancy, childbirth and the puerperium